=== PATIENT | male | born 1950 | race Caucasian/White ===

== ENCOUNTER 2017-10-23 12:46 | Inpatient (IN) | payer MEDICARE, SELFPAY ==
[2017-10-23] VITALS (9 sets, daily range): BP systolic 125–153; BP diastolic 52–69; PULSE 81–143; RESP 15–22; TEMP 36.7–37.3; O2SAT 95–100; BMI 58.2; BMI 57.4
--- NOTE | 2017-10-23 13:57 | RAD_ITS ---
STUDY: X-RAY CHEST REASON FOR EXAM: Male, 67 years old. Recent fall. TECHNIQUE: Single AP portable view of the chest. COMPARISON: None. FINDINGS: EKG electrodes are seen. Minimal increased markings at the lung bases suggests some mild bibasilar atelectasis. There is no demonstrated pleural abnormality. There is borderline cardiomegaly. Normal mediastinum and osiel. Normal visualized pulmonary arteries. Normal visualized aortic arch and descending thoracic aorta. There are diffuse degenerative changes of the visualized thoracic spine. Normal visualized ribs, clavicles, and shoulders. There is no demonstrated abnormality of the visualized soft tissue structures of the upper abdomen. RAD/Chest 1 View (Portable) IMPRESSION: Mild degree of increased markings at the lung bases suggestive of mild basilar atelectasis. Electronically Signed: Tab Blanco MD at 14:40 EST Tel [phone], Service support ,
--- NOTE | 2017-10-23 13:57 | EKG12_ITS ---
Test Reason : FALL Blood Pressure : / mmHG Vent. Rate : 092 BPM Atrial Rate : 092 BPM P-R Int : 168 ms QRS Dur : 086 ms QT Int : 386 ms P-R-T Axes : 059 061 068 degrees QTc Int : 477 ms Normal sinus rhythm Normal ECG Confirmed by DENISA BAL, TYRA ([id number]), design editor FRANCISCO SARMIENTO ([id number] on 10/25/2017 11:43:05 AM Referred By: VINNIE Confirmed By:TYRA CRAWLEY MD
--- NOTE | 2017-10-23 14:00 | ED.VISSUMM ---
- ER Visit Summary Date of Service: 10/23/17 Chief Complaint: Fell at home and unable to get up History of Present Illness: The patient is a 67 M overly obese with a history of insulin-dependent diabetes, hypertension and chronic severe lymphedema both lower extremities. Patient lives alone. States he was walking to his house today lost his balance and fell late on the floor 3 hours was able to get up. He states he was found by the person who brings him meals to his home. He really denies any his head or LOC. He denies any specific pain just that he feels he was unable to get up. He has had some recent diarrhea but no nausea. No headache or chest pain. No fever. Physical Examination: Vital signs are stable on initial presentation is tachycardic at 140 is currently about 110. Afebrile. Pulse is 90% on room air no signs of hypoxia. H EENT exam is atraumatic. C-spine nontender. Lungs clear to auscultation bilaterally. Diminished in both bases. Heart tachycardic no murmur. Abdomen is morbidly obese but soft. Normal bowel sounds no peritoneal signs. He is moving all 4 extremities. He has severe and chronic lymphedema both lower extremities above his knees. Down of his feet. He is severe in chronic changes of the skin of both feet. Secondary to lymphedema. I do not feel any gross bony deformities. He has no hip pain to palpation. Neurologically is awake and alert without focal deficits. Test Results: White count is elevated 15.9 which is most likely from the breakdown of skin infections his lower extremities. H&H 11.6 and 37. No bands. Electro lites are unremarkable. His gap is 10. Creatinine is 1. His glucose is 97. CPK is elevated but it is only 634. I suspect that secondary to his prolonged downtime. Chest x-ray shows chronic changes but no acute process. His EKG is a sinus rhythm rate of 92 with no acute abnormalities. Emergency Department Course and Treatment: Repeat exam patient is doing well at 1525. He requested something for pain. He will be written for IV morphine and Zofran. Treatment Plan: Patient's current need further evaluation and antibiotic therapy. He will also most likely need podiatry consultation and possible custodial placement. I will speak to the hospitalist about admission Disposition: Admission Impression: Fall at home Prolonged downtime History of chronic lower extremity lymphedema with lower extremity cellulitis History of insulin dependent diabetes This note was generated with [employer] dictation software. It may contain incorrect words, spelling, and punctuation that were not noted in review of the chart prior to signing ED Disposition - Plan for ED Patient: Chief Complaint: Fall Referrals: NOT,DEFINED [NON-STAFF] -
[2017-10-23 14:23] LABS: Absolute Lymphocyte Count 1.15 X10^3/ul (0.83-4.51); Absolute Neutrophil Count 13.4 X10^3/uL (2.0-7.7); Basophil# 0.02 X10^3/uL; Basophil% 0.1 % (0-1); Hematocrit 37.2 % (40-54); Hemoglobin 11.6 g/dl (13.0-16.5); Lymphocyte # 1.15 X10^3/ul (4.0); Lymphocyte % 7.2 % (19-41); Mean Corp Hgb Conc 31.2 g/gl (32-36); Mean Corpuscular Hgb 29.9 pg (27.0-32.0); Mean Corpuscular Volume 95.9 fL (80-94); Mean Platelet Vol. 10.5 fl (6.2-12.0); Monocyte# 1.26 X10^3/uL; Monocyte% 7.9 % (0-10); Neutrophil # 13.36 X10^3/uL (2.7-7.7); Neutrophil % 84.3 % (47-70); Platelet Count 244 K/mm3 (150-450); RBC Distribution Width CV 15.1 % (11.6-14.6); RBC Distribution Width SD 51.1 fl (35.1-43.9); Red Blood Count 3.88 M/mm3 (4.6-6.2); White Blood Count 15.9 K/mm3 (4.4-11.0)
[2017-10-23 14:24] LABS: POSITIVE COUNT NO; POSITIVE DIFFERENTIAL NO; POSITIVE MORPHOLOGY NO
[2017-10-23 14:43] LABS: Anion Gap 10 (5-15); BUN 17 mg/dL (7-18); BUN/Creat Ratio 16.8 RATIO (10-20); CPK Total, Creatine Kinase 634 U/L (39-308); Chloride 102 mmol/L (98-107); Creatinine, Serum 1.01 mg/dL (0.70-1.30); EST Glomerular Filtration Rate 79 mL/min (>60); Est Glom Filt Rate - Afr Amer 95 mL/min (>60); Estimated Creatinine Clearance 71.94 ml/min; Glucose 97 mg/dL (70-110); Potassium 4.2 mmol/L (3.5-5.1); Sodium Level 137 mmol/L (136-145)
--- NOTE | 2017-10-23 16:20 | HP.PCM_ITS ---
Problem List (1) Diabetic foot infection Status: Acute (2) Failure to thrive Status: Acute (3) Diabetes Status: Chronic (4) HTN (hypertension) Status: Chronic (5) Super obesity Status: Chronic (6) Lymphedema of both lower extremities Status: Chronic (7) Dyslipidemia Status: Chronic (8) GERD (gastroesophageal reflux disease) Status: Chronic (9) H/O poor personal hygiene Status: Chronic History of Present Illness Date of Admission: 10/23/17 Chief Complaint: fell The patient is a 67 year old M who fell and unable to get himself up. Patient was brought to the hospital and there patient was noted to have very severe diabetic foot cellulitis and have been requested for admission as such. Patient did not receive any antibiotics nor any imaging outside of a chest x- ray in the emergency room. Patient states that he has had lymphedema for many years and he has been using his lymphedema wraps. Patient has chronic changes to his feet and had been seeing podiatry but his certified nurses' aide retired years ago so has not seen a certified nurses' aide since then. Patient has just been seeing his primary care doctor for his medical care. Patient states that he has pretty much confined to a recliner and does note pain in the backs of his legs more recently. Patient has erythema and very malodorous feet and legs with lichenification of his feet and also his lower extremities. [] Past Medical History Past Medical History (Chronic Problems): Chronic Problems Diabetes (Chronic) HTN (hypertension) (Chronic) Super obesity (Chronic) Lymphedema of both lower extremities (Chronic) Dyslipidemia (Chronic) GERD (gastroesophageal reflux disease) (Chronic) H/O poor personal hygiene (Chronic) Allergies JOSHUA Inhibitors Allergy (Verified 08/31/14 16:29) Swelling cephalexin monohydrate [From Keflex] Allergy (Verified 08/31/14 16:29) Other Penicillins Allergy (Verified 08/31/14 16:29) Rash ibuprofen Adverse Reaction (Verified 08/31/14 16:29) Other naproxen Adverse Reaction (Verified 08/31/14 16:29) Upset Stomach Home Medications: Ambulatory Orders Medication Instructions Recorded Atenolol 50 mg PO DAILY 08/31/14 Calcitriol 0.5 mcg PO DAILY 08/31/14 Escitalopram Oxalate [Lexapro] 10 mg PO DAILY 08/31/14 Furosemide 40 mg PO BID 08/31/14 Pravastatin [Pravachol] 20 mg PO QHS 08/31/14 Acetaminophen [Tylenol Tablet] 650 mg PO Q6H PRN PRN #30 tablet 09/03/14 Aspirin 325 mg PO DAILY@0800 09/10/14 Insulin NPH Human Isophane 90 unit SQ BID 10/23/17 [Novolin N] Surgical History: cholecystectomy Lives: Alone Smoking Status: Former smoker Tobacco Use: Non-smoker Alcohol: None Drugs: None - *Family History Maternal History Items: No pertinent history, - - No heart disease Review of Systems Constitutional: Denies: Chills, Fever, Weight Change Eyes: Denies: Blurred vision, Double vision HEENT: Denies: Head Aches, Sinus Congestion, Sinus Drainage Cardiovascular: Denies: Chest Pain, Palpitations Respiratory: Denies: Cough, Shortness of breath at rest, Sputum production Gastrointestinal: Reports: - - Hernia. Denies: Abdominal Pain, Nausea, Vomiting Genitourinary: Denies: Dysuria Musculoskeletal: Reports: Leg Pain, - - Leg swelling Skin: Reports: - - Erythema and lichenification of the skin of the lower extremities Neurological: Reports: Balance problems, - - Malaise weakness. Denies: Blurred vision, Double vision, Focal weakness Psychiatric: Denies: Anxiety, Depression, Homicidal Ideations, Suicidal Ideations Endocrine: Denies: Change in Body Habitus, Heat/ Cold Intolerance Hematologic/ Lymphatic: Denies: Easy Bruising, Easy Bleeding, Hx of blood clot VTE Information - Inpt Only VTE Present on Admission: No VTE Pharm Prophylaxis ordered?: Yes Patient Problems: Active and Suspected Problems Diabetic foot infection (Acute) Failure to thrive (Acute) - Physical Exam General: Alert, Cooperative, No apparent distress, - - Morbid obese. Afebrile. HEENT: Atraumatic, Normocephalic, - - No scleral icterus Oral: Moist Mucosa, No Gingival or Mucosal Lesions/ Ulcerations Neck: No Nodes, Thyroid Normal Size and Texture Lungs: Clear to auscultation, Normal air movement, No rhonchi, No wheeze Cardiovascular: Regular rate, Regular Rhythm, Normal S1, Normal S2, No murmurs Abdomen: Soft, Non Tender, Non-Distended, Obese Extremities: No Calf Tenderness, - - Edema bilateral lower extremities. Skin: - - Extensive skin changes lower extremities with lichenification involving bilateral feet extensively also involving his upper legs. Lymphedematous changes lower extremities. Erythema and foul odor emanating from his feet. Multiple superficial ulcers on his legs and feet. On-Q mycosis of his toenails. Musculoskeletal: No Muscle Wasting, - - Morbidly obese and unable to adequately assess joints. Neurological: Neuro grossly intact, Muscle tone normal, Sensory exam intact to light touch and pain Psych/Mental Status: Normal Affect, Appropriate Vital Signs Temp Pulse Resp BP Pulse Ox 36.7 C 88 16 143/64 H 100 10/23/17 12:51 10/23/17 15:50 10/23/17 15:50 10/23/17 15:50 10/23/17 15:50 Oxygen Delivery Method Room Air Weight: 181.437 kg Body Mass Index (BMI) 58.2 Finger Stick Blood Glucose 268 Laboratory Tests Past 24 Hrs 10/23/17 10/23/17 13:02 13:02 WBC 15.9 H RBC 3.88 L Hgb 11.6 L Hct 37.2 L MCV 95.9 H MCH 29.9 MCHC 31.2 L RDW 15.1 H RDW Differential 51.1 H Plt Count 244 MPV 10.5 Immature Gran % (Auto) 0.500 Neut % (Auto) 84.3 H Lymph % (Auto) 7.2 L [place] % (Auto) 7.9 Eos % (Auto) 0.0 Baso % (Auto) 0.1 Absolute Neuts (auto) 13.4 H Absolute Lymphs (auto) 1.15 Total Counted Not Reportable Sodium 137 Potassium 4.2 Chloride 102 Carbon Dioxide 25.0 Anion Gap 10 BUN 17 Creatinine 1.01 Estim Creat Clear Calc 71.94 Est GFR (MDRD) Af Amer 95 Est GFR (MDRD) Non-Af 79 BUN/Creatinine Ratio 16.8 Glucose 97 Calcium 8.0 L Total Creatine Kinase 634 H Assessment/Plan Active and Suspected Problems Diabetic foot infection (Acute) Failure to thrive (Acute) 67-year-old white male presents after falling at home and unable to get up. Patient being admitted for diabetic foot wounds and infection. Also for rehabilitation purposes with physical and Occupational Therapy. 1. Diabetic foot wounds. Patient has very advanced lymphedema, lichenification of his feet. They are profoundly malodorous. Concern is for an underlying infection. Will check x-ray of his feet to see if he has deeper wounds. Patient may need a CAT scan. Patient stated that he would not be able to tolerate an MRI given claustrophobia but told him that he may not a good fit given his body habitus into a MRI scanner. Will ask for podiatry as well as infectious disease to assist. Check wound cultures. We will have wound care evaluate him as well. 2. Failure to thrive Quite frankly I am surprised the patient was able to do as well as he did on his own with his legs being what they are and his other physical limitations. Physical and Occupational Therapy evaluate and treat Explained to patient that he is likely going to require fdc facility upon discharge. 3. Diabetes mellitus type 2 Continue with patient's NPH but will also add sliding scale insulin. Check hemoglobin A1c 4. Lymphedema This is a chronic process. Though looking back in the patient's weights, appears to be pretty stable from 2013, last time he was at this hospital. We will check an echocardiogram. I would be concerned the patient has underlying pulmonary hypertension possibly group 3 due to obstructive sleep apnea. If so, would recommend patient having an outpatient polysomnogram to further evaluate that. 5. Morbid obesity Complicating care. Weight loss advised 6. DVT prophylaxis with low molecular weight heparin. Code Visit Inpatient E&M: 35356 Init Hosp L3
--- NOTE | 2017-10-23 16:46 | ECHOD_ITS ---
Reason For Study: CHF Procedure This was a 2D Doppler, Color Flow transthoracic echocardiogram. The study was technically difficult. Due to morbid obesity. Contrast injection was performed. Exam performed portable in patient room. Left Ventricle Mild concentric left ventricular hypertrophy. The estimated ejection fraction is 65 %. No regional wall motion abnormalities noted. Right Ventricle Moderately dilated right ventricle. Normal systolic function. Atria The left atrium is moderately enlarged. Normal right atrium. Normal atrial septum. Mitral Valve Mild diffuse mitral valve thickening. Mild mitral valve stenosis. Peak transmitral valve gradient 11 mmHg. Mean transmitral valve gradient 5 mmHg. Tricuspid Valve Normal tricuspid valve. Trivial tricuspid valve insufficiency. Right ventricular systolic pressure estimated to be 45 mmHg. Moderate pulmonary hypertension. Aortic Valve Trisinus/trileaflet aortic valve. Moderate diffuse aortic valve thickening. Mild focal aortic valve calcification. Mild restriction of the aortic valve. Mild aortic stenosis. Peak aortic valve gradient 37 mmHg. Mean aortic valve gradient 21 mmHg. Pulmonic Valve Normal pulmonic valve. Great Vessels Normal aortic root. Normal arch. The inferior vena cava is dilated. No collapse of the inferior vena cava. Pericardium/Pleural No pericardial effusion. Medication Diluted definity 3.0ml given slow IV push to enhance endocardial definition. MMode/2D Measurements & Calculations LVIDd: 4.0 cm IVSd: 1.4 cm LVOT diam: 2.1 cm LVIDs: 2.7 cm LVPWd: 1.3 cm LVOT area: 3.4 cm2 RVDd: 4.3 cm FS: 32.4 % Ao root diam: 3.1 cm LAV(MOD-bp): 74.6 ml LA A4 area: 23.8 cm2 LA dimension: 4.7 cm LAV(MOD-bp) Indexed: 27.0 ml/m2 LAV(MOD-sp2): 71.0 ml LAV(MOD-sp4): 76.2 ml RA A4 area: 15.6 cm2 Doppler Measurements & Calculations MV E max cohn: 150.4 cm/sec Lat Peak E' Chon: 7.9 cm/sec Med Peak E' Chon: 8.5 cm/sec MV A max chon: 125.3 cm/sec E/E' lat: 18.9 E/E' med: 17.7 MV E/A: 1.2 MV V2 max: 167.6 cm/sec Ao V2 max: 318.1 cm/sec LV V1 max: 142.8 cm/sec MV max P.5 mmHg Ao max P.1 mmHg LV V1 max P.2 mmHg MV V2 mean: 109.5 cm/sec Ao V2 mean: 217.8 cm/sec LV V1 mean P.1 mmHg MV mean P.3 mmHg Ao mean P.9 mmHg LV V1 mean: 93.5 cm/sec MV V2 VTI: 39.1 cm Ao V2 VTI: 58.5 cm LV V1 VTI: 32.3 cm MVA(VTI): 2.8 cm2 BLANCHE(I,D): 1.9 cm2 BLANCHE(V,D): 1.5 cm2 SV(LVOT): 110.0 ml PA V2 max: 132.9 cm/sec TR max chon: 313.7 cm/sec TR max P.0 mmHg Interpretation Summary Mild concentric left ventricular hypertrophy. The estimated ejection fraction is 65 %. Moderately dilated right ventricle. The left atrium is moderately enlarged. Mild mitral valve stenosis. Trivial tricuspid valve insufficiency. Right ventricular systolic pressure estimated to be 45 mmHg. Moderate pulmonary hypertension. Mild restriction of the aortic valve. Mild aortic stenosis. The study was technically difficult. There is no comparison study available. Contrast injection was performed. Ordering Physician: Rajiv Mojica Referring Physician: NO PCP Performed By: Lexie Peres RDCS, RVT
--- NOTE | 2017-10-23 16:49 | RAD_ITS ---
STUDY: X-RAY - RIGHT FOOT CLINICAL: Male, 67 years old. Infection of the right foot. TECHNIQUE: 2 view(s) of the foot. COMPARISON: None. FINDINGS: Normal talus, calcaneus, and tarsal bones. Dorsal enthesophyte of the calcaneus. Normal visualized subtalar, talonavicular, calcaneocuboid, tarsal and tarsometatarsal articulations. Normal proximal and mid metatarsals. Limited visibility of the metatarsophalangeal joints and phalanges secondary to flexion, overlapping and foreshortening. The distal phalanges are unremarkable. The proximal phalanx of the great toe is unremarkable. The middle phalanx of the second and third toe are unremarkable. The proximal phalanges of the second through the fifth toe, the middle phalanx of the fourth toe and most of the fifth toe is not adequately visualized. Marked soft tissue swelling. RAD/Foot 2 Views IMPRESSION: Negative for a definitive acute bone or joint findings noting that the metatarsophalangeal joints and many of the phalanges are not adequately visualized as outlined above. Marked soft tissue swelling. Electronically Signed: Consuelo Thomas MD at 19:04 EST , Service support ,
--- NOTE | 2017-10-23 16:55 | RAD_ITS ---
STUDY: X-RAY - LEFT FOOT CLINICAL: Male, 67 years old. Infection of the foot. TECHNIQUE: 2 view(s) of the foot. COMPARISON: None. FINDINGS: Normal talus, calcaneus, and tarsal bones. Normal visualized subtalar, talonavicular, calcaneocuboid, tarsal and tarsometatarsal articulations. Mild hypertrophic changes of the first metatarsal. Normal second through the fifth metatarsal. Limited visualization of the metatarsophalangeal joints, phalanges and interphalangeal joints secondary to flexion, overlapping of foreshortening of the toes and related joints. The distal phalanges appear to be normal. The middle phalanges of the second third and fourth toes appear to be normal. The proximal phalanges of the first, second, third and fourth toes are poorly visualized. The middle and proximal phalanges of the fifth toe are poorly visualized and may be abnormal. Marked soft tissue swelling. RAD/Foot 2 Views IMPRESSION: Marked soft tissue swelling without a definite underlying bone or joint abnormality. The phalanges and particularly are poorly visualized in area secondary to flexion, foreshortening and overlapping. The proximal phalanges of the second, third, fourth and especially the fifth toes are very poorly visualized and cannot be described as normal. The middle phalanges are grossly normal. The distal phalanges are all normal. Electronically Signed: Consuelo Thomas MD at 17:35 EST , Service support ,
[2017-10-23] MEDS: oxyCODONE 5 MG Tablet PO ×2 (18:12→22:17)
--- NOTE | 2017-10-23 18:29 | HP.PCM_ITS ---
Problem List (1) Infection of left foot Status: Chronic (2) Type 2 diabetes mellitus with diabetic polyneuropathy Status: Chronic (3) Ulcer of right lower extremity with fat layer exposed Status: Chronic (4) Ulcer of left lower extremity with fat layer exposed Status: Chronic (5) Super obesity Status: Chronic (6) Lymphedema of both lower extremities Status: Chronic (7) H/O poor personal hygiene Status: Chronic (8) Failure to thrive Status: Acute History of Present Illness Date of Admission: 10/23/17 Chief Complaint: leg wounds and left foot infection and pain The patient is a 67 year old M with multiple comorbidities including diabetes with neuropathy, lymphedema, failure to thrive, superobesity presents with progressive worsening of lower extremity wounds that have been present for an unknown timeframe probably over a year. He also has an odor and pain that has presently worse in the past couple days to the left lower extremity. His pain is moderate to severe. She denies trauma. He is not ambulating a significant degree and lives alone at home. He denies routine wound care or hygiene. He has not been to the doctor in many years and is not aware of his past medical history. He fell at home and was on the ground for several hours when he was found by a [employer] worker. Past Medical History Past Medical History (Chronic Problems): Chronic Problems Diabetes (Chronic) HTN (hypertension) (Chronic) Super obesity (Chronic) Lymphedema of both lower extremities (Chronic) Dyslipidemia (Chronic) GERD (gastroesophageal reflux disease) (Chronic) H/O poor personal hygiene (Chronic) Type 2 diabetes mellitus with diabetic polyneuropathy (Chronic) Ulcer of right lower extremity with fat layer exposed (Chronic) Ulcer of left lower extremity with fat layer exposed (Chronic) Infection of left foot (Chronic) Allergies JOSHUA Inhibitors Allergy (Verified 08/31/14 16:29) Swelling cephalexin monohydrate [From Keflex] Allergy (Verified 08/31/14 16:29) Other Penicillins Allergy (Verified 08/31/14 16:29) Rash ibuprofen Adverse Reaction (Verified 08/31/14 16:29) Other naproxen Adverse Reaction (Verified 08/31/14 16:29) Upset Stomach Home Medications: Ambulatory Orders Medication Instructions Recorded Atenolol 50 mg PO DAILY 08/31/14 Calcitriol 0.5 mcg PO DAILY 08/31/14 Escitalopram Oxalate [Lexapro] 10 mg PO DAILY 08/31/14 Furosemide 40 mg PO BID 08/31/14 Pravastatin [Pravachol] 20 mg PO QHS 08/31/14 Acetaminophen [Tylenol Tablet] 650 mg PO Q6H PRN PRN #30 tablet 09/03/14 Aspirin [Aspirin, Baby] 81 mg PO DAILY@0800 10/23/17 Famotidine [Pepcid] 40 mg PO DAILY 10/23/17 Insulin NPH Human Isophane 90 unit SQ BID 10/23/17 [Novolin N] Surgical History: cholecystectomy Lives: Alone Smoking Status: Former smoker Tobacco Use: Non-smoker Alcohol: None Drugs: None - *Family History Maternal History Items: No pertinent history, - - No heart disease Review of Systems Constitutional: Denies: Chills, Fever, Weight Change, Fatigue HEENT: Denies: Sore Throat Cardiovascular: Denies: Chest Pain, Claudication - However he does not report significant ambulation to properly answer this question Respiratory: Denies: Shortness of Breath Gastrointestinal: Reports: Diarrhea. Denies: Nausea, Vomiting Musculoskeletal: Reports: Foot Pain - Left, Leg Pain - Left Skin: Reports: Skin Changes, Wounds, - Neurological: Reports: Balance problems, Numbness VTE Information - Inpt Only VTE Present on Admission: No VTE Mechan Device Prophylaxis: None VTE Pharm Prophylaxis ordered?: Yes Patient Problems: Active and Suspected Problems Diabetic foot infection (Acute) Failure to thrive (Acute) - Physical Exam General: Alert, Oriented x3, Cooperative HEENT: Atraumatic Extremities: No cyanosis, Capillary Refill Less than 3 Seconds - All digits bilateral lower extremity, No Calf Tenderness - Right leg, Diminished Peripheral Pulses - Weak dorsalis pedis and nonpalpable PT pulses bilateral secondary to significant swelling and hyper obesity, Edema, Tenderness - Left ankle particularly the wound site Skin: Ulcer/ Wound - Right anterior leg pre-debridement 1.0 x 1.1 cm x 0.1 cm post debridement (1.1 x 1.2 x 0.1 cm) this ulcer has a granular and fibrous base without odor. The left medial leg measures pre-debridement 4.0 by 3.4 by by 0.1 cm (post debridement 4.1 x 3.5 x 0.1 cm ) with the same wound base. The distal lateral left leg ulcer measures approximately pre-debridement 5 x 5 x 0.1 cm (5.1 x 5.1 x 0.1 cm). This wound bed is odorous, fibrous, dark discoloration with exposed subcutaneous tissue. There is no exposed bone or tendon or fascia., - - Bilateral leg and foot skin is poor quality with lichenification, invagination, animal hair debris, maceration and warmth equal to bilateral legs. Left heel is warm to touch and there is some additional skin peeling here. There is no deep bulla or palpable drainable abscess however there is still concern for this due to the significant induration of bilateral lower extremities particularly the left with his noted pain. There is no purulence on expression or madhu necrosis bilateral Musculoskeletal: Muscle Wasting, Tenderness - Palpation to left heel lower lateral leg Lymphatic: - - Lymphedema bilateral lower extremities foot leg and thigh Neurological: - - Lack of epicritic sensation bilateral lower extremities light touch and no pain with wound ulcer debridement bilateral lower extremity Psych/Mental Status: Normal Affect, Appropriate, Anxious Vital Signs Temp Pulse Resp BP Pulse Ox 98.1 F 91 15 146/64 H 97 10/23/17 12:51 10/23/17 16:19 10/23/17 16:19 10/23/17 16:19 10/23/17 16:19 Oxygen Delivery Method Room Air Assessment/Plan Active and Suspected Problems Diabetic foot infection (Acute) Failure to thrive (Acute) Left leg ulcers with fat layer exposed, infected Rule out abscess or deeper infection of the left lower extremity leg and heel areas Left lower extremity pain Deep venous thrombosis remains a differential diagnosis Right leg ulcer with fat layer exposed, not infected Diabetes with neuropathy Superobesity Bilateral chronic lower extremity lymphedema and edema Other comorbidities being worked up I reviewed and discussed Mr. Loza's case with him as well as the intensive care unit staff. His diagnostic data was reviewed and it is noted he has a white blood cell count that is elevated to 15.8 and a sedimentation rate of 113. His C-reactive protein level is pending. His left foot x-ray is negative for soft tissue emphysema or foreign body, acute fracture dislocation, or obvious Charcot changes. Additional leg x-rays were ordered and pending stat. I also recommended an MRI to further assess for abscess or deeper infection. The patient's body habitus will not allow him to fit in the MRI machine and he is claustrophobic. Therefore an urgent CT scan was ordered and the results are pending. All of the ulcer sites a per mentioned were debrided with a 15 blade scalpel after verbal consent was obtained. Local anesthetic was not required due to loss of feeling due to neuropathy. This was performed in a subcutaneous excisional manner to remove nonviable subcutaneous tissue, fibrous tissue, biofilm, and slough. Pressure was applied to maintain hemostasis and he tolerated this well. Aerobic and anaerobic and MRSA PCR cultures were taken from the infected left leg ulcer site. His hygiene is very poor and his legs were aggressively cleaned the evening. Vaseline was applied as an emollient to soften his lichenified tissue and additional he declined surgical scrub will be performed tomorrow bedside. Adaptic was placed over the ulcer sites and a multilayer compression dressing. He was encouraged to elevate and to keep his painful left heel off of the bed. He understands he is high risk for limb loss. Thank you for the consultation. I will continue to follow him very close while in house. Pending his CT scan and progress with the IV antibiotics overnight he understands surgical intervention may be indicated. Infectious disease is on consultation and will be appreciated. To continue on IV antibiotics at this time; broad-spectrum meropenem and vancomycin. His chronic lymphedema and lack of self-care will need to be addressed as a part of his discharge planning after his more critical issues are considered controlled. Wound care consultation will also be appreciated. Lack of prophylaxis, pain management, and medical management per primary team is appreciated. Corazon De La Cruz, [facility] [phone]
--- NOTE | 2017-10-23 18:36 | CT_ITS ---
CT Lower Extremity W/O Contrast INDICATION: LEFT LOWER EXTREMITY ADVANCED LYMPHEDEMA, CONCERN FOR ABSCESS OR INFECTION, DIAB, HTN, LEG CELLULITIS COMPARISON: None TECHNIQUE: Axial noncontrast CT imaging of the left lower extremity with coronal and sagittal reformatted images. Radiation dose optimization technique applied. FINDINGS: There is diffuse skin thickening at the lower leg from the knee to the foot with skin thickness up to 1 cm. Multiple calcifications, some of which may be phleboliths are seen in the superficial subcutaneous soft tissue. Subcutaneous edema is noted. The muscle compartments appear well delineated. There is no evidence of drainable fluid collection. There is no evidence of soft tissue air. There is no evidence of osseous erosion. CT/Extremity Lower without Contra IMPRESSION: Severe diffuse skin thickening and subcutaneous edema as detailed above. No evidence of drainable abscess. at 0035 Reported and signed by: Cynthia Phillips MD Electronically Signed: Cynthia Phillips MD at 23:34 EST Tel , Service support ,
[2017-10-23 18:57] LABS: Erythrocyte Sedimentation Rate 113 mm/hr (0-20)
[2017-10-23 19:25] LABS: Hemoglobin A1c 8.4 % (4.2-6.3)
[2017-10-23] MEDS: Furosemide 40 MG Tablet PO (21:01)
[2017-10-23] MEDS: Pravastatin 20 MG Tablet PO (21:02)
[2017-10-23 21:23] LABS: Glucose 55 mg/dL (70-110)
[2017-10-23] MEDS: 0.9% NaCl Peripheral Flush Adult/Peds IV (21:56)
[2017-10-23] MEDS: Dextrose 50%-Water 25 GM/50 ML DISP.SYRIN IV (21:56)
[2017-10-23 22:12] LABS: Probe Check PASS; Staph aureus DNA By PCR POSITIVE (Negative)
[2017-10-23 22:21] LABS: M R Staph aureus DNA By PCR POSITIVE (Negative)
[2017-10-23 22:41] LABS: Bedside Glucose 53 mg/dL (70-110)
[2017-10-23 22:41] LABS: Bedside Glucose 58 mg/dL (70-110)
[2017-10-23 22:41] LABS: Bedside Glucose 39 mg/dL (70-110)
[2017-10-23 22:41] LABS: Bedside Glucose 106 mg/dL (70-110)
[2017-10-23] MEDS: LORazepam 2 MG/ML Syringe IV (23:01)
--- NOTE | 2017-10-23 23:30 | RAD_ITS ---
XR Tibia/Fibula 2 Views INDICATION: left tib/fib infection COMPARISON: None TECHNIQUE: Frontal and lateral views of the left tibia and fibula FINDINGS: Degenerative changes are noted at the left knee with joint space narrowing, predominantly at the medial compartment with large osteophytes. The tibia and fibula appear intact. Ankle mortise appears preserved. Multiple phleboliths are noted. Diffuse soft tissue swelling is noted. RAD/Tibia & Fibula 2 Views IMPRESSION: Degenerative changes and diffuse soft tissue swelling. No evidence of fracture or erosion. at 0028 Reported and signed by: Cynthia Phillips MD Electronically Signed: Cynthia Phillips MD at 23:26 EST Tel , Service support ,
[2017-10-24 03:00] VITALS: BP 142/45; PULSE 102; RESP 18; TEMP 37.9; O2SAT 94
[2017-10-24 03:16] LABS: Bedside Glucose 104 mg/dL (70-110)
[2017-10-24] MEDS: oxyCODONE 5 MG Tablet PO ×3 (03:43→19:25)
[2017-10-24 04:08] LABS: Anion Gap 8 (5-15); BUN 16 mg/dL (7-18); BUN/Creat Ratio 16.5 RATIO (10-20); Calcium,Total 7.5 mg/dL (8.5-10.1); Chloride 102 mmol/L (98-107); Creatinine, Serum 0.97 mg/dL (0.70-1.30); EST Glomerular Filtration Rate 83 mL/min (>60); Est Glom Filt Rate - Afr Amer 100 mL/min (>60); Estimated Creatinine Clearance 74.91 ml/min; Glucose 97 mg/dL (70-110); Potassium 4.2 mmol/L (3.5-5.1); Sodium Level 137 mmol/L (136-145)
[2017-10-24 04:23] LABS: Absolute Lymphocyte Count 1.88 X10^3/ul (0.83-4.51); Absolute Neutrophil Count 11.2 X10^3/uL (2.0-7.7); Basophil# 0.02 X10^3/uL; Basophil% 0.1 % (0-1); Eosinophil# 0.01 X10^3/uL; Eosinophils% 0.1 % (0-5); Hematocrit 33.2 % (40-54); Hemoglobin 10.2 g/dl (13.0-16.5); Lymphocyte # 1.88 X10^3/ul (4.0); Lymphocyte % 12.4 % (19-41); Mean Corp Hgb Conc 30.7 g/gl (32-36); Mean Corpuscular Hgb 29.5 pg (27.0-32.0); Monocyte# 2.05 X10^3/uL; Monocyte% 13.5 % (0-10); Neutrophil # 11.23 X10^3/uL (2.7-7.7); Neutrophil % 73.7 % (47-70); Platelet Count 220 K/mm3 (150-450); RBC Distribution Width CV 15.3 % (11.6-14.6); RBC Distribution Width SD 53.3 fl (35.1-43.9); Red Blood Count 3.46 M/mm3 (4.6-6.2); White Blood Count 15.2 K/mm3 (4.4-11.0)
[2017-10-24 04:24] LABS: Differential Indicated SCAN CRITERIA MET; POSITIVE COUNT NO; POSITIVE DIFFERENTIAL YES; POSITIVE MORPHOLOGY NO
[2017-10-24 05:22] LABS: Differential Comment SCANNED
--- NOTE | 2017-10-24 07:50 | PHA.PHARE_ITS ---
Subjective/Objective Date: 10/24/17 Time: 07:48 Antibiotic: Vancomycin Type of Consult: New start Indications for Therapy: Skin/Soft Tissue Labs: Sodium 137 mmol/L (136-145) 10/24/17 03:45 Potassium 4.2 mmol/L (3.5-5.1) 10/24/17 03:45 Chloride 102 mmol/L (98-107) 10/24/17 03:45 Carbon Dioxide 27.0 mmol/L (21.0-32.0) 10/24/17 03:45 Anion Gap 8 (5-15) 10/24/17 03:45 BUN 16 mg/dL (7-18) 10/24/17 03:45 Creatinine 0.97 mg/dL (0.70-1.30) 10/24/17 03:45 Est GFR (MDRD) Af Amer 100 mL/min (>60) 10/24/17 03:45 Est GFR (MDRD) Non-Af 83 mL/min (>60) 10/24/17 03:45 BUN/Creatinine Ratio 16.5 RATIO (10-20) 10/24/17 03:45 Glucose 97 mg/dL (70-110) 10/24/17 03:45 Pharmacy Plan for Drug Dosing: Goal vancomycin trough 10-15 mcg/mL. Patient loaded with vancomycin 2500mg IV x1 , recommend to continue 1000mg IV q12h for est trough 10 mcg/mL. Patient will likely begin to accumulate at some point given BMI, will monitor closely. Pharmacy Service will continue to monitor and adjust dosing as required. Pharmacy to order these labs: Trough - Vancomycin Labs to be done on (date): 10/26/17 Labs to be done (time): 09:00
--- NOTE | 2017-10-24 08:33 | PCM.PN.HOSP ---
Patient Problems: Active and Suspected Problems Diabetic foot infection (Acute) Failure to thrive (Acute) Subjective: No new events. Vitals/I&O's: Vital Signs Temp Pulse Resp BP Pulse Ox 37.9 C H 102 H 18 142/45 H 94 10/24/17 03:00 10/24/17 03:00 10/24/17 03:00 10/24/17 03:00 10/24/17 03:00 Oxygen Flow Rate 2 Oxygen Delivery Method Nasal Cannula Weight: 181.1 kg Body Mass Index (BMI) 57.4 Intake and Output for Last 24 Hours 10/22/17 10/23/17 10/24/17 23:59 23:59 23:59 Intake Total 1835 / 1835 Output Total 1600 / 1600 Balance 235 / 235 General: Alert, Cooperative, No apparent distress HEENT: Atraumatic, Normocephalic Neck: No Nodes, Thyroid Normal Size and Texture Lungs: Clear to auscultation, Normal air movement, No rhonchi, No wheeze Cardiovascular: Regular rate, Regular Rhythm, Normal S1, Normal S2, No murmurs Abdomen: Bowel Sounds Present, Soft, Non Tender, Non-Distended, No Hepato-splenomegaly, Passing Flatus, Obese Extremities: Edema, - - Lateral lymphedema wraps, did not remove. Psych/Mental Status: Normal Affect, Appropriate Laboratory Results 10/23/17 18:30: S.aureus Protein A PCR POSITIVE H, MRSA (PCR) POSITIVE H 10/23/17 18:45: ESR 113 H 10/23/17 18:45: Hemoglobin A1c 8.4 H 10/23/17 20:44: POC Glucose 39 L* 10/23/17 20:57: Glucose 55 L 10/23/17 21:20: POC Glucose 53 L 10/23/17 21:43: POC Glucose 58 L 10/23/17 22:15: POC Glucose 106 10/24/17 03:05: POC Glucose 104 10/24/17 03:45: Sodium 137, Potassium 4.2, Chloride 102, Carbon Dioxide 27.0, Anion Gap 8, BUN 16, Creatinine 0.97, Estim Creat Clear Calc 74.91, Est GFR (MDRD) Af Amer 100, Est GFR (MDRD) Non-Af 83, BUN/Creatinine Ratio 16.5, Glucose 97, Calcium 7.5 L 10/24/17 03:45: WBC 15.2 H, RBC 3.46 L, Hgb 10.2 L, Hct 33.2 L, MCV 96.0 H, MCH 29.5, MCHC 30.7 L, RDW 15.3 H, RDW Differential 53.3 H, Plt Count 220, MPV 10.0, Immature Gran % (Auto) 0.200, Neut % (Auto) 73.7 H, Lymph % (Auto) 12.4 L, Giles % (Auto) 13.5 H, Eos % (Auto) 0.1, Baso % (Auto) 0.1, Absolute Neuts (auto) 11.2 H, Absolute Lymphs (auto) 1.88, Total Counted Not Reportable, Differential Comment SCANNED, Diff Path Review May foll Current Medications Acetaminophen (Tylenol) 650 mg PO Q6H PRN PRN PRN Reason: Mild Pain (scale 0-3)/T>100.7 Aspirin (Aspirin) 325 mg PO DAILY@0800 [facility] Atenolol (Tenormin (Beta Patrick)) 50 mg PO DAILY [facility] Calcitriol (Rocaltrol) 0.5 mcg PO DAILY [facility] Dextrose (D50w Syringe) 0 gm IV X1 PRN; Protocol PRN Reason: Hypoglycemia Last Admin: 10/23/17 21:56 Dose: 25 gm Enoxaparin Sodium (Lovenox) 40 mg SC DAILY@1000 [facility] Escitalopram Oxalate (Lexapro) 10 mg PO DAILY [facility] Furosemide (Lasix) 40 mg PO BIDLX [facility] Last Admin: 10/23/17 21:01 Dose: 40 mg Glucagon () 1 mg IM .X1 PRN PRN Reason: Hypoglycemia Sodium Chloride () 250 mls @ 15 mls/hr IV .[id number] PRN PRN Reason: SALINE FLUSH Sodium Chloride () 250 mls @ 15 mls/hr IV .[id number] PRN PRN Reason: SALINE FLUSH Meropenem 500 mg/ Sodium (Chloride) 60 mls @ 100 mls/hr IV Q6 [facility] Last Admin: 10/24/17 05:21 Dose: 100 mls/hr Vancomycin HCl (Vancomycin) 1,000 mg in 200 mls @ 200 mls/hr IV Q12H [facility] Influenza Virus Vaccine Quadrival (Fluarix/Fluzone) 0.5 ml IM .ONCE ONE Stop: 10/24/17 10:01 Insulin Aspart (Novolog Flexpen ([place])) 0 units SC TIDAC KARLEE PRN Reason: Protocol Last Admin: 10/23/17 21:00 Dose: Not Given Insulin Human NPH (Humulin N ([place])) 90 units SC BIDAC [facility]AR[facility] Magnesium Hydroxide (Milk Of Magnesia) 30 ml PO DAILY PRN PRN PRN Reason: Constipation Nutritional Formula (Lactose Free) (Glucerna Shake) 120 ml PO 4X/DAY [facility] Ondansetron HCl (Zofran) 4 mg IV Q8H PRN PRN PRN Reason: Nausea Oxycodone HCl (Oxyir) 5 mg PO Q4H PRN PRN PRN Reason: Moderate Pain (pain scale 4-5) Last Admin: 10/24/17 03:43 Dose: 5 mg Pravastatin Sodium (Pravachol) 20 mg PO QHS [facility] Last Admin: 10/23/17 21:02 Dose: 20 mg Sodium Chloride () 5 - 30 ml IV UD PRN PRN Reason: SALINE FLUSH Last Admin: 10/23/17 21:56 Dose: 20 ml Assessment/Plan Active and Suspected Problems Diabetic foot infection (Acute) Failure to thrive (Acute) 67-year-old white male presents after falling at home and unable to get up. Patient being admitted for diabetic foot wounds and infection. Also for rehabilitation purposes with physical and Occupational Therapy. 1. Diabetic foot wounds. Patient has very advanced lymphedema, lichenification of his feet. They are profoundly malodorous. Concern is for an underlying infection. Patient stated that he would not be able to tolerate an MRI given claustrophobia but told him that he may not a good fit given his body habitus into a MRI scanner. Will ask for podiatry as well as infectious disease to assist. Check wound cultures. We will have wound care evaluate him as well. Preliminary serology positive for MRSA staph aureus. Continue with vancomycin and meropenem. Tib-fib x-rays show degenerative changes with soft tissue swelling. CAT scan showed severe diffuse skin thickening and subcutaneous edema. No evidence of any drainable abscess. Foot x-ray showed marked soft tissue swelling without definite underlying bone or joint abnormality. 2. Failure to thrive Quite frankly I am surprised the patient was able to do as well as he did on his own with his legs being what they are and his other physical limitations. Physical and Occupational Therapy evaluate and treat Explained to patient that he is likely going to require snf facility upon discharge. 3. Diabetes mellitus type 2 Continue with patient's NPH but will also add sliding scale insulin. A1c 8.4. Blood sugars here thus far appear to be okay. Patient did have low blood sugar 55 this morning. 4. Lymphedema This is a chronic process. Though looking back in the patient's weights, appears to be pretty stable from 2013, last time he was at this hospital. We will check an echocardiogram. I would be concerned the patient has underlying pulmonary hypertension possibly group 3 due to obstructive sleep apnea. If so, would recommend patient having an outpatient polysomnogram to further evaluate that. Check liver function panel. 5. Morbid obesity Complicating care. Weight loss advised 6. DVT prophylaxis with low molecular weight heparin. Code Visit Inpatient E&M: 43670 Subs Hosp L2
--- NOTE | 2017-10-24 08:38 | PN_ITS ---
Patient Problems: Active and Suspected Problems Diabetic foot infection (Acute) Failure to thrive (Acute) Subjective: No new events. Vitals/I&O's: Vital Signs Temp Pulse Resp BP Pulse Ox 37.9 C H 102 H 18 142/45 H 94 10/24/17 03:00 10/24/17 03:00 10/24/17 03:00 10/24/17 03:00 10/24/17 03:00 Oxygen Flow Rate 2 Oxygen Delivery Method Nasal Cannula Weight: 181.1 kg Body Mass Index (BMI) 57.4 Intake and Output for Last 24 Hours 10/22/17 10/23/17 10/24/17 23:59 23:59 23:59 Intake Total 1835 / 1835 Output Total 1600 / 1600 Balance 235 / 235 General: Alert, Cooperative, No apparent distress HEENT: Atraumatic, Normocephalic Neck: No Nodes, Thyroid Normal Size and Texture Lungs: Clear to auscultation, Normal air movement, No rhonchi, No wheeze Cardiovascular: Regular rate, Regular Rhythm, Normal S1, Normal S2, No murmurs Abdomen: Bowel Sounds Present, Soft, Non Tender, Non-Distended, No Hepato- splenomegaly, Passing Flatus, Obese Extremities: Edema, - - Lateral lymphedema wraps, did not remove. Psych/Mental Status: Normal Affect, Appropriate Laboratory Results 10/23/17 18:30: S.aureus Protein A PCR POSITIVE H, MRSA (PCR) POSITIVE H 10/23/17 18:45: ESR 113 H 10/23/17 18:45: Hemoglobin A1c 8.4 H 10/23/17 20:44: POC Glucose 39 L* 10/23/17 20:57: Glucose 55 L 10/23/17 21:20: POC Glucose 53 L 10/23/17 21:43: POC Glucose 58 L 10/23/17 22:15: POC Glucose 106 10/24/17 03:05: POC Glucose 104 10/24/17 03:45: Sodium 137, Potassium 4.2, Chloride 102, Carbon Dioxide 27.0, Anion Gap 8, BUN 16, Creatinine 0.97, Estim Creat Clear Calc 74.91, Est GFR ( MDRD) Af Amer 100, Est GFR (MDRD) Non-Af 83, BUN/Creatinine Ratio 16.5, Glucose 97, Calcium 7.5 L 10/24/17 03:45: WBC 15.2 H, RBC 3.46 L, Hgb 10.2 L, Hct 33.2 L, MCV 96.0 H, MCH 29.5, MCHC 30.7 L, RDW 15.3 H, RDW Differential 53.3 H, Plt Count 220, MPV 10.0 , Immature Gran % (Auto) 0.200, Neut % (Auto) 73.7 H, Lymph % (Auto) 12.4 L, [place] % (Auto) 13.5 H, Eos % (Auto) 0.1, Baso % (Auto) 0.1, Absolute Neuts (auto ) 11.2 H, Absolute Lymphs (auto) 1.88, Total Counted Not Reportable, Differential Comment SCANNED, Diff Path Review May foll Current Medications Acetaminophen (Tylenol) 650 mg PO Q6H PRN PRN PRN Reason: Mild Pain (scale 0-3)/T>100.7 Aspirin (Aspirin) 325 mg PO DAILY@0800 [facility] Atenolol (Tenormin (Beta Patrick)) 50 mg PO DAILY [facility] Calcitriol (Rocaltrol) 0.5 mcg PO DAILY [facility] Dextrose (D50w Syringe) 0 gm IV X1 PRN; Protocol PRN Reason: Hypoglycemia Last Admin: 10/23/17 21:56 Dose: 25 gm Enoxaparin Sodium (Lovenox) 40 mg SC DAILY@1000 [facility] Escitalopram Oxalate (Lexapro) 10 mg PO DAILY [facility] Furosemide (Lasix) 40 mg PO BIDLX [facility] Last Admin: 10/23/17 21:01 Dose: 40 mg Glucagon () 1 mg IM .X1 PRN PRN Reason: Hypoglycemia Sodium Chloride () 250 mls @ 15 mls/hr IV .[id number] PRN PRN Reason: SALINE FLUSH Sodium Chloride () 250 mls @ 15 mls/hr IV .[id number] PRN PRN Reason: SALINE FLUSH Meropenem 500 mg/ Sodium (Chloride) 60 mls @ 100 mls/hr IV Q6 [facility] Last Admin: 10/24/17 05:21 Dose: 100 mls/hr Vancomycin HCl (Vancomycin) 1,000 mg in 200 mls @ 200 mls/hr IV Q12H [facility] Influenza Virus Vaccine Quadrival (Fluarix/Fluzone) 0.5 ml IM .ONCE ONE Stop: 10/24/17 10:01 Insulin Aspart (Novolog Flexpen ([facility])) 0 units SC TIDAC KARLEE PRN Reason: Protocol Last Admin: 10/23/17 21:00 Dose: Not Given Insulin Human NPH (Humulin N ([facility])) 90 units SC BIDAC KARLEE Magnesium Hydroxide (Milk Of Magnesia) 30 ml PO DAILY PRN PRN PRN Reason: Constipation Nutritional Formula (Lactose Free) (Glucerna Shake) 120 ml PO 4X/DAY KARLEE Ondansetron HCl (Zofran) 4 mg IV Q8H PRN PRN PRN Reason: Nausea Oxycodone HCl (Oxyir) 5 mg PO Q4H PRN PRN PRN Reason: Moderate Pain (pain scale 4-5) Last Admin: 10/24/17 03:43 Dose: 5 mg Pravastatin Sodium (Pravachol) 20 mg PO QHS KARLEE Last Admin: 10/23/17 21:02 Dose: 20 mg Sodium Chloride () 5 - 30 ml IV UD PRN PRN Reason: SALINE FLUSH Last Admin: 10/23/17 21:56 Dose: 20 ml Assessment/Plan Active and Suspected Problems Diabetic foot infection (Acute) Failure to thrive (Acute) 67-year-old white male presents after falling at home and unable to get up. Patient being admitted for diabetic foot wounds and infection. Also for rehabilitation purposes with physical and Occupational Therapy. 1. Diabetic foot wounds. Patient has very advanced lymphedema, lichenification of his feet. They are profoundly malodorous. Concern is for an underlying infection. Patient stated that he would not be able to tolerate an MRI given claustrophobia but told him that he may not a good fit given his body habitus into a MRI scanner. Will ask for podiatry as well as infectious disease to assist. Check wound cultures. We will have wound care evaluate him as well. Preliminary serology positive for MRSA staph aureus. Continue with vancomycin and meropenem. Tib-fib x-rays show degenerative changes with soft tissue swelling. CAT scan showed severe diffuse skin thickening and subcutaneous edema. No evidence of any drainable abscess. Foot x-ray showed marked soft tissue swelling without definite underlying bone or joint abnormality. 2. Failure to thrive Quite frankly I am surprised the patient was able to do as well as he did on his own with his legs being what they are and his other physical limitations. Physical and Occupational Therapy evaluate and treat Explained to patient that he is likely going to require care home facility upon discharge. 3. Diabetes mellitus type 2 Continue with patient's NPH but will also add sliding scale insulin. A1c 8.4. Blood sugars here thus far appear to be okay. Patient did have low blood sugar 55 this morning. 4. Lymphedema This is a chronic process. Though looking back in the patient's weights, appears to be pretty stable from 2013, last time he was at this hospital. We will check an echocardiogram. I would be concerned the patient has underlying pulmonary hypertension possibly group 3 due to obstructive sleep apnea. If so, would recommend patient having an outpatient polysomnogram to further evaluate that. Check liver function panel. 5. Morbid obesity Complicating care. Weight loss advised 6. DVT prophylaxis with low molecular weight heparin. Code Visit Inpatient E&M: 45319 Subs Hosp L2
[2017-10-24 09:16] LABS: Bedside Glucose 104 mg/dL (70-110)
[2017-10-24 10:31] VITALS: BP 120/68; PULSE 104; RESP 18; TEMP 37.7; O2SAT 95
--- NOTE | 2017-10-24 10:31 | PN_ITS ---
Patient Problems: Active and Suspected Problems Diabetic foot infection (Acute) Failure to thrive (Acute) Subjective: This 67-year-old male with significant past medical history superobesity, the diabetes with peripheral neuropathy, bilateral chronic lymphedema was seen bedside today for bilateral lower extremity ulcers with cellulitis and pain. He rates his pain as a 5 out of 10 today and has been keeping his legs elevated. He did obtain his ordered imaging studies including x-rays and CT scan. He denies fever, chill, nausea, vomiting. He is wearing offloading heel boot to both lower extremities. - Physical Exam General: Alert, Oriented x3, Cooperative Extremities: No cyanosis, Capillary Refill Less than 3 Seconds, No Calf Tenderness - negative dickinson sign bilateral, Diminished Peripheral Pulses, Edema - bilateral lower extremity Skin: Ulcer/ Wound - There is continued skin discontinuity to the anterior and lateral right leg and the medial and lateral left leg. The wounds consists of granulation tissue, fibrous tissue, and devitalized superficial liquefied tissue. Discontinue lichenification to the entire lower extremity and foot. No interdigital maceration. The odor is decreased. There is no bogginess or fluctuance on palpation bilateral lower extremity. He has significant edema reduction with increased skin wrinkles. the erythema and calor has decreased. There is no deep probing to bone or deeper tissues bilateral Musculoskeletal: Muscle Wasting, Tenderness - .Active range of motion digits bilateral. The skin is very indurated and the compartments of bilateral lower extremities remain soft wound manipulation pain bilateral. Decreased pain to lateral posterior left heel however this is continued right were contracted to the bed. Neurological: - - Lack of epicritic sensation light touch bilateral lower extremities Psych/Mental Status: Normal Affect, Appropriate Vital Signs Temp Pulse Resp BP Pulse Ox 100.2 F H 102 H 18 142/45 H 94 10/24/17 03:00 10/24/17 03:00 10/24/17 03:00 10/24/17 03:00 10/24/17 03:00 Oxygen Flow Rate 2 Oxygen Delivery Method Nasal Cannula Weight: 181.1 kg Body Mass Index (BMI) 57.4 Intake and Output for Last 24 Hours 10/22/17 10/23/17 10/24/17 23:59 23:59 23:59 Intake Total 1835 / 1835 Output Total 1600 / 1600 Balance 235 / 235 Laboratory Tests Past 24 Hrs 01/10/23/17 10/23/17 18:30 18:45 18:45 WBC RBC Hgb Hct MCV MCH MCHC RDW RDW Differential Plt Count MPV Immature Gran % (Auto) Neut % (Auto) Lymph % (Auto) [place] % (Auto) Eos % (Auto) Baso % (Auto) Absolute Neuts (auto) Absolute Lymphs (auto) Total Counted Differential Comment Diff Path Review ESR 113 H Sodium Potassium Chloride Carbon Dioxide Anion Gap BUN Creatinine Estim Creat Clear Calc Est GFR (MDRD) Af Amer Est GFR (MDRD) Non-Af BUN/Creatinine Ratio Glucose Hemoglobin A1c 8.4 H Calcium S.aureus Protein A PCR POSITIVE H MRSA (PCR) POSITIVE H 10/23/17 10/24/17 10/24/17 20:57 03:45 03:45 WBC 15.2 H RBC 3.46 L Hgb 10.2 L Hct 33.2 L MCV 96.0 H MCH 29.5 MCHC 30.7 L RDW 15.3 H RDW Differential 53.3 H Plt Count 220 MPV 10.0 Immature Gran % (Auto) 0.200 Neut % (Auto) 73.7 H Lymph % (Auto) 12.[address] [place] % (Auto) 13.5 H Eos % (Auto) 0.1 Baso % (Auto) 0.1 Absolute Neuts (auto) 11.2 H Absolute Lymphs (auto) 1.88 Total Counted Not Reportable Differential Comment SCANNED Diff Path Review January ESR Sodium 137 Potassium 4.2 Chloride 102 Carbon Dioxide 27.0 Anion Gap 8 BUN 16 Creatinine 0.97 Estim Creat Clear Calc 74.91 Est GFR (MDRD) Af Amer 100 Est GFR (MDRD) Non-Af 83 BUN/Creatinine Ratio 16.5 Glucose 55 L 97 Hemoglobin A1c Calcium 7.5 L S.aureus Protein A PCR MRSA (PCR) POC Glucose 10/24/17 10/24/17 10/23/17 09:12 03:05 22:15 POC Glucose 104 104 106 10/23/17 10/23/17 10/23/17 21:43 21:20 20:44 POC Glucose 58 L 53 L 39 L* Assessment/Plan Active and Suspected Problems Diabetic foot infection (Acute) Failure to thrive (Acute) Left leg ulcers with fat layer exposed, infected Rule out abscess or deeper infection of the left lower extremity leg and heel areas Left lower extremity pain Right leg ulcer with fat layer exposed, not infected Diabetes with neuropathy Superobesity Bilateral chronic lower extremity lymphedema and edema Other comorbidities being worked up I reviewed and discussed Mr. Loza's case again this morning. His diagnostic data was reviewed and it is noted he has a white blood cell count that is elevated to 15.2. He is afebrile at this time and a sedimentation rate of 113. His left foot and left leg x-ray are negative for soft tissue emphysema or foreign body, acute fracture dislocation, or obvious Charcot changes. His left lower extremity CT scan was reviewed without soft tissue emphysema or foreign fluid abscess. There is also no acute fractures or dislocations or Charcot or osseous destruction sites appreciated. Cultures were taken yesterday and the final results are pending. Infectious disease is on consultation and is appreciated. To continue on IV antibiotics at this time; broad-spectrum meropenem and vancomycin. Local wound care is continued with Adaptic and multilayer compression dressings with Unna boots, Kerlix, and Mike wrap. A formal leg scrub will be performed today. Clinically his edema, wounds, and decreased warmth are improved compared to yesterday evening but still present. Clinically most of his palpation pain is to the lateral heel where he comes in contact with pressure from the bed. To continue strict offloading With both the pillow boot as well as hanging his heels over propped pillows in bed. To continue with elevation. The podiatry team will continue to follow him closely in house. DVT prophylaxis, pain management, and medical management per primary team is appreciated. Corzaon De La Cruz, [facility] [phone]
--- NOTE | 2017-10-24 10:35 | CON.PCM_ITS ---
Problem List (1) Diabetic foot infection Status: Acute Reason for Consult: infection of BLE Consulted by: Dr. Mojica History of Present Illness: The patient is a 67 year old M with T2DM, chronic lymphedema who presented after being found down at home. Reports years of leg swelling, over past few weeks, increasing pain, redness, drainage, and swelling. Has BLE neuropathy. Has a dog at home that licks his legs. Some recent fever/chills. Sent to ED, cxs sent, podiatry consulted, started on vanc/meropenem. Feeling a little better today. Full ROS performed and neg except as noted above. Some chronic cough, vision changes. - Medical History Past Medical History (Chronic Problems): Chronic Problems Diabetes (Chronic) HTN (hypertension) (Chronic) Super obesity (Chronic) Lymphedema of both lower extremities (Chronic) Dyslipidemia (Chronic) GERD (gastroesophageal reflux disease) (Chronic) H/O poor personal hygiene (Chronic) Type 2 diabetes mellitus with diabetic polyneuropathy (Chronic) Ulcer of right lower extremity with fat layer exposed (Chronic) Ulcer of left lower extremity with fat layer exposed (Chronic) Infection of left foot (Chronic) Allergies/Adverse Reactions: Allergies JOSHUA Inhibitors Allergy (Verified 08/31/14 16:29) Swelling cephalexin monohydrate [From Keflex] Allergy (Verified 08/31/14 16:29) Other Penicillins Allergy (Verified 08/31/14 16:29) Rash ibuprofen Adverse Reaction (Verified 08/31/14 16:29) Other naproxen Adverse Reaction (Verified 08/31/14 16:29) Upset Stomach Home Medications: Ambulatory Orders Medication Instructions Recorded Atenolol 50 mg PO DAILY 08/31/14 Calcitriol 0.5 mcg PO DAILY 08/31/14 Escitalopram Oxalate [Lexapro] 10 mg PO DAILY 08/31/14 Furosemide 40 mg PO BID 08/31/14 Pravastatin [Pravachol] 20 mg PO QHS 08/31/14 Acetaminophen [Tylenol Tablet] 650 mg PO Q6H PRN PRN #30 tablet 09/03/14 Aspirin [Aspirin, Baby] 81 mg PO DAILY@0800 10/23/17 Famotidine [Pepcid] 40 mg PO DAILY 10/23/17 Insulin NPH Human Isophane 90 unit SQ BID 10/23/17 [Novolin N] - Social History SMOKING STATUS:: Former smoker Vital Signs Temp Pulse Resp BP Pulse Ox 100.2 F H 102 H 18 142/45 H 94 10/24/17 03:00 10/24/17 03:00 10/24/17 03:00 10/24/17 03:00 10/24/17 03:00 Oxygen Flow Rate 2 Oxygen Delivery Method Nasal Cannula Weight: 181.1 kg Body Mass Index (BMI) 57.4 Laboratory Tests Past 24 Hrs 10/23/17 10/23/17 10/23/17 18:30 18:45 18:45 WBC RBC Hgb Hct MCV MCH MCHC RDW RDW Differential Plt Count MPV Immature Gran % (Auto) Neut % (Auto) Lymph % (Auto) [place] % (Auto) Eos % (Auto) Baso % (Auto) Absolute Neuts (auto) Absolute Lymphs (auto) Total Counted Differential Comment Diff Path Review ESR 113 H Sodium Potassium Chloride Carbon Dioxide Anion Gap BUN Creatinine Estim Creat Clear Calc Est GFR (MDRD) Af Amer Est GFR (MDRD) Non-Af BUN/Creatinine Ratio Glucose Hemoglobin A1c 8.4 H Calcium S.aureus Protein A PCR POSITIVE H MRSA (PCR) POSITIVE H 10/23/17 10/24/17 10/24/17 20:57 03:45 03:45 WBC 15.2 H RBC 3.46 L Hgb 10.2 L Hct 33.2 L MCV 96.0 H MCH 29.5 MCHC 30.7 L RDW 15.3 H RDW Differential 53.3 H Plt Count 220 MPV 10.0 Immature Gran % (Auto) 0.200 Neut % (Auto) 73.7 H Lymph % (Auto) 12.4 L [place] % (Auto) 13.5 H Eos % (Auto) 0.1 Baso % (Auto) 0.1 Absolute Neuts (auto) 11.2 H Absolute Lymphs (auto) 1.88 Total Counted Not Reportable Differential Comment SCANNED Diff Path Review May foll ESR Sodium 137 Potassium 4.2 Chloride 102 Carbon Dioxide 27.0 Anion Gap 8 BUN 16 Creatinine 0.97 Estim Creat Clear Calc 74.91 Est GFR (MDRD) Af Amer 100 Est GFR (MDRD) Non-Af 83 BUN/Creatinine Ratio 16.5 Glucose 55 L 97 Hemoglobin A1c Calcium 7.5 L S.aureus Protein A PCR MRSA (PCR) - Other Studies Radiology: [] reviewed Other Studies: [] Route of nutrition/ use of supplements: [] Nutritional Intake: [] IV Site: [] Mendez Catheter: [] - Physical Exam General: Alert, Oriented x3, Cooperative HEENT: Atraumatic, PERRLA, EOMI Neck: Supple, No Nodes Lungs: Clear to auscultation, Normal air movement Cardiovascular: Regular rate, Regular Rhythm Abdomen: Bowel Sounds Present, Soft, Non Tender, Non-Distended, Obese Extremities: Edema Skin: - - diffuse ulceration, necrosis, lichenification of BLE extending up to his pannus IV Site: Peripheral, without redness Neurological: Cranial nerves II-XII grossly intact - Assessment/Plan Antibiotics: [] Assessment/Plan: [] Active and Suspected Problems Diabetic foot infection (Acute) Failure to thrive (Acute) BLE DM infection with chronic lymphedema - wound pcr (+) MRSA. H/o rash with PCN and reports reaction to keflex that caused his lymphedema. Cont vanc/ meroepenem for now. CT showed no abscess. May not be able to tolerate or fit in MRI. Would consider bone scan. ESR at 113. Thank you, will follow, d/w Dr. Mojica.
[2017-10-24] MEDS: Aspirin 325 MG Tablet PO (10:38)
[2017-10-24] MEDS: Enoxaparin 40 MG/0.4 ML Syringe SC (10:38)
[2017-10-24] MEDS: Furosemide 40 MG Tablet PO ×2 (10:38→19:13)
[2017-10-24] MEDS: Escitalopram Oxalate 10 MG Tablet PO (10:38)
[2017-10-24] MEDS: Atenolol 50 MG Tablet PO (10:39)
[2017-10-24] MEDS: Calcitriol 0.25 MCG Capsule 0.5 MCG PO (10:39)
[2017-10-24] MEDS: 0.9% NaCl Peripheral Flush Adult/Peds IV ×2 (10:40→19:18)
[2017-10-24 12:40] LABS: Bedside Glucose 214 mg/dL (70-110)
[2017-10-24 12:41] VITALS: TEMP 37.6
--- NOTE | 2017-10-24 12:58 | CHAPLAIN ---
Type of Pastoral Visit _x__ Initial Visit ___ Follow-up Visit ___ On-call Visit ___ General Patient Visit ___ Spiritual Assessment ___ Family Conference ___ Bereavement ___ Rapid Response ___ Code Blue ___ Other (describe below) Pastoral Care Referral From _x__ Patient ___ Family ___ Nurse ___ Physician ___ Intensive Care Specialist ___ Head Of Product ___ Other (describe below) Sacrament/Intervention _x__ Active listening ___ Anointing ___ Yazidism ___ Bereavement ___ Communion ___ Kat exploration ___ ___ Life review _x__ Prayer ___ Reconciliation ___ Sacrament of Sick _x__ Supportive presence ___ Wedding ___ Other (describe below) Pastoral Comments patient reports his only support is a sister; other siblings have
--- NOTE | 2017-10-24 13:12 | CASEMGMT ---
See JASON HUFFMAN Assessment Plan. DC PLAN: SNF. -Intro role of CM to patient in room. Pt states he has had increasing difficulty caring for self @ home. Basically spends day in his recliner. No Home Health current. -Discussed discharge options, including SNF for wound care, PT/OT. Pt is agreeable. RN ARMIDA requested he consider which facilities he would like to go to. Pt states he liked [facility] (2013) when he was there, but will consider which facility he would like referral sent to. -SW referral placed for SNF placement on dc. Sara BSN RN ACM
--- NOTE | 2017-10-24 14:25 | NURSING ---
skin photo: left lower leg
--- NOTE | 2017-10-24 14:26 | NURSING ---
skin photo: right lower leg
[2017-10-24 16:30] VITALS: BP 157/67; PULSE 88; RESP 18; TEMP 37.2; O2SAT 96
[2017-10-24 17:00] VITALS: O2SAT 97
[2017-10-24 18:41] LABS: Bedside Glucose 294 mg/dL (70-110)
[2017-10-24 20:21] VITALS: BP 146/66; PULSE 95; RESP 18; TEMP 37.2; O2SAT 97
[2017-10-24] MEDS: Pravastatin 20 MG Tablet PO (21:28)
[2017-10-24 21:41] LABS: Bedside Glucose 315 mg/dL (70-110)
[2017-10-24] MEDS: Glucerna Shake 120 ML LIQUID PO (21:47)
[2017-10-25 02:00] VITALS: BP 154/59; PULSE 91; RESP 20; TEMP 36.4; O2SAT 95
[2017-10-25 02:56] LABS: Bedside Glucose 250 mg/dL (70-110)
[2017-10-25] MEDS: oxyCODONE 5 MG Tablet PO ×4 (05:51→21:13)
[2017-10-25 06:06] LABS: Bedside Glucose 228 mg/dL (70-110)
[2017-10-25 06:58] VITALS: O2SAT 95
[2017-10-25 07:38] LABS: Absolute Lymphocyte Count 2.23 X10^3/ul (0.83-4.51); Absolute Neutrophil Count 9.4 X10^3/uL (2.0-7.7); Basophil# 0.04 X10^3/uL; Basophil% 0.3 % (0-1); Eosinophil# 0.12 X10^3/uL; Eosinophils% 0.9 % (0-5); Hematocrit 34.8 % (40-54); Hemoglobin 10.4 g/dl (13.0-16.5); Lymphocyte # 2.23 X10^3/ul (4.0); Lymphocyte % 16.7 % (19-41); Mean Corp Hgb Conc 29.9 g/gl (32-36); Mean Corpuscular Hgb 29.5 pg (27.0-32.0); Mean Corpuscular Volume 98.9 fL (80-94); Mean Platelet Vol. 9.7 fl (6.2-12.0); Monocyte# 1.52 X10^3/uL; Monocyte% 11.4 % (0-10); Neutrophil # 9.37 X10^3/uL (2.7-7.7); Neutrophil % 70.3 % (47-70); Platelet Count 219 K/mm3 (150-450); RBC Distribution Width CV 15.2 % (11.6-14.6); RBC Distribution Width SD 53.3 fl (35.1-43.9); Red Blood Count 3.52 M/mm3 (4.6-6.2); White Blood Count 13.3 K/mm3 (4.4-11.0)
[2017-10-25 07:46] LABS: POSITIVE COUNT NO; POSITIVE DIFFERENTIAL YES; POSITIVE MORPHOLOGY NO
[2017-10-25 07:47] LABS: Differential Indicated SCAN CRITERIA MET
[2017-10-25 07:55] LABS: ALB/GLOB Ratio 0.4 RATIO (0.9-2.4); AST(SGOT) 90 U/L (15-37); Alanine Aminotransfer ALT/SGPT 47 U/L (12-78); Albumin, Serum 1.9 g/dL (3.4-5.0); Alkaline Phosphatase 166 U/L (45-117); Anion Gap 6 (5-15); BUN 16 mg/dL (7-18); BUN/Creat Ratio 16.9 RATIO (10-20); Calcium,Total 7.8 mg/dL (8.5-10.1); Chloride 100 mmol/L (98-107); Creatinine, Serum 0.95 mg/dL (0.70-1.30); EST Glomerular Filtration Rate 85 mL/min (>60); Est Glom Filt Rate - Afr Amer 102 mL/min (>60); Estimated Creatinine Clearance 76.49 ml/min; Globulin 5.1 g/dL (2.2-4.2); Glucose 220 mg/dL (70-110); Potassium 4.2 mmol/L (3.5-5.1); Sodium Level 137 mmol/L (136-145); Thyroid Stim Hormone (TSH) 1.17 uIU/mL (0.358-3.74)
[2017-10-25 08:00] VITALS: BP 147/72; PULSE 93; RESP 18; TEMP 36.7; O2SAT 100
[2017-10-25 08:16] LABS: Pathologist Review Reviewed
--- NOTE | 2017-10-25 08:35 | PCM.PN.HOSP ---
Patient Problems: Active and Suspected Problems Diabetic foot infection (Acute) Failure to thrive (Acute) Subjective: Planes of pain in his shoulders. Patient stated that he fell onto his right shoulder but states his left shoulder hurts. Also complains of pain in his knee on the left. Vitals/I&O's: Vital Signs Temp Pulse Resp BP Pulse Ox 36.4 C L 91 20 H 154/59 H 95 10/25/17 02:00 10/25/17 02:00 10/25/17 02:00 10/25/17 02:00 10/25/17 06:58 Oxygen Flow Rate 2 Oxygen Delivery Method Nasal Cannula Weight: 180.8 kg Body Mass Index (BMI) 57.4 Intake and Output for Last 24 Hours 10/23/17 10/24/17 10/25/17 23:59 23:59 23:59 Intake Total 2926 / 2926 847 / 847 Output Total 2450 / 2450 1550 / 1550 Balance 476 / 476 -703 / -703 General: Alert, Cooperative, No apparent distress HEENT: Atraumatic, Normocephalic Neck: No Nodes, Thyroid Normal Size and Texture Lungs: Clear to auscultation, Normal air movement, No rhonchi, No wheeze Cardiovascular: Regular rate, Regular Rhythm, Normal S1, Normal S2, No murmurs Abdomen: Bowel Sounds Present, Soft, Non Tender, Non-Distended, No Hepato-splenomegaly Extremities: No edema, No Calf Tenderness Psych/Mental Status: Normal Affect, Appropriate Microbiology Past 72 Hours 10/23/17 18:30 Tissue Ulcer - Leg Gram Stain - Final 10/23/17 18:30 Tissue Ulcer - Leg Wound Culture - 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 Gram negative ken Laboratory Results 10/24/17 03:45: Diff Path Review Reviewed 10/24/17 09:12: POC Glucose 104 10/24/17 12:27: POC Glucose 214 H 10/24/17 18:36: POC Glucose 294 H 10/24/17 21:24: POC Glucose 315 H 10/25/17 02:43: POC Glucose 250 H 10/25/17 05:59: POC Glucose 228 H 10/25/17 07:20: WBC 13.3 H, RBC 3.52 L, Hgb 10.4 L, Hct 34.8 L, MCV 98.9 H, MCH 29.5, MCHC 29.9 L, RDW 15.2 H, RDW Differential 53.3 H, Plt Count 219, MPV 9.7, Immature Gran % (Auto) 0.400, Neut % (Auto) 70.3 H, Lymph % (Auto) 16.7 L, [place] % (Auto) 11.4 H, Eos % (Auto) 0.9, Baso % (Auto) 0.3, Absolute Neuts (auto) 9.4 H, Absolute Lymphs (auto) 2.23, Total Counted Not Reportable, Diff Path Review January10/25/17 07:20: Sodium 137, Potassium 4.2, Chloride 100, Carbon Dioxide 31.0, Anion Gap 6, BUN 16, Creatinine 0.95, Estim Creat Clear Calc 76.49, Est GFR (MDRD) Af Amer 102, Est GFR (MDRD) Non-Af 85, BUN/Creatinine Ratio 16.9, Glucose 220 H, Calcium 7.8 L, Total Bilirubin 0.40, AST 90 H, ALT 47, Alkaline Phosphatase 166 H, Total Protein 7.0, Albumin 1.9 L, Globulin 5.1 H, Albumin/Globulin Ratio 0.4 L, TSH 1.17 Current Medications Acetaminophen (Tylenol) 650 mg PO Q6H PRN PRN PRN Reason: Mild Pain (scale 0-3)/T>100.7 Aspirin (Aspirin) 325 mg PO DAILY@0800 [facility] Last Admin: 10/24/17 10:38 Dose: 325 mg Atenolol (Tenormin (Beta Patrick)) 50 mg PO DAILY [facility] Last Admin: 10/24/17 10:39 Dose: 50 mg Calcitriol (Rocaltrol) 0.5 mcg PO DAILY [facility] Last Admin: 10/24/17 10:39 Dose: 0.5 mcg Dextrose (D50w Syringe) 0 gm IV X1 PRN; Protocol PRN Reason: Hypoglycemia Last Admin: 10/23/17 21:56 Dose: 25 gm Enoxaparin Sodium (Lovenox) 40 mg SC DAILY@1000 [facility] Last Admin: 10/24/17 10:38 Dose: 40 mg Escitalopram Oxalate (Lexapro) 10 mg PO DAILY [facility] Last Admin: 10/24/17 10:38 Dose: 10 mg Furosemide (Lasix) 40 mg PO BIDLX [facility] Last Admin: 10/24/17 19:13 Dose: 40 mg Glucagon () 1 mg IM .X1 PRN PRN Reason: Hypoglycemia Sodium Chloride () 250 mls @ 15 mls/hr IV .[id number] PRN PRN Reason: SALINE FLUSH Sodium Chloride () 250 mls @ 15 mls/hr IV .[id number] PRN PRN Reason: SALINE FLUSH Meropenem 500 mg/ Sodium (Chloride) 60 mls @ 100 mls/hr IV Q6 [facility] Last Admin: 10/25/17 05:05 Dose: 100 mls/hr Vancomycin HCl (Vancomycin) 1,000 mg in 200 mls @ 200 mls/hr IV Q12H [facility] Last Admin: 10/24/17 21:27 Dose: 200 mls/hr Insulin Aspart (Novolog Flexpen ([facility])) 0 units SC ACHS & 3AM KARLEE PRN Reason: Protocol Last Admin: 10/25/17 06:01 Dose: 2 u Insulin Detemir (Levemir ([facility])) 45 units SC DAILY [facility] Last Admin: 10/24/17 12:29 Dose: 45 u Magnesium Hydroxide (Milk Of Magnesia) 30 ml PO DAILY PRN PRN PRN Reason: Constipation Nutritional Formula (Lactose Free) (Glucerna Shake) 120 ml PO 4X/DAY [facility] Last Admin: 10/24/17 21:47 Dose: 120 ml Ondansetron HCl (Zofran) 4 mg IV Q8H PRN PRN PRN Reason: Nausea Oxycodone HCl (Oxyir) 5 mg PO Q4H PRN PRN PRN Reason: Moderate Pain (pain scale 4-5) Last Admin: 10/25/17 05:51 Dose: 5 mg Pravastatin Sodium (Pravachol) 20 mg PO QHS [facility] Last Admin: 10/24/17 21:28 Dose: 20 mg Sodium Chloride () 5 - 30 ml IV UD PRN PRN Reason: SALINE FLUSH Last Admin: 10/24/17 19:18 Dose: 10 ml Assessment/Plan Active and Suspected Problems Diabetic foot infection (Acute) Failure to thrive (Acute) 67-year-old white male presents after falling at home and unable to get up. Patient being admitted for diabetic foot wounds and infection. Also for rehabilitation purposes with physical and Occupational Therapy. 1. Diabetic foot wounds. Patient has very advanced lymphedema, lichenification of his feet. They are profoundly malodorous. Concern is for an underlying infection. Patient stated that he would not be able to tolerate an MRI given claustrophobia but told him that he may not a good fit given his body habitus into a MRI scanner. Will ask for podiatry as well as infectious disease to assist. Check wound cultures. We will have wound care evaluate him as well. Preliminary serology positive for MRSA staph aureus. Continue with vancomycin and meropenem. Tib-fib x-rays show degenerative changes with soft tissue swelling. CAT scan showed severe diffuse skin thickening and subcutaneous edema. No evidence of any drainable abscess. Foot x-ray showed marked soft tissue swelling without definite underlying bone or joint abnormality. Present culture showing gram-negative rods. 2. Failure to thrive Quite frankly I am surprised the patient was able to do as well as he did on his own with his legs being what they are and his other physical limitations. Physical and Occupational Therapy evaluate and treat Explained to patient that he is likely going to require usp facility upon discharge. 3. Diabetes mellitus type 2 Continue with patient's NPH but will also add sliding scale insulin. A1c 8.4. Is unclear as to where the patient's blood sugars were going as patient was on 90 units of NPH at home twice daily and patient was started on Levemir 45 units daily yesterday. Blood sugars have been in the 200s. Going to split the dose of the Levemir and put him on 30 units twice daily and monitor. 4. Lymphedema This is a chronic process. Though looking back in the patient's weights, appears to be pretty stable from 2013, last time he was at this hospital. We will check an echocardiogram. I would be concerned the patient has underlying pulmonary hypertension possibly group 3 due to obstructive sleep apnea. If so, would recommend patient having an outpatient polysomnogram to further evaluate that. Check liver function panel. 5. Morbid obesity Complicating care. Weight loss advised 6. DVT prophylaxis with low molecular weight heparin. 7. Shoulder pain and knee pain Difficult to do range of motion with the patient's but I will check some x-rays on her make sure is no fracture or dislocation. Code Visit Inpatient E&M: 19816 Subs Hosp L2
--- NOTE | 2017-10-25 08:39 | PN_ITS ---
Patient Problems: Active and Suspected Problems Diabetic foot infection (Acute) Failure to thrive (Acute) Subjective: Planes of pain in his shoulders. Patient stated that he fell onto his right shoulder but states his left shoulder hurts. Also complains of pain in his knee on the left. Vitals/I&O's: Vital Signs Temp Pulse Resp BP Pulse Ox 36.4 C L 91 20 H 154/59 H 95 10/25/17 02:00 10/25/17 02:00 10/25/17 02:00 10/25/17 02:00 10/25/17 06:58 Oxygen Flow Rate 2 Oxygen Delivery Method Nasal Cannula Weight: 180.8 kg Body Mass Index (BMI) 57.4 Intake and Output for Last 24 Hours 10/23/17 10/24/17 10/25/17 23:59 23:59 23:59 Intake Total 2926 / 2926 847 / 847 Output Total 2450 / 2450 1550 / 1550 Balance 476 / 476 -703 / -703 General: Alert, Cooperative, No apparent distress HEENT: Atraumatic, Normocephalic Neck: No Nodes, Thyroid Normal Size and Texture Lungs: Clear to auscultation, Normal air movement, No rhonchi, No wheeze Cardiovascular: Regular rate, Regular Rhythm, Normal S1, Normal S2, No murmurs Abdomen: Bowel Sounds Present, Soft, Non Tender, Non-Distended, No Hepato- splenomegaly Extremities: No edema, No Calf Tenderness Psych/Mental Status: Normal Affect, Appropriate Microbiology Past 72 Hours 10/23/17 18:30 Tissue Ulcer - Leg Gram Stain - Final 10/23/17 18:30 Tissue Ulcer - Leg Wound Culture - Preliminary GNR lactose bill of lading clerk Gram negative ken Laboratory Results 10/24/17 03:45: Diff Path Review Reviewed 10/24/17 09:12: POC Glucose 104 10/24/17 12:27: POC Glucose 214 H 10/24/17 18:36: POC Glucose 294 H 10/24/17 21:24: POC Glucose 315 H 10/25/17 02:43: POC Glucose 250 H 10/25/17 05:59: POC Glucose 228 H 10/25/17 07:20: WBC 13.3 H, RBC 3.52 L, Hgb 10.4 L, Hct 34.8 L, MCV 98.9 H, MCH 29.5, MCHC 29.9 L, RDW 15.2 H, RDW Differential 53.3 H, Plt Count 219, MPV 9.7, Immature Gran % (Auto) 0.400, Neut % (Auto) 70.3 H, Lymph % (Auto) 16.7 L, [place] % (Auto) 11.4 H, Eos % (Auto) 0.9, Baso % (Auto) 0.3, Absolute Neuts (auto) 9.4 H, Absolute Lymphs (auto) 2.23, Total Counted Not Reportable, Diff Path Review January10/25/17 07:20: Sodium 137, Potassium 4.2, Chloride 100, Carbon Dioxide 31.0, Anion Gap 6, BUN 16, Creatinine 0.95, Estim Creat Clear Calc 76.49, Est GFR ( MDRD) Af Amer 102, Est GFR (MDRD) Non-Af 85, BUN/Creatinine Ratio 16.9, Glucose 220 H, Calcium 7.8 L, Total Bilirubin 0.40, AST 90 H, ALT 47, Alkaline Phosphatase 166 H, Total Protein 7.0, Albumin 1.9 L, Globulin 5.1 H, Albumin/ Globulin Ratio 0.4 L, TSH 1.17 Current Medications Acetaminophen (Tylenol) 650 mg PO Q6H PRN PRN PRN Reason: Mild Pain (scale 0-3)/T>100.7 Aspirin (Aspirin) 325 mg PO DAILY@0800 [facility] Last Admin: 10/24/17 10:38 Dose: 325 mg Atenolol (Tenormin (Beta Patrick)) 50 mg PO DAILY [facility] Last Admin: 10/24/17 10:39 Dose: 50 mg Calcitriol (Rocaltrol) 0.5 mcg PO DAILY [facility] Last Admin: 10/24/17 10:39 Dose: 0.5 mcg Dextrose (D50w Syringe) 0 gm IV X1 PRN; Protocol PRN Reason: Hypoglycemia Last Admin: 10/23/17 21:56 Dose: 25 gm Enoxaparin Sodium (Lovenox) 40 mg SC DAILY@1000 [facility] Last Admin: 10/24/17 10:38 Dose: 40 mg Escitalopram Oxalate (Lexapro) 10 mg PO DAILY [facility] Last Admin: 10/24/17 10:38 Dose: 10 mg Furosemide (Lasix) 40 mg PO BIDLX [facility] Last Admin: 10/24/17 19:13 Dose: 40 mg Glucagon () 1 mg IM .X1 PRN PRN Reason: Hypoglycemia Sodium Chloride () 250 mls @ 15 mls/hr IV .[id number] PRN PRN Reason: SALINE FLUSH Sodium Chloride () 250 mls @ 15 mls/hr IV .[id number] PRN PRN Reason: SALINE FLUSH Meropenem 500 mg/ Sodium (Chloride) 60 mls @ 100 mls/hr IV Q6 [facility] Last Admin: 10/25/17 05:05 Dose: 100 mls/hr Vancomycin HCl (Vancomycin) 1,000 mg in 200 mls @ 200 mls/hr IV Q12H [facility] Last Admin: 10/24/17 21:27 Dose: 200 mls/hr Insulin Aspart (Novolog Flexpen ([facility])) 0 units SC ACHS & 3AM KARLEE PRN Reason: Protocol Last Admin: 10/25/17 06:01 Dose: 2 u Insulin Detemir (Levemir ([facility])) 45 units SC DAILY [facility] Last Admin: 10/24/17 12:29 Dose: 45 u Magnesium Hydroxide (Milk Of Magnesia) 30 ml PO DAILY PRN PRN PRN Reason: Constipation Nutritional Formula (Lactose Free) (Glucerna Shake) 120 ml PO 4X/DAY [facility] Last Admin: 10/24/17 21:47 Dose: 120 ml Ondansetron HCl (Zofran) 4 mg IV Q8H PRN PRN PRN Reason: Nausea Oxycodone HCl (Oxyir) 5 mg PO Q4H PRN PRN PRN Reason: Moderate Pain (pain scale 4-5) Last Admin: 10/25/17 05:51 Dose: 5 mg Pravastatin Sodium (Pravachol) 20 mg PO QHS [facility] Last Admin: 10/24/17 21:28 Dose: 20 mg Sodium Chloride () 5 - 30 ml IV UD PRN PRN Reason: SALINE FLUSH Last Admin: 10/24/17 19:18 Dose: 10 ml Assessment/Plan Active and Suspected Problems Diabetic foot infection (Acute) Failure to thrive (Acute) 67-year-old white male presents after falling at home and unable to get up. Patient being admitted for diabetic foot wounds and infection. Also for rehabilitation purposes with physical and Occupational Therapy. 1. Diabetic foot wounds. Patient has very advanced lymphedema, lichenification of his feet. They are profoundly malodorous. Concern is for an underlying infection. Patient stated that he would not be able to tolerate an MRI given claustrophobia but told him that he may not a good fit given his body habitus into a MRI scanner. Will ask for podiatry as well as infectious disease to assist. Check wound cultures. We will have wound care evaluate him as well. Preliminary serology positive for MRSA staph aureus. Continue with vancomycin and meropenem. Tib-fib x-rays show degenerative changes with soft tissue swelling. CAT scan showed severe diffuse skin thickening and subcutaneous edema. No evidence of any drainable abscess. Foot x-ray showed marked soft tissue swelling without definite underlying bone or joint abnormality. Present culture showing gram-negative rods. 2. Failure to thrive Quite frankly I am surprised the patient was able to do as well as he did on his own with his legs being what they are and his other physical limitations. Physical and Occupational Therapy evaluate and treat Explained to patient that he is likely going to require custodial facility upon discharge. 3. Diabetes mellitus type 2 Continue with patient's NPH but will also add sliding scale insulin. A1c 8.4. Is unclear as to where the patient's blood sugars were going as patient was on 90 units of NPH at home twice daily and patient was started on Levemir 45 units daily yesterday. Blood sugars have been in the 200s. Going to split the dose of the Levemir and put him on 30 units twice daily and monitor. 4. Lymphedema This is a chronic process. Though looking back in the patient's weights, appears to be pretty stable from 2013, last time he was at this hospital. We will check an echocardiogram. I would be concerned the patient has underlying pulmonary hypertension possibly group 3 due to obstructive sleep apnea. If so, would recommend patient having an outpatient polysomnogram to further evaluate that. Check liver function panel. 5. Morbid obesity Complicating care. Weight loss advised 6. DVT prophylaxis with low molecular weight heparin. 7. Shoulder pain and knee pain Difficult to do range of motion with the patient's but I will check some x-rays on her make sure is no fracture or dislocation. Code Visit Inpatient E&M: 78790 Subs Hosp L2
[2017-10-25] MEDS: Aspirin 325 MG Tablet PO (09:59)
[2017-10-25] MEDS: Glucerna Shake 120 ML LIQUID PO ×3 (09:59→21:06)
[2017-10-25] MEDS: Calcitriol 0.25 MCG Capsule 0.5 MCG PO (10:00)
[2017-10-25] MEDS: Furosemide 40 MG Tablet PO ×2 (10:00→17:25)
[2017-10-25] MEDS: Enoxaparin 40 MG/0.4 ML Syringe SC (10:00)
[2017-10-25] MEDS: Escitalopram Oxalate 10 MG Tablet PO (10:00)
--- NOTE | 2017-10-25 10:08 | CASEMGMT ---
Addendum entered by Anastasia Pope 10/25/17 12:48: SW spoke w/Candi at [facility], they can take pt. They will likely be ordering bariatric equipment for pt, and would be able to take pt on Saturday. SW faxed the sliding scale to [facility]i for pt's insulin per her request. SW on MS3 updated. FINA Rodriguez, MERCURY CELL CLEANER Original Note: Addendum entered by Anastasia Pope 10/25/17 11:49: SW called [facility], message left. SW called [facility], they cannot take pt as he is bariatric. SW will continue to follow, will let SW on MS3 know the potential discharge plan. FINA Rodriguez, MERCURY CELL CLEANER Original Note: SW met w/pt in room in regard to discharge plan. Pt agreeable to have referral sent to [facility] and [facility]. ROSLYN faxed referral initially to [facility], will continue to follow. FINA Rodriguez, MERCURY CELL CLEANER
[2017-10-25] MEDS: Atenolol 50 MG Tablet PO (10:10)
[2017-10-25 11:50] LABS: Bedside Glucose 349 mg/dL (70-110)
[2017-10-25] MEDS: 0.9% NaCl IVPB Med Flush (250 mL) 15 ML IV (12:00)
--- NOTE | 2017-10-25 12:51 | NURSING ---
wound photo: right dorsal foot
--- NOTE | 2017-10-25 12:51 | NURSING ---
wound photo: right lateral leg/ankle
--- NOTE | 2017-10-25 12:51 | NURSING ---
wound photo: left dorsal foot
--- NOTE | 2017-10-25 12:52 | NURSING ---
wound photo: left lateral lower leg
--- NOTE | 2017-10-25 12:52 | NURSING ---
wound photo: left lateral heel
[2017-10-25 13:09] VITALS: BP 113/56; PULSE 84; RESP 20; TEMP 36.9; O2SAT 95
--- NOTE | 2017-10-25 13:44 | CASEMGMT ---
Social Work Note Updated by FINA Chan, that the pt has been accepted at [facility] ([facility]), but the facility will need to order bariatric equipment and would be able to accept on Saturday. Pt made aware and denies additional questions at this time. SW to continue to follow and assist with discharge planning. Plan: [facility] for rehabilitation. BERNA MacedoW
[2017-10-25 15:30] LABS: Pathologist Review Reviewed
--- NOTE | 2017-10-25 16:18 | PN.ID_ITS ---
Patient Problems: Active and Suspected Problems Diabetic foot infection (Acute) Failure to thrive (Acute) Subjective: Feeling better, legs less sore, no fever, no n/v/d. - Physical Exam General: Alert, Cooperative, No apparent distress Lungs: Clear to auscultation, Normal air movement Cardiovascular: Regular rate, Regular Rhythm Abdomen: Soft, Non Tender, Non-Distended, Obese Extremities: Edema Skin: Ulcer/ Wound - BLE ulceration/thickening. Legs less red and sore. Vital Signs Temp Pulse Resp BP Pulse Ox 98.4 F 84 20 H 113/56 L 95 10/25/17 13:09 10/25/17 13:09 10/25/17 13:09 10/25/17 13:09 10/25/17 13:09 Oxygen Flow Rate 2 Oxygen Delivery Method Nasal Cannula Weight: 180.8 kg Body Mass Index (BMI) 57.4 Intake and Output for Last 24 Hours 10/23/17 10/24/17 10/25/17 23:59 23:59 23:59 Intake Total 2926 / 2926 847 / 847 Output Total 2450 / 2450 1550 / 1550 Balance 476 / 476 -703 / -703 Microbiology Past 72 Hours 10/23/17 18:30 Gram Stain - Final Tissue Ulcer - Leg Wound Culture - Preliminary GNR lactose cdl service technician Gram negative ken Anaerobic Culture - Preliminary Checking for anaerobes, further studies to follow. Laboratory Tests Past 24 Hrs 10/24/17 10/25/17 10/25/17 03:45 07:20 07:20 WBC 13.3 H RBC 3.52 L Hgb 10.4 L Hct 34.8 L MCV 98.9 H MCH 29.5 MCHC 29.9 L RDW 15.2 H RDW Differential 53.3 H Plt Count 219 MPV 9.7 Immature Gran % (Auto) 0.400 Neut % (Auto) 70.3 H Lymph % (Auto) 16.7 L [place] % (Auto) 11.4 H Eos % (Auto) 0.9 Baso % (Auto) 0.3 Absolute Neuts (auto) 9.4 H Absolute Lymphs (auto) 2.23 Total Counted Not Reportable Diff Path Review Reviewed Reviewed Sodium 137 Potassium 4.2 Chloride 100 Carbon Dioxide 31.0 Anion Gap 6 BUN 16 Creatinine 0.95 Estim Creat Clear Calc 76.49 Est GFR (MDRD) Af Amer 102 Est GFR (MDRD) Non-Af 85 BUN/Creatinine Ratio 16.9 Glucose 220 H Calcium 7.8 L Total Bilirubin 0.40 AST 90 H ALT 47 Alkaline Phosphatase 166 H Total Protein 7.0 Albumin 1.9 L Globulin 5.1 H Albumin/Globulin Ratio 0.4 L TSH 1.17 POC Glucose 10/25/17 10/25/17 10/25/17 11:39 05:59 02:43 POC Glucose 349 H 228 H 250 H 10/24/17 10/24/17 21:24 18:36 POC Glucose 315 H 294 H Route of nutrition/ use of supplements: [] Nutritional Intake: [] IV Site: [] Mendez Catheter: [] - Assessment/Plan Antibiotics: [] Assessment/Plan: [] Active and Suspected Problems Diabetic foot infection (Acute) Failure to thrive (Acute) BLE DM infection with chronic lymphedema - wound pcr (+) MRSA. H/o rash with PCN and reports reaction to keflex that caused his lymphedema. Cont vanc/ meropenem for now. CT showed no abscess. Would consider bone scan if possible. ESR at 113. Legs look better. Wound cx with GNR. Will follow.
[2017-10-25 17:11] LABS: Bedside Glucose 322 mg/dL (70-110)
[2017-10-25] MEDS: 0.9% NaCl Peripheral Flush Adult/Peds IV (17:27)
--- NOTE | 2017-10-25 18:06 | PCM.PROGNOTE ---
Patient Problems: Active and Suspected Problems Diabetic foot infection (Acute) Failure to thrive (Acute) Subjective: Patient seen today. He has no new complaints. He relates feet and legs feeling better. - Physical Exam General: Alert, Oriented x3, Cooperative, No apparent distress Extremities: Capillary Refill Less than 3 Seconds, - - Dressings clean, dry and intact bilateral lower extremity. Reviewed wound photos from today and there is noted to be continued clinical improvement to lower extremities with much healther appearance to feet and legs, along with to wound sites - less drainage, less edema, and less erythema noted. Vital Signs Temp Pulse Resp BP Pulse Ox 98.4 F 84 20 H 113/56 L 95 10/25/17 13:09 10/25/17 13:09 10/25/17 13:09 10/25/17 13:09 10/25/17 13:09 Oxygen Flow Rate 2 Oxygen Delivery Method Nasal Cannula Weight: 180.8 kg Body Mass Index (BMI) 57.4 Intake and Output for Last 24 Hours 10/23/17 10/24/17 10/25/17 23:59 23:59 23:59 Intake Total 2926 / 2926 1489 / 1489 Output Total 2450 / 2450 3150 / 3150 Balance 476 / 476 -1661 / -1661 Microbiology Past 72 Hours 10/23/17 18:30 Gram Stain - Final Tissue Ulcer - Leg Wound Culture - Preliminary GNR lactose fire lookout Gram negative ken Anaerobic Culture - Preliminary Checking for anaerobes, further studies to follow. Laboratory Tests Past 24 Hrs 10/24/17 10/25/17 10/25/17 03:45 07:20 07:20 WBC 13.3 H RBC 3.52 L Hgb 10.4 L Hct 34.8 L MCV 98.9 H MCH 29.5 MCHC 29.9 L RDW 15.2 H RDW Differential 53.3 H Plt Count 219 MPV 9.7 Immature Gran % (Auto) 0.400 Neut % (Auto) 70.3 H Lymph % (Auto) 16.7 L [place] % (Auto) 11.4 H Eos % (Auto) 0.9 Baso % (Auto) 0.3 Absolute Neuts (auto) 9.4 H Absolute Lymphs (auto) 2.23 Total Counted Not Reportable Diff Path Review Reviewed Reviewed Sodium 137 Potassium 4.2 Chloride 100 Carbon Dioxide 31.0 Anion Gap 6 BUN 16 Creatinine 0.95 Estim Creat Clear Calc 76.49 Est GFR (MDRD) Af Amer 102 Est GFR (MDRD) Non-Af 85 BUN/Creatinine Ratio 16.9 Glucose 220 H Calcium 7.8 L Total Bilirubin 0.40 AST 90 H ALT 47 Alkaline Phosphatase 166 H Total Protein 7.0 Albumin 1.9 L Globulin 5.1 H Albumin/Globulin Ratio 0.4 L TSH 1.17 POC Glucose 10/25/17 10/25/17 10/25/17 17:01 11:39 05:59 POC Glucose 322 H 349 H 228 H 10/25/17 10/24/17 10/24/17 02:43 21:24 18:36 POC Glucose 250 H 315 H 294 H Assessment/Plan Active and Suspected Problems Diabetic foot infection (Acute) Failure to thrive (Acute) Left leg ulcers with fat layer exposed, infected Left lower extremity pain Right leg ulcer with fat layer exposed, not infected Diabetes with neuropathy Superobesity Bilateral chronic lower extremity lymphedema and edema Other comorbidities being worked up Diagnostic data was reviewed, WBC elevated to 13.4 (improved). He is afebrile at this time and a ESR of 113. His left foot and left leg x-ray are negative for soft tissue emphysema or foreign body, acute fracture dislocation, or obvious Charcot changes. His left lower extremity CT scan was reviewed without soft tissue emphysema or foreign fluid abscess. There is also no acute fractures or dislocations or Charcot or osseous destruction sites appreciated. Wound culture results reviewed, finals pending. Patient is on antibiotic therapy per Infectious Disease, and input is appreciated. To continue on IV antibiotics at this time I discussed with wound nurse today. His legs and feet are improving. Continue with local wound care and dressing changes. Continue with offloading heels at all times. DVT prophylaxis, pain management, and medical management per primary team is appreciated. Patient to be discharged to [facility] ([facility]) possibly saturday. Will continue to follow.
--- NOTE | 2017-10-25 18:14 | PN_ITS ---
Patient Problems: Active and Suspected Problems Diabetic foot infection (Acute) Failure to thrive (Acute) Subjective: Patient seen today. He has no new complaints. He relates feet and legs feeling better. - Physical Exam General: Alert, Oriented x3, Cooperative, No apparent distress Extremities: Capillary Refill Less than 3 Seconds, - - Dressings clean, dry and intact bilateral lower extremity. Reviewed wound photos from today and there is noted to be continued clinical improvement to lower extremities with much healther appearance to feet and legs, along with to wound sites - less drainage , less edema, and less erythema noted. Vital Signs Temp Pulse Resp BP Pulse Ox 98.4 F 84 20 H 113/56 L 95 10/25/17 13:09 10/25/17 13:09 10/25/17 13:09 10/25/17 13:09 10/25/17 13:09 Oxygen Flow Rate 2 Oxygen Delivery Method Nasal Cannula Weight: 180.8 kg Body Mass Index (BMI) 57.4 Intake and Output for Last 24 Hours 10/23/17 10/24/17 10/25/17 23:59 23:59 23:59 Intake Total 2926 / 2926 1489 / 1489 Output Total 2450 / 2450 3150 / 3150 Balance 476 / 476 -1661 / -1661 Microbiology Past 72 Hours 10/23/17 18:30 Gram Stain - Final Tissue Ulcer - Leg Wound Culture - Preliminary GNR lactose director of global talent Gram negative ken Anaerobic Culture - Preliminary Checking for anaerobes, further studies to follow. Laboratory Tests Past 24 Hrs 10/24/17 10/25/17 10/25/17 03:45 07:20 07:20 WBC 13.3 H RBC 3.52 L Hgb 10.4 L Hct 34.8 L MCV 98.9 H MCH 29.5 MCHC 29.9 L RDW 15.2 H RDW Differential 53.3 H Plt Count 219 MPV 9.7 Immature Gran % (Auto) 0.400 Neut % (Auto) 70.3 H Lymph % (Auto) 16.7 L [place] % (Auto) 11.4 H Eos % (Auto) 0.9 Baso % (Auto) 0.3 Absolute Neuts (auto) 9.4 H Absolute Lymphs (auto) 2.23 Total Counted Not Reportable Diff Path Review Reviewed Reviewed Sodium 137 Potassium 4.2 Chloride 100 Carbon Dioxide 31.0 Anion Gap 6 BUN 16 Creatinine 0.95 Estim Creat Clear Calc 76.49 Est GFR (MDRD) Af Amer 102 Est GFR (MDRD) Non-Af 85 BUN/Creatinine Ratio 16.9 Glucose 220 H Calcium 7.8 L Total Bilirubin 0.40 AST 90 H ALT 47 Alkaline Phosphatase 166 H Total Protein 7.0 Albumin 1.9 L Globulin 5.1 H Albumin/Globulin Ratio 0.4 L TSH 1.17 POC Glucose 10/25/17 10/25/17 10/25/17 17:01 11:39 05:59 POC Glucose 322 H 349 H 228 H 10/25/17 10/24/17 10/24/17 02:43 21:24 18:36 POC Glucose 250 H 315 H 294 H Assessment/Plan Active and Suspected Problems Diabetic foot infection (Acute) Failure to thrive (Acute) Left leg ulcers with fat layer exposed, infected Left lower extremity pain Right leg ulcer with fat layer exposed, not infected Diabetes with neuropathy Superobesity Bilateral chronic lower extremity lymphedema and edema Other comorbidities being worked up Diagnostic data was reviewed, WBC elevated to 13.4 (improved). He is afebrile at this time and a ESR of 113. His left foot and left leg x-ray are negative for soft tissue emphysema or foreign body, acute fracture dislocation, or obvious Charcot changes. His left lower extremity CT scan was reviewed without soft tissue emphysema or foreign fluid abscess. There is also no acute fractures or dislocations or Charcot or osseous destruction sites appreciated. Wound culture results reviewed, finals pending. Patient is on antibiotic therapy per Infectious Disease, and input is appreciated. To continue on IV antibiotics at this time I discussed with wound nurse today. His legs and feet are improving. Continue with local wound care and dressing changes. Continue with offloading heels at all times. DVT prophylaxis, pain management, and medical management per primary team is appreciated. Patient to be discharged to [facility] possibly saturday. Will continue to follow.
[2017-10-25 19:30] VITALS: BP 150/74; PULSE 93; RESP 18; TEMP 37.1; O2SAT 94
[2017-10-25] MEDS: Pravastatin 20 MG Tablet PO (21:01)
[2017-10-25 21:16] LABS: Bedside Glucose 314 mg/dL (70-110)
[2017-10-26] VITALS (21 sets, daily range): BP systolic 118–165; BP diastolic 58–83; PULSE 88–145; RESP 18–26; TEMP 36.8–37.4; O2SAT 92–96
[2017-10-26 02:51] LABS: Bedside Glucose 281 mg/dL (70-110)
[2017-10-26] MEDS: oxyCODONE 5 MG Tablet PO ×2 (05:02→17:57)
[2017-10-26] MEDS: Magnesium Hydroxide 30 ML UDC PO (05:03)
[2017-10-26 07:38] LABS: Absolute Lymphocyte Count 2.07 X10^3/ul (0.83-4.51); Absolute Neutrophil Count 9.2 X10^3/uL (2.0-7.7); Basophil# 0.04 X10^3/uL; Basophil% 0.3 % (0-1); Eosinophil# 0.13 X10^3/uL; Hematocrit 35.5 % (40-54); Hemoglobin 10.6 g/dl (13.0-16.5); Lymphocyte # 2.07 X10^3/ul (4.0); Mean Corp Hgb Conc 29.9 g/gl (32-36); Mean Corpuscular Hgb 29.8 pg (27.0-32.0); Mean Corpuscular Volume 99.7 fL (80-94); Monocyte# 1.48 X10^3/uL; Monocyte% 11.4 % (0-10); Neutrophil # 9.16 X10^3/uL (2.7-7.7); Neutrophil % 70.9 % (47-70); Platelet Count 237 K/mm3 (150-450); RBC Distribution Width CV 14.9 % (11.6-14.6); RBC Distribution Width SD 52.5 fl (35.1-43.9); Red Blood Count 3.56 M/mm3 (4.6-6.2); White Blood Count 12.9 K/mm3 (4.4-11.0)
[2017-10-26 07:52] LABS: POSITIVE COUNT NO; POSITIVE DIFFERENTIAL NO; POSITIVE MORPHOLOGY NO
[2017-10-26 07:57] LABS: Anion Gap 5 (5-15); BUN 17 mg/dL (7-18); Calcium,Total 8.3 mg/dL (8.5-10.1); Chloride 95 mmol/L (98-107); EST Glomerular Filtration Rate 90 mL/min (>60); Est Glom Filt Rate - Afr Amer 109 mL/min (>60); Estimated Creatinine Clearance 80.74 ml/min; Glucose 213 mg/dL (70-110); Sodium Level 135 mmol/L (136-145)
[2017-10-26 09:07] LABS: Vancomycin, Trough Level 12.3 ug/mL (5.0-15.0)
[2017-10-26 09:12] LABS: Bedside Glucose 219 mg/dL (70-110)
[2017-10-26] MEDS: Furosemide 40 MG Tablet PO ×2 (09:22→17:14)
[2017-10-26] MEDS: Escitalopram Oxalate 10 MG Tablet PO (09:23)
[2017-10-26] MEDS: Atenolol 50 MG Tablet PO (09:23)
[2017-10-26] MEDS: Calcitriol 0.25 MCG Capsule 0.5 MCG PO (09:23)
[2017-10-26] MEDS: Aspirin 325 MG Tablet PO (09:23)
[2017-10-26] MEDS: Enoxaparin 40 MG/0.4 ML Syringe SC (09:24)
[2017-10-26] MEDS: Glucerna Shake 120 ML LIQUID PO ×4 (09:26→22:08)
--- NOTE | 2017-10-26 10:41 | PN_ITS ---
Patient Problems: Active and Suspected Problems Diabetic foot infection (Acute) Failure to thrive (Acute) Subjective: Patient seen this morning for follow up on feet and legs. He has no new complaints. He was resting in bed. - Physical Exam General: Alert, Oriented x3, Cooperative, No apparent distress Extremities: Capillary Refill Less than 3 Seconds, - - Bilateral foot/ankle/leg : There is continued skin discontinuity to the anterior and posterior right leg and the medial and lateral left leg, as well as to the lateral left heel. The wounds consists of granulation tissue and fibrous tissue. Chronic lichenification to the entire lower extremity and foot. No interdigital maceration. The odor is decreased. There is no bogginess or fluctuance on palpation bilateral lower extremity. He has continued significant edema reduction with increased skin wrinkles. There much less erythema. There is no deep probing to bone or deeper tissues bilateral. Less maloder, overall continued improvement noted. Toenails are elongated and thickened bilateral. Vital Signs Temp Pulse Resp BP Pulse Ox 99.3 F H 92 18 157/83 H 94 10/26/17 09:31 10/26/17 09:31 10/26/17 09:31 10/26/17 09:31 10/26/17 09:31 Oxygen Flow Rate 2 Oxygen Delivery Method Nasal Cannula Weight: 180.1 kg Body Mass Index (BMI) 57.4 Intake and Output for Last 24 Hours 10/24/17 10/25/17 10/26/17 23:59 23:59 23:59 Intake Total 2926 / 2926 1489 / 1489 791 / 791 Output Total 2450 / 2450 3150 / 3150 2700 / 2700 Balance 476 / 476 -1661 / -1661 -1909 / -1909 Microbiology Past 72 Hours 10/23/17 18:30 Gram Stain - Final Tissue Ulcer - Leg Wound Culture - Preliminary Klebsiella oxytoca Proteus sp. Staphylococcus aureus Anaerobic Culture - Preliminary Checking for anaerobes, further studies to follow. Laboratory Tests Past 24 Hrs 10/25/17 10/26/17 10/26/17 07:20 06:40 06:40 WBC 12.9 H RBC 3.56 L Hgb 10.6 L Hct 35.5 L MCV 99.7 H MCH 29.8 MCHC 29.9 L RDW 14.9 H RDW Differential 52.5 H Plt Count 237 MPV 10.0 Immature Gran % (Auto) 0.400 Neut % (Auto) 70.9 H Lymph % (Auto) 16.0 L [place] % (Auto) 11.4 H Eos % (Auto) 1.0 Baso % (Auto) 0.3 Absolute Neuts (auto) 9.2 H Absolute Lymphs (auto) 2.07 Total Counted Not Reportable Diff Path Review Reviewed Sodium 135 L Potassium 4.0 Chloride 95 L Carbon Dioxide 35.0 H Anion Gap 5 BUN 17 Creatinine 0.90 Estim Creat Clear Calc 80.74 Est GFR (MDRD) Af Amer 109 Est GFR (MDRD) Non-Af 90 BUN/Creatinine Ratio 19.0 Glucose 213 H Calcium 8.3 L Vancomycin Trough 10/26/17 08:30 WBC RBC Hgb Hct MCV MCH MCHC RDW RDW Differential Plt Count MPV Immature Gran % (Auto) Neut % (Auto) Lymph % (Auto) Gage % (Auto) Eos % (Auto) Baso % (Auto) Absolute Neuts (auto) Absolute Lymphs (auto) Total Counted Diff Path Review Sodium Potassium Chloride Carbon Dioxide Anion Gap BUN Creatinine Estim Creat Clear Calc Est GFR (MDRD) Af Amer Est GFR (MDRD) Non-Af BUN/Creatinine Ratio Glucose Calcium Vancomycin Trough 12.3 POC Glucose 10/26/17 10/26/17 10/25/17 09:07 02:37 21:00 POC Glucose 219 H 281 H 314 H 10/25/17 10/25/17 17:01 11:39 POC Glucose 322 H 349 H Assessment/Plan Active and Suspected Problems Diabetic foot infection (Acute) Failure to thrive (Acute) Left leg ulcers with fat layer exposed, infected Left lower extremity pain Right leg ulcer with fat layer exposed, not infected Diabetes with neuropathy Superobesity Bilateral chronic lower extremity lymphedema and edema Other comorbidities being worked up Diagnostic data was reviewed, WBC elevated to 12.9 (trending down). He is afebrile. Wounds/feet/legs bilateral continue to improve clinically. Previous left foot and left leg x-ray are negative for soft tissue emphysema or foreign body, acute fracture dislocation, or obvious Charcot changes; left lower extremity CT scan was reviewed without soft tissue emphysema or foreign fluid abscess, there is also no acute fractures or dislocations or Charcot or osseous destruction sites appreciated on imaging. Wound culture results reviewed, finals pending. Patient is on antibiotic therapy per Infectious Disease, and input is appreciated. To continue on IV antibiotics at this time. Continue with local wound care and dressing changes. Dressings were checked, cleansed feet/legs with soap and saline solution. Applied adaptic to the wound sites, with overlying gauze, abd pad, kerlix and jose bandages. Change daily. Continue with offloading heels at all times. Will plan to reduce patient's toenails tomorrow. DVT prophylaxis, pain management, and medical management per primary team is appreciated. Patient to be discharged to [facility] ([facility]) possibly saturday. Will continue to follow.
[2017-10-26 12:21] LABS: Bedside Glucose 305 mg/dL (70-110)
[2017-10-26] MEDS: 0.9% NaCl IVPB Med Flush (250 mL) 15 ML IV (13:00)
--- NOTE | 2017-10-26 13:43 | PCM.PN.HOSP ---
Patient Problems: Active and Suspected Problems Diabetic foot infection (Acute) Failure to thrive (Acute) Subjective: No new events. Vitals/I&O's: Vital Signs Temp Pulse Resp BP Pulse Ox 37.4 C H 92 18 157/83 H 94 10/26/17 09:31 10/26/17 09:31 10/26/17 09:31 10/26/17 09:31 10/26/17 09:31 Oxygen Flow Rate 2 Oxygen Delivery Method Nasal Cannula Weight: 180.1 kg Body Mass Index (BMI) 57.4 Intake and Output for Last 24 Hours 10/24/17 10/25/17 10/26/17 23:59 23:59 23:59 Intake Total 2926 / 2926 1489 / 1489 1990 Output Total 2450 / 2450 3150 / 3150 4080 / 4080 Balance 476 / 476 -1661 / -166 -2088 / General: Alert, Cooperative, No apparent distress HEENT: Atraumatic, Normocephalic Neck: No Nodes, Thyroid Normal Size and Texture Lungs: Clear to auscultation, Normal air movement, No rhonchi, No wheeze Cardiovascular: Regular rate, Regular Rhythm, Normal S1, Normal S2, No murmurs Abdomen: Bowel Sounds Present, Soft, Non Tender, Non-Distended, Obese Extremities: Edema Psych/Mental Status: Normal Affect, Appropriate Microbiology Past 72 Hours 10/23/17 18:30 Tissue Ulcer - Leg Gram Stain - Final 10/23/17 18:30 Tissue Ulcer - Leg Wound Culture - Preliminary Klebsiella oxytoca Proteus sp. Staphylococcus aureus 10/23/17 18:30 Tissue Ulcer - Leg Anaerobic Culture - Preliminary Checking for anaerobes, further studies to follow. Laboratory Results 10/25/17 07:20: Diff Path Review Reviewed 10/25/17 17:01: POC Glucose 322 H 10/25/17 21:00: POC Glucose 314 H 10/26/17 02:37: POC Glucose 281 H 10/26/17 06:40: WBC 12.9 H, RBC 3.56 L, Hgb 10.6 L, Hct 35.5 L, MCV 99.7 H, MCH 29.8, MCHC 29.9 L, RDW 14.9 H, RDW Differential 52.5 H, Plt Count 237, MPV 10.0, Immature Gran % (Auto) 0.400, Neut % (Auto) 70.9 H, Lymph % (Auto) 16.0 L, [place] % (Auto) 11.4 H, Eos % (Auto) 1.0, Baso % (Auto) 0.3, Absolute Neuts (auto) 9.2 H, Absolute Lymphs (auto) 2.07, Total Counted Not Reportable 10/26/17 06:40: Sodium 135 L, Potassium 4.0, Chloride 95 L, Carbon Dioxide 35.0 H, Anion Gap 5, BUN 17, Creatinine 0.90, Estim Creat Clear Calc 80.74, Est GFR (MDRD) Af Amer 109, Est GFR (MDRD) Non-Af 90, BUN/Creatinine Ratio 19.0, Glucose 213 H, Calcium 8.3 L 10/26/17 08:30: Vancomycin Trough 12.3 10/26/17 09:07: POC Glucose 219 H 10/26/17 12:15: POC Glucose 305 H Current Medications Acetaminophen (Tylenol) 650 mg PO Q6H PRN PRN PRN Reason: Mild Pain (scale 0-3)/T>100.7 Aspirin (Aspirin) 325 mg PO DAILY@0800 [facility] Last Admin: 10/26/17 09:23 Dose: 325 mg Atenolol (Tenormin (Beta Patrick)) 50 mg PO DAILY [facility] Last Admin: 10/26/17 09:23 Dose: 50 mg Calcitriol (Rocaltrol) 0.5 mcg PO DAILY [facility] Last Admin: 10/26/17 09:23 Dose: 0.5 mcg Dextrose (D50w Syringe) 0 gm IV X1 PRN; Protocol PRN Reason: Hypoglycemia Last Admin: 10/23/17 21:56 Dose: 25 gm Enoxaparin Sodium (Lovenox) 40 mg SC DAILY@1000 [facility] Last Admin: 10/26/17 09:24 Dose: 40 mg Escitalopram Oxalate (Lexapro) 10 mg PO DAILY [facility] Last Admin: 10/26/17 09:23 Dose: 10 mg Furosemide (Lasix) 40 mg PO BIDLX [facility] Last Admin: 10/26/17 09:22 Dose: 40 mg Glucagon () 1 mg IM .X1 PRN PRN Reason: Hypoglycemia Sodium Chloride () 250 mls @ 15 mls/hr IV .[id number] PRN PRN Reason: SALINE FLUSH Last Admin: 10/26/17 13:00 Dose: 15 mls/hr Sodium Chloride () 250 mls @ 15 mls/hr IV .[id number] PRN PRN Reason: SALINE FLUSH Meropenem 500 mg/ Sodium (Chloride) 60 mls @ 100 mls/hr IV Q6 [facility] Last Admin: 10/26/17 12:58 Dose: 100 mls/hr Vancomycin HCl (Vancomycin) 1,000 mg in 200 mls @ 200 mls/hr IV Q12H [facility] Last Admin: 10/26/17 10:08 Dose: 200 mls/hr Insulin Aspart (Novolog Flexpen (Bkc)) 0 units SC ACHS & 3AM KARLEE PRN Reason: Protocol Last Admin: 10/26/17 12:59 Dose: 4 u Insulin Aspart (Novolog Flexpen (Bkc)) 8 units SC TIDAC [facility] Last Admin: 10/26/17 12:59 Dose: 8 units Insulin Detemir (Levemir (Bkc)) 30 units SC BID [facility] Last Admin: 10/26/17 09:25 Dose: 30 units Magnesium Hydroxide (Milk Of Magnesia) 30 ml PO DAILY PRN PRN PRN Reason: Constipation Last Admin: 10/26/17 05:03 Dose: 30 ml Nutritional Formula (Lactose Free) (Glucerna Shake) 120 ml PO 4X/DAY [facility] Last Admin: 10/26/17 09:26 Dose: 120 ml Ondansetron HCl (Zofran) 4 mg IV Q8H PRN PRN PRN Reason: Nausea Oxycodone HCl (Oxyir) 5 mg PO Q4H PRN PRN PRN Reason: Moderate Pain (pain scale 4-5) Last Admin: 10/26/17 05:02 Dose: 5 mg Pravastatin Sodium (Pravachol) 20 mg PO QHS [facility] Last Admin: 10/25/17 21:01 Dose: 20 mg Sodium Chloride () 5 - 30 ml IV UD PRN PRN Reason: SALINE FLUSH Last Admin: 10/25/17 17:27 Dose: 10 ml Assessment/Plan Active and Suspected Problems Diabetic foot infection (Acute) Failure to thrive (Acute) 67-year-old white male presents after falling at home and unable to get up. Patient being admitted for diabetic foot wounds and infection. Also for rehabilitation purposes with physical and Occupational Therapy. 1. Diabetic foot wounds. Patient has very advanced lymphedema, lichenification of his feet. They are profoundly malodorous. Concern is for an underlying infection. Patient stated that he would not be able to tolerate an MRI given claustrophobia but told him that he may not a good fit given his body habitus into a MRI scanner. Will ask for podiatry as well as infectious disease to assist. Check wound cultures. We will have wound care evaluate him as well. Preliminary serology positive for MRSA staph aureus. Continue with vancomycin and meropenem. Tib-fib x-rays show degenerative changes with soft tissue swelling. CAT scan showed severe diffuse skin thickening and subcutaneous edema. No evidence of any drainable abscess. Foot x-ray showed marked soft tissue swelling without definite underlying bone or joint abnormality. Present culture showing gram-negative rods. 2. Failure to thrive Quite frankly I am surprised the patient was able to do as well as he did on his own with his legs being what they are and his other physical limitations. Physical and Occupational Therapy evaluate and treat Explained to patient that he is likely going to require group home facility upon discharge. 3. Diabetes mellitus type 2 Continue with patient's NPH but will also add sliding scale insulin. A1c 8.4. Is unclear as to where the patient's blood sugars were going as patient was on 90 units of NPH at home twice daily and patient was started on Levemir 45 units daily yesterday. Blood sugars have been in the 200s. Going to split the dose of the Levemir and put him on 30 units twice daily and monitor. 4. Lymphedema This is a chronic process. Though looking back in the patient's weights, appears to be pretty stable from 2013, last time he was at this hospital. We will check an echocardiogram. I would be concerned the patient has underlying pulmonary hypertension possibly group 3 due to obstructive sleep apnea. If so, would recommend patient having an outpatient polysomnogram to further evaluate that. Check liver function panel. 5. Morbid obesity Complicating care. Weight loss advised 6. DVT prophylaxis with low molecular weight heparin. 7. Shoulder pain Difficult to do range of motion with the patient's but I will check some x-rays on her make sure is no fracture or dislocation. Code Visit Inpatient E&M: 94126 Subs Hosp L2
--- NOTE | 2017-10-26 13:44 | RAD_ITS ---
STUDY: X-RAY - LEFT SHOULDER REASON FOR EXAM: Male, 67 years old. Bilateral shoulder pain. TECHNIQUE: 2 view(s) of the shoulder. COMPARISON: None. FINDINGS: There is cephalad migration of the humeral head which may impinge on the rotator cuff. There is degenerative arthrosis of the acromioclavicular joint without inferior osseous spur formation. Normal acromion. Normal humeral head and visualized proximal humerus. The soft tissue structures are unremarkable. Normal visualized pulmonary apex. RAD/Shoulder min 2 Views IMPRESSION: Degenerative changes of the left shoulder as described above. Electronically Signed: Denis Silva MD at 15:47 EST Tel , Service support ,
--- NOTE | 2017-10-26 13:47 | PN_ITS ---
Patient Problems: Active and Suspected Problems Diabetic foot infection (Acute) Failure to thrive (Acute) Subjective: No new events. Vitals/I&O's: Vital Signs Temp Pulse Resp BP Pulse Ox 37.4 C H 92 18 157/83 H 94 10/26/17 09:31 10/26/17 09:31 10/26/17 09:31 10/26/17 09:31 10/26/17 09:31 Oxygen Flow Rate 2 Oxygen Delivery Method Nasal Cannula Weight: 180.1 kg Body Mass Index (BMI) 57.4 Intake and Output for Last 24 Hours 10/24/17 10/25/17 10/26/17 23:59 23:59 23:59 Intake Total 2926 / 2926 1489 / 1489 1990 Output Total 2450 / 2450 3150 / 3150 4080 / 4080 Balance 476 / 476 -1661 / -166 -2088 / General: Alert, Cooperative, No apparent distress HEENT: Atraumatic, Normocephalic Neck: No Nodes, Thyroid Normal Size and Texture Lungs: Clear to auscultation, Normal air movement, No rhonchi, No wheeze Cardiovascular: Regular rate, Regular Rhythm, Normal S1, Normal S2, No murmurs Abdomen: Bowel Sounds Present, Soft, Non Tender, Non-Distended, Obese Extremities: Edema Psych/Mental Status: Normal Affect, Appropriate Microbiology Past 72 Hours 10/23/17 18:30 Tissue Ulcer - Leg Gram Stain - Final 10/23/17 18:30 Tissue Ulcer - Leg Wound Culture - Preliminary Klebsiella oxytoca Proteus sp. Staphylococcus aureus 10/23/17 18:30 Tissue Ulcer - Leg Anaerobic Culture - Preliminary Checking for anaerobes, further studies to follow. Laboratory Results 10/25/17 07:20: Diff Path Review Reviewed 10/25/17 17:01: POC Glucose 322 H 10/25/17 21:00: POC Glucose 314 H 10/26/17 02:37: POC Glucose 281 H 10/26/17 06:40: WBC 12.9 H, RBC 3.56 L, Hgb 10.6 L, Hct 35.5 L, MCV 99.7 H, MCH 29.8, MCHC 29.9 L, RDW 14.9 H, RDW Differential 52.5 H, Plt Count 237, MPV 10.0 , Immature Gran % (Auto) 0.400, Neut % (Auto) 70.9 H, Lymph % (Auto) 16.0 L, [place] % (Auto) 11.4 H, Eos % (Auto) 1.0, Baso % (Auto) 0.3, Absolute Neuts (auto ) 9.2 H, Absolute Lymphs (auto) 2.07, Total Counted Not Reportable 10/26/17 06:40: Sodium 135 L, Potassium 4.0, Chloride 95 L, Carbon Dioxide 35.0 H, Anion Gap 5, BUN 17, Creatinine 0.90, Estim Creat Clear Calc 80.74, Est GFR ( MDRD) Af Amer 109, Est GFR (MDRD) Non-Af 90, BUN/Creatinine Ratio 19.0, Glucose 213 H, Calcium 8.3 L 10/26/17 08:30: Vancomycin Trough 12.3 10/26/17 09:07: POC Glucose 219 H 10/26/17 12:15: POC Glucose 305 H Current Medications Acetaminophen (Tylenol) 650 mg PO Q6H PRN PRN PRN Reason: Mild Pain (scale 0-3)/T>100.7 Aspirin (Aspirin) 325 mg PO DAILY@0800 [facility] Last Admin: 10/26/17 09:23 Dose: 325 mg Atenolol (Tenormin (Beta Patrick)) 50 mg PO DAILY [facility] Last Admin: 10/26/17 09:23 Dose: 50 mg Calcitriol (Rocaltrol) 0.5 mcg PO DAILY [facility] Last Admin: 10/26/17 09:23 Dose: 0.5 mcg Dextrose (D50w Syringe) 0 gm IV X1 PRN; Protocol PRN Reason: Hypoglycemia Last Admin: 10/23/17 21:56 Dose: 25 gm Enoxaparin Sodium (Lovenox) 40 mg SC DAILY@1000 [facility] Last Admin: 10/26/17 09:24 Dose: 40 mg Escitalopram Oxalate (Lexapro) 10 mg PO DAILY [facility] Last Admin: 10/26/17 09:23 Dose: 10 mg Furosemide (Lasix) 40 mg PO BIDLX [facility] Last Admin: 10/26/17 09:22 Dose: 40 mg Glucagon () 1 mg IM .X1 PRN PRN Reason: Hypoglycemia Sodium Chloride () 250 mls @ 15 mls/hr IV .[id number] PRN PRN Reason: SALINE FLUSH Last Admin: 10/26/17 13:00 Dose: 15 mls/hr Sodium Chloride () 250 mls @ 15 mls/hr IV .[id number] PRN PRN Reason: SALINE FLUSH Meropenem 500 mg/ Sodium (Chloride) 60 mls @ 100 mls/hr IV Q6 [facility] Last Admin: 10/26/17 12:58 Dose: 100 mls/hr Vancomycin HCl (Vancomycin) 1,000 mg in 200 mls @ 200 mls/hr IV Q12H [facility] Last Admin: 10/26/17 10:08 Dose: 200 mls/hr Insulin Aspart (Novolog Flexpen (Bkc)) 0 units SC ACHS & 3AM [facility] PRN Reason: Protocol Last Admin: 10/26/17 12:59 Dose: 4 u Insulin Aspart (Novolog Flexpen (Bkc)) 8 units SC TIDAC [facility] Last Admin: 10/26/17 12:59 Dose: 8 units Insulin Detemir (Levemir (Bkc)) 30 units SC BID [facility] Last Admin: 10/26/17 09:25 Dose: 30 units Magnesium Hydroxide (Milk Of Magnesia) 30 ml PO DAILY PRN PRN PRN Reason: Constipation Last Admin: 10/26/17 05:03 Dose: 30 ml Nutritional Formula (Lactose Free) (Glucerna Shake) 120 ml PO 4X/DAY [facility] Last Admin: 10/26/17 09:26 Dose: 120 ml Ondansetron HCl (Zofran) 4 mg IV Q8H PRN PRN PRN Reason: Nausea Oxycodone HCl (Oxyir) 5 mg PO Q4H PRN PRN PRN Reason: Moderate Pain (pain scale 4-5) Last Admin: 10/26/17 05:02 Dose: 5 mg Pravastatin Sodium (Pravachol) 20 mg PO QHS [facility] Last Admin: 10/25/17 21:01 Dose: 20 mg Sodium Chloride () 5 - 30 ml IV UD PRN PRN Reason: SALINE FLUSH Last Admin: 10/25/17 17:27 Dose: 10 ml Assessment/Plan Active and Suspected Problems Diabetic foot infection (Acute) Failure to thrive (Acute) 67-year-old white male presents after falling at home and unable to get up. Patient being admitted for diabetic foot wounds and infection. Also for rehabilitation purposes with physical and Occupational Therapy. 1. Diabetic foot wounds. Patient has very advanced lymphedema, lichenification of his feet. They are profoundly malodorous. Concern is for an underlying infection. Patient stated that he would not be able to tolerate an MRI given claustrophobia but told him that he may not a good fit given his body habitus into a MRI scanner. Will ask for podiatry as well as infectious disease to assist. Check wound cultures. We will have wound care evaluate him as well. Preliminary serology positive for MRSA staph aureus. Continue with vancomycin and meropenem. Tib-fib x-rays show degenerative changes with soft tissue swelling. CAT scan showed severe diffuse skin thickening and subcutaneous edema. No evidence of any drainable abscess. Foot x-ray showed marked soft tissue swelling without definite underlying bone or joint abnormality. Present culture showing gram-negative rods. 2. Failure to thrive Quite frankly I am surprised the patient was able to do as well as he did on his own with his legs being what they are and his other physical limitations. Physical and Occupational Therapy evaluate and treat Explained to patient that he is likely going to require [place] [facility] upon discharge. 3. Diabetes mellitus type 2 Continue with patient's NPH but will also add sliding scale insulin. A1c 8.4. Is unclear as to where the patient's blood sugars were going as patient was on 90 units of NPH at home twice daily and patient was started on Levemir 45 units daily yesterday. Blood sugars have been in the 200s. Going to split the dose of the Levemir and put him on 30 units twice daily and monitor. 4. Lymphedema This is a chronic process. Though looking back in the patient's weights, appears to be pretty stable from 2013, last time he was at this hospital. We will check an echocardiogram. I would be concerned the patient has underlying pulmonary hypertension possibly group 3 due to obstructive sleep apnea. If so, would recommend patient having an outpatient polysomnogram to further evaluate that. Check liver function panel. 5. Morbid obesity Complicating care. Weight loss advised 6. DVT prophylaxis with low molecular weight heparin. 7. Shoulder pain Difficult to do range of motion with the patient's but I will check some x-rays on her make sure is no fracture or dislocation. Code Visit Inpatient E&M: 41620 Subs Hosp L2
--- NOTE | 2017-10-26 13:50 | RAD_ITS ---
STUDY: X-RAY - RIGHT SHOULDER REASON FOR EXAM: Male, 67 years old. Bilateral shoulder pain. TECHNIQUE: 2 view(s) of the shoulder. COMPARISON: None. FINDINGS: There is cephalad migration of the humeral head consistent with rotator cuff pathology. There is degenerative arthrosis of the acromioclavicular joint without inferior osseous spur formation. Normal acromion. Normal humeral head and visualized proximal humerus. The soft tissue structures are unremarkable. Normal visualized pulmonary apex. RAD/Shoulder min 2 Views IMPRESSION: Degenerative changes of the right shoulder as described above. Electronically Signed: Denis Silva MD at 15:46 EST Tel , Service support ,
[2017-10-26 16:20] LABS: Bedside Glucose 273 mg/dL (70-110)
[2017-10-26] MEDS: Acetaminophen 325 MG Tablet 650 MG PO (17:08)
--- NOTE | 2017-10-26 18:23 | EKG12_ITS ---
Test Reason : RYTHYM CHANGE Blood Pressure : / mmHG Vent. Rate : 101 BPM Atrial Rate : 147 BPM P-R Int : 162 ms QRS Dur : 088 ms QT Int : 362 ms P-R-T Axes : 044 043 064 degrees QTc Int : 469 ms Sinus tachycardia with Premature atrial complexes Otherwise normal ECG When compared with ECG of 26-OCT-2017 19:49, MANUAL COMPARISON REQUIRED, DATA IS UNCONFIRMED Confirmed by DEANNA MEZA ([id number]), social media editor FRANCISCO SARMIENTO ([id number]) on 10/31/2017 11:58:40 AM Referred By: ROQUE Confirmed By:DEANNA MEZA
[2017-10-26] MEDS: dilTIAZem 25 MG/5 ML Vial 10 MG IV BOLUS ×2 (20:08→20:38)
[2017-10-26 21:37] LABS: Lactic Acid 1.2 mmol/L (0.4-2.0)
[2017-10-26] MEDS: Pravastatin 20 MG Tablet PO (22:08)
[2017-10-26 22:21] LABS: Bedside Glucose 311 mg/dL (70-110)
--- NOTE | 2017-10-26 23:16 | EKG12_ITS ---
Test Reason : RULE OUT CARDIAC Blood Pressure : / mmHG Vent. Rate : 102 BPM Atrial Rate : 102 BPM P-R Int : 154 ms QRS Dur : 090 ms QT Int : 342 ms P-R-T Axes : 053 056 072 degrees QTc Int : 445 ms Sinus tachycardia with occasional Premature ventricular complexes Confirmed by ANA BAL, ALBARO ([id number]), movie editor FRANCISCO SARMIENTO ([id number]) on 11/06/2017 2:34:00 PM Referred By: RAIN Confirmed By:ALBARO PEREZ MD
[2017-10-27] VITALS (38 sets, daily range): BP systolic 130–191; BP diastolic 57–93; PULSE 66–137; RESP 12–28; TEMP 36.1–37.3; O2SAT 87–100
[2017-10-27 03:00] LABS: Anion Gap 6 (5-15); BUN 17 mg/dL (7-18); BUN/Creat Ratio 19.4 RATIO (10-20); Calcium,Total 8.6 mg/dL (8.5-10.1); Chloride 91 mmol/L (98-107); Creatinine, Serum 0.88 mg/dL (0.70-1.30); EST Glomerular Filtration Rate 92 mL/min (>60); Est Glom Filt Rate - Afr Amer 112 mL/min (>60); Estimated Creatinine Clearance 82.57 ml/min; Glucose 281 mg/dL (70-110); Magnesium 1.8 mg/dL (1.6-2.6); Potassium 4.2 mmol/L (3.5-5.1); Sodium Level 134 mmol/L (136-145)
[2017-10-27 03:06] LABS: Bedside Glucose 255 mg/dL (70-110)
[2017-10-27] MEDS: oxyCODONE 5 MG Tablet PO (03:06)
[2017-10-27] MEDS: Atenolol 100 MG Tablet PO (03:07)
[2017-10-27] MEDS: Metoprolol Tartrate 5 MG/5 ML Vial IV (03:10)
[2017-10-27] MEDS: Furosemide 40 MG/4 ML Vial IV ×3 (06:08→18:22)
--- NOTE | 2017-10-27 06:42 | RAD_ITS ---
STUDY: X-RAY CHEST REASON FOR EXAM: Male, 67 years old. Shortness of breath. TECHNIQUE: Single AP portable view of the chest. COMPARISON: 10/23/2017. FINDINGS: There are prominent markings bilaterally more focal and confluent in the right lower lung zone. There is no demonstrated pleural abnormality. There is borderline cardiomegaly. Normal mediastinum and osiel. Normal visualized pulmonary arteries. There is atherosclerotic tortuosity of the aortic arch and descending thoracic aorta. There are mild degenerative changes in the visualized thoracic spine. There are mild degenerative changes in the right shoulder. There is no demonstrated abnormality of the visualized soft tissue structures of the upper abdomen. RAD/Chest 1 View (Portable) IMPRESSION: Bilateral infiltrates/edema worse in the right lower lung. Electronically Signed: Denis Silva MD at 9:08 EST Tel , Service support ,
[2017-10-27 06:56] LABS: Allen Test POS; Base Excess 18 mmol/L (-2 to +2); Bicarbonate 44.3 mmol/L (22-26); Blood Gas Specimen Type ART; FI02 50; PO2 64 mmHG (75-100); SITE R Brachial; SO2 88 % (95-99); Time Given 635; Total Carbon Dioxide 47 mmol/L; pCO2 89.1 mmHg (35-45); pH 7.31 (7.35-7.45)
[2017-10-27] MEDS: Albuterol 2.5 MG/3 ML VIAL.NEB. INHALATION ×3 (07:25→15:53)
[2017-10-27] MEDS: 0.9% NaCl Peripheral Flush Adult/Peds IV ×3 (08:30→18:22)
[2017-10-27 09:21] LABS: Bedside Glucose 253 mg/dL (70-110)
--- NOTE | 2017-10-27 10:07 | PN_ITS ---
Patient Problems: Active and Suspected Problems Diabetic foot infection (Acute) Failure to thrive (Acute) Subjective: Patient seen for follow up on bilateral lower extremity. He was seen in the PCU where he was transferred to yesterday. - Physical Exam General: No apparent distress Extremities: Capillary Refill Less than 3 Seconds, - - Bilateral foot/ankle/leg : There is continued skin discontinuity to the anterior and posterior right leg and the medial and lateral left leg, as well as to the lateral left heel. The wounds consists of granulation tissue and fibrous tissue with wounds down to the superificial subcutaneous layer. Chronic lichenification to the entire lower extremity and foot. No interdigital maceration. The odor is decreased and minimal. There is no bogginess or fluctuance on palpation bilateral lower extremity. He has continued significant edema reduction with increased skin wrinkles. There much less to no erythema. There is no deep probing to bone or deeper tissues bilateral. Less maloder, overall continued improvement noted. Toenails 1-5 bilateral are elongated, dytrophic, yellow, thickened, painful bilateral. Vital Signs Temp Pulse Resp BP Pulse Ox 99.0 F 82 26 H 130/57 H 98 10/27/17 06:55 10/27/17 09:40 10/27/17 09:40 10/27/17 06:55 10/27/17 09:40 Oxygen Flow Rate 5 Oxygen Delivery Method Bi-pap Weight: 175.1 kg Body Mass Index (BMI) 57.4 Intake and Output for Last 24 Hours 10/25/17 10/26/17 10/27/17 23:59 23:59 23:59 Intake Total 1489 / 1489 3358 / 3358 240 / 240 Output Total 3150 / 3150 5405 / 5405 2300 / 2300 Balance -1661 / -1661 -2047 / -2047 -2060 / -2060 Microbiology Past 72 Hours 10/23/17 18:30 Gram Stain - Final Tissue Ulcer - Leg Wound Culture - Final Klebsiella oxytoca Proteus sp. Meth. resistant Staph. aureus Anaerobic Culture - Preliminary Checking for anaerobes, further studies to follow. Laboratory Tests Past 24 Hrs 10/26/17 10/26/17 10/26/17 18:48 21:03 22:11 Specimen Type Sample Site pH Bicarbonate Actual POC Total CO2 Base Excess O2 Saturation O2 % ABG pCO2 ABG pO2 Min Test O2 Delivery Device Blood Gas Notified Whom Blood Gas Notified Time Sodium Potassium Chloride Carbon Dioxide Anion Gap BUN Creatinine Estim Creat Clear Calc Est GFR (MDRD) Af Amer Est GFR (MDRD) Non-Af BUN/Creatinine Ratio Glucose Lactic Acid 1.2 Calcium Magnesium Troponin I < 0.02 < 0.02 10/27/17 10/27/17 10/27/17 02:35 06:46 08:50 Specimen Type ART Sample Site R Brachial pH 7.31 L Bicarbonate Actual 44.3 H POC Total CO2 47 Base Excess 18 H O2 Saturation 88 L O2 % 50 ABG pCO2 89.1 H* ABG pO2 64 L Min Test POS O2 Delivery Device Vent Mask Blood Gas Notified Whom [facility] Blood Gas Notified Time 635 Sodium 134 L Potassium 4.2 Chloride 91 L Carbon Dioxide 37.0 H Anion Gap 6 BUN 17 Creatinine 0.88 Estim Creat Clear Calc 82.57 Est GFR (MDRD) Af Amer 112 Est GFR (MDRD) Non-Af 92 BUN/Creatinine Ratio 19.4 Glucose 281 H Lactic Acid Calcium 8.6 Magnesium 1.8 Troponin I < 0.02 0.02 POC Glucose 10/27/17 10/27/17 10/26/17 07:08 02:43 22:04 POC Glucose 253 H 255 H 311 H 10/26/17 10/26/17 16:14 12:15 POC Glucose 273 H 305 H Assessment/Plan Active and Suspected Problems Diabetic foot infection (Acute) Failure to thrive (Acute) Left leg ulcers with fat layer exposed, infected Left lower extremity pain Right leg ulcer with fat layer exposed, not infected Diabetes with neuropathy Superobesity Bilateral chronic lower extremity lymphedema and edema Other comorbidities being worked up/managed Wounds/feet/legs bilateral continue to improve clinically. Previous left foot and left leg x-ray are negative for soft tissue emphysema or foreign body, acute fracture dislocation, or obvious Charcot changes; left lower extremity CT scan was reviewed without soft tissue emphysema or foreign fluid abscess, there is also no acute fractures or dislocations or Charcot or osseous destruction sites appreciated on imaging. Wound culture results reviewed; patient is on antibiotic therapy per Infectious Disease, and input is appreciated. To continue on IV antibiotics at this time. Continue with local wound care and dressing changes. Dressings were changed today with the assistance of nursing and aids, cleansed feet/legs with soap and normal saline solution. Applied adaptic to the wound sites, with overlying gauze , abd pad, kerlix and jose bandages. Change daily. Continue with offloading heels at all times. Debrided patient's toenails 1-5 bilateral using a nail nipper, this was done without incident. DVT prophylaxis, pain management, and medical management per primary team. Podiatry will continue to follow.
--- NOTE | 2017-10-27 10:27 | PCM.PN.HOSP ---
Patient Problems: Active and Suspected Problems Diabetic foot infection (Acute) Failure to thrive (Acute) Subjective: She was having confusion overnight's. Patient became tachycardic and was having respiratory difficulties. Patient had an ABG that showed a respiratory acidosis and patient was put on BiPAP. This morning, patient was oriented ?2 per nursing, however when I saw the patient was confused and A+O only to himself. However, the patient BiPAP was off at that time. Vitals/I&O's: Vital Signs Temp Pulse Resp BP Pulse Ox 37.2 C 82 26 H 130/57 H 98 10/27/17 06:55 10/27/17 09:40 10/27/17 09:40 10/27/17 06:55 10/27/17 09:40 Oxygen Flow Rate 5 Oxygen Delivery Method Bi-pap Weight: 175.1 kg Body Mass Index (BMI) 57.4 Intake and Output for Last 24 Hours 10/25/17 10/26/17 10/27/17 23:59 23:59 23:59 Intake Total 1489 / 1489 3358 / 3358 240 / 240 Output Total 3150 / 3150 5405 / 5405 2300 / 2300 Balance -1661 / -1661 -2047 / -2047 -2060 / -2060 General: Confused, - - Tachypneic. HEENT: Atraumatic, Normocephalic Neck: No Nodes, Thyroid Normal Size and Texture Lungs: Clear to auscultation, Normal air movement, No rhonchi, No wheeze Cardiovascular: Regular rate, Regular Rhythm, Normal S1, Normal S2, No murmurs Abdomen: Bowel Sounds Present, Soft, Non Tender, Non-Distended, No Hepato-splenomegaly, Obese Extremities: No Calf Tenderness, Edema Skin: - - Venous stasis dermatitis. Lichenification of lower extremities. Managed, did not remove those down. Onychomycosis Musculoskeletal: No Tenderness to Palpation of Joints or Extremities, No Muscle Wasting Psych/Mental Status: - - Confused. Oriented to self. Microbiology Past 72 Hours 10/23/17 18:30 Tissue Ulcer - Leg Gram Stain - Final 10/23/17 18:30 Tissue Ulcer - Leg Wound Culture - Final Klebsiella oxytoca Proteus sp. Meth. resistant Staph. aureus 10/23/17 18:30 Tissue Ulcer - Leg Anaerobic Culture - Preliminary Checking for anaerobes, further studies to follow. Laboratory Results 10/26/17 12:15: POC Glucose 305 H 10/26/17 16:14: POC Glucose 273 H 10/26/17 18:48: Troponin I < 0.02 10/26/17 21:03: Lactic Acid 1.2 10/26/17 22:04: POC Glucose 311 H 10/26/17 22:11: Troponin I < 0.02 10/27/17 02:35: Sodium 134 L, Potassium 4.2, Chloride 91 L, Carbon Dioxide 37.0 H, Anion Gap 6, BUN 17, Creatinine 0.88, Estim Creat Clear Calc 82.57, Est GFR (MDRD) Af Amer 112, Est GFR (MDRD) Non-Af 92, BUN/Creatinine Ratio 19.4, Glucose 281 H, Calcium 8.6, Magnesium 1.8, Troponin I < 0.02 10/27/17 02:43: POC Glucose 255 H 10/27/17 06:46: Specimen Type ART, Sample Site R Brachial, pH 7.31 L, Bicarbonate Actual 44.3 H, POC Total CO2 47, Base Excess 18 H, O2 Saturation 88 L, O2 % 50, ABG pCO2 89.1 H*, ABG pO2 64 L, Min Test POS, O2 Delivery Device Vent Mask, Blood Gas Notified Whom [facility] , Blood Gas Notified Time 635 10/27/17 07:08: POC Glucose 253 H 10/27/17 08:50: Troponin I 0.02 This x-ray reviewed and showed pulmonary edema worsened previous x-ray. Current Medications Acetaminophen (Tylenol) 650 mg PO Q6H PRN PRN PRN Reason: Mild Pain (scale 0-3)/T>100.7 Last Admin: 10/26/17 17:08 Dose: 650 mg Albuterol Sulfate (Ventolin Aerosols) 2.5 mg INHALATION Q2H PRN PRN PRN Reason: SHORTNESS OF BREATH/ WHEEZING Last Admin: 10/27/17 07:25 Dose: 2.5 mg Aspirin (Aspirin) 325 mg PO DAILY@0800 [facility] Last Admin: 10/27/17 08:42 Dose: Not Given Atenolol (Tenormin (Beta Patrick)) 100 mg PO DAILY [facility] Last Admin: 10/27/17 03:07 Dose: 100 mg Calcitriol (Rocaltrol) 0.5 mcg PO DAILY [facility] Last Admin: 10/26/17 09:23 Dose: 0.5 mcg Dextrose (D50w Syringe) 0 gm IV X1 PRN; Protocol PRN Reason: Hypoglycemia Last Admin: 10/23/17 21:56 Dose: 25 gm Enoxaparin Sodium (Lovenox) 40 mg SC DAILY@1000 [facility] Last Admin: 10/26/17 09:24 Dose: 40 mg Escitalopram Oxalate (Lexapro) 10 mg PO DAILY [facility] Last Admin: 10/26/17 09:23 Dose: 10 mg Furosemide (Lasix) 40 mg IV BID@1000,1800 [facility] Glucagon () 1 mg IM .X1 PRN PRN Reason: Hypoglycemia Sodium Chloride () 250 mls @ 15 mls/hr IV .[id number] PRN PRN Reason: SALINE FLUSH Last Admin: 10/26/17 13:00 Dose: 15 mls/hr Sodium Chloride () 250 mls @ 15 mls/hr IV .[id number] PRN PRN Reason: SALINE FLUSH Meropenem 500 mg/ Sodium (Chloride) 60 mls @ 100 mls/hr IV Q6 [facility] Last Admin: 10/27/17 06:10 Dose: 100 mls/hr Vancomycin HCl (Vancomycin) 1,000 mg in 200 mls @ 200 mls/hr IV Q12H [facility] Last Admin: 10/27/17 09:02 Dose: 200 mls/hr Insulin Aspart (Novolog Flexpen (Bkc)) 0 units SC ACHS & 3AM [facility] PRN Reason: Protocol Last Admin: 10/27/17 08:59 Dose: 3 u Insulin Aspart (Novolog Flexpen (Bkc)) 8 units SC TIDAC [facility] Last Admin: 10/27/17 08:59 Dose: 8 units Insulin Detemir (Levemir (Bkc)) 30 units SC BID [facility] Last Admin: 10/26/17 22:08 Dose: 30 units Magnesium Hydroxide (Milk Of Magnesia) 30 ml PO DAILY PRN PRN PRN Reason: Constipation Last Admin: 10/26/17 05:03 Dose: 30 ml Nutritional Formula (Lactose Free) (Glucerna Shake) 120 ml PO 4X/DAY [facility] Last Admin: 10/26/17 22:08 Dose: 120 ml Ondansetron HCl (Zofran) 4 mg IV Q8H PRN PRN PRN Reason: Nausea Oxycodone HCl (Oxyir) 5 mg PO Q4H PRN PRN PRN Reason: Moderate Pain (pain scale 4-5) Last Admin: 10/27/17 03:06 Dose: 5 mg Pravastatin Sodium (Pravachol) 20 mg PO QHS [facility] Last Admin: 10/26/17 22:08 Dose: 20 mg Sodium Chloride () 5 - 30 ml IV UD PRN PRN Reason: SALINE FLUSH Last Admin: 10/25/17 17:27 Dose: 10 ml Assessment/Plan Active and Suspected Problems Diabetic foot infection (Acute) Failure to thrive (Acute) 67-year-old white male presents after falling at home and unable to get up. Patient being admitted for diabetic foot wounds and infection. Also for rehabilitation purposes with physical and Occupational Therapy. On the evening of patient became confused and short of breath. 1. Diabetic foot wounds. Patient has very advanced lymphedema, lichenification of his feet. They are profoundly malodorous. Concern is for an underlying infection. Patient stated that he would not be able to tolerate an MRI given claustrophobia but told him that he may not a good fit given his body habitus into a MRI scanner. Will ask for podiatry as well as infectious disease to assist. Check wound cultures. We will have wound care evaluate him as well. Preliminary serology positive for MRSA staph aureus. Continue with vancomycin and meropenem. Tib-fib x-rays show degenerative changes with soft tissue swelling. CAT scan showed severe diffuse skin thickening and subcutaneous edema. No evidence of any drainable abscess. Foot x-ray showed marked soft tissue swelling without definite underlying bone or joint abnormality. Present culture showing gram-negative rods. 2. Acute hypercapnic respiratory failure Likely related the patient's sleep apnea, obesity hypoventilation but also some medications. I will discontinue oxycodone Continue with BiPAP Repeat ABG I will start the patient on IV Lasix to see if diuresis can help. Not convinced that this is really infiltrative type pattern. 3. Metabolic encephalopathy Patient is oriented oriented to self. Feels prior due to his CO2 narcosis. Patient was taking oxycodone but I do not feel that was a direct cause. 4. Failure to thrive Quite frankly I am surprised the patient was able to do as well as he did on his own with his legs being what they are and his other physical limitations. Physical and Occupational Therapy evaluate and treat Explained to patient that he is likely going [facility]. 5. Diabetes mellitus type 2 Continue with patient's NPH but will also add sliding scale insulin. A1c 8.4. Is unclear as to where the patient's blood sugars were going as patient was on 90 units of NPH at home twice daily and patient was started on Levemir 45 units daily yesterday. Blood sugars have been in the 200s. Going to split the dose of the Levemir and put him on 30 units twice daily and monitor. 6. Lymphedema This is a chronic process. Though looking back in the patient's weights, appears to be pretty stable from 2013, last time he was at this hospital. We will check an echocardiogram. I would be concerned the patient has underlying pulmonary hypertension possibly group 3 due to obstructive sleep apnea. If so, would recommend patient having an outpatient polysomnogram to further evaluate that. Check liver function panel. 7. Morbid obesity Complicating care. Weight loss advised 8. DVT prophylaxis with low molecular weight heparin. 9. Shoulder pain Shoulder x-rays show no fracture nor dislocation. Code Visit Inpatient E&M: 55288 [facility]
--- NOTE | 2017-10-27 10:33 | PN_ITS ---
Patient Problems: Active and Suspected Problems Diabetic foot infection (Acute) Failure to thrive (Acute) Subjective: She was having confusion overnight's. Patient became tachycardic and was having respiratory difficulties. Patient had an ABG that showed a respiratory acidosis and patient was put on BiPAP. This morning, patient was oriented ?2 per nursing, however when I saw the patient was confused and A+O only to himself. However, the patient BiPAP was off at that time. Vitals/I&O's: Vital Signs Temp Pulse Resp BP Pulse Ox 37.2 C 82 26 H 130/57 H 98 10/27/17 06:55 10/27/17 09:40 10/27/17 09:40 10/27/17 06:55 10/27/17 09:40 Oxygen Flow Rate 5 Oxygen Delivery Method Bi-pap Weight: 175.1 kg Body Mass Index (BMI) 57.4 Intake and Output for Last 24 Hours 10/25/17 10/26/17 10/27/17 23:59 23:59 23:59 Intake Total 1489 / 1489 3358 / 3358 240 / 240 Output Total 3150 / 3150 5405 / 5405 2300 / 2300 Balance -1661 / -1661 -2047 / -2047 -2060 / -2060 General: Confused, - - Tachypneic. HEENT: Atraumatic, Normocephalic Neck: No Nodes, Thyroid Normal Size and Texture Lungs: Clear to auscultation, Normal air movement, No rhonchi, No wheeze Cardiovascular: Regular rate, Regular Rhythm, Normal S1, Normal S2, No murmurs Abdomen: Bowel Sounds Present, Soft, Non Tender, Non-Distended, No Hepato- splenomegaly, Obese Extremities: No Calf Tenderness, Edema Skin: - - Venous stasis dermatitis. Lichenification of lower extremities. Managed, did not remove those down. Onychomycosis Musculoskeletal: No Tenderness to Palpation of Joints or Extremities, No Muscle Wasting Psych/Mental Status: - - Confused. Oriented to self. Microbiology Past 72 Hours 10/23/17 18:30 Tissue Ulcer - Leg Gram Stain - Final 10/23/17 18:30 Tissue Ulcer - Leg Wound Culture - Final Klebsiella oxytoca Proteus sp. Meth. resistant Staph. aureus 10/23/17 18:30 Tissue Ulcer - Leg Anaerobic Culture - Preliminary Checking for anaerobes, further studies to follow. Laboratory Results 10/26/17 12:15: POC Glucose 305 H 10/26/17 16:14: POC Glucose 273 H 10/26/17 18:48: Troponin I < 0.02 10/26/17 21:03: Lactic Acid 1.2 10/26/17 22:04: POC Glucose 311 H 10/26/17 22:11: Troponin I < 0.02 10/27/17 02:35: Sodium 134 L, Potassium 4.2, Chloride 91 L, Carbon Dioxide 37.0 H, Anion Gap 6, BUN 17, Creatinine 0.88, Estim Creat Clear Calc 82.57, Est GFR ( MDRD) Af Amer 112, Est GFR (MDRD) Non-Af 92, BUN/Creatinine Ratio 19.4, Glucose 281 H, Calcium 8.6, Magnesium 1.8, Troponin I < 0.02 10/27/17 02:43: POC Glucose 255 H 10/27/17 06:46: Specimen Type ART, Sample Site R Brachial, pH 7.31 L, Bicarbonate Actual 44.3 H, POC Total CO2 47, Base Excess 18 H, O2 Saturation 88 L, O2 % 50, ABG pCO2 89.1 H*, ABG pO2 64 L, Min Test POS, O2 Delivery Device Vent Mask, Blood Gas Notified Whom [facility] , Blood Gas Notified Time 635 10/27/17 07:08: POC Glucose 253 H 10/27/17 08:50: Troponin I 0.02 This x-ray reviewed and showed pulmonary edema worsened previous x-ray. Current Medications Acetaminophen (Tylenol) 650 mg PO Q6H PRN PRN PRN Reason: Mild Pain (scale 0-3)/T>100.7 Last Admin: 10/26/17 17:08 Dose: 650 mg Albuterol Sulfate (Ventolin Aerosols) 2.5 mg INHALATION Q2H PRN PRN PRN Reason: SHORTNESS OF BREATH/ WHEEZING Last Admin: 10/27/17 07:25 Dose: 2.5 mg Aspirin (Aspirin) 325 mg PO DAILY@0800 [facility] Last Admin: 10/27/17 08:42 Dose: Not Given Atenolol (Tenormin (Beta Patrick)) 100 mg PO DAILY [facility] Last Admin: 10/27/17 03:07 Dose: 100 mg Calcitriol (Rocaltrol) 0.5 mcg PO DAILY [facility] Last Admin: 10/26/17 09:23 Dose: 0.5 mcg Dextrose (D50w Syringe) 0 gm IV X1 PRN; Protocol PRN Reason: Hypoglycemia Last Admin: 10/23/17 21:56 Dose: 25 gm Enoxaparin Sodium (Lovenox) 40 mg SC DAILY@1000 [facility] Last Admin: 10/26/17 09:24 Dose: 40 mg Escitalopram Oxalate (Lexapro) 10 mg PO DAILY [facility] Last Admin: 10/26/17 09:23 Dose: 10 mg Furosemide (Lasix) 40 mg IV BID@1000,1800 [facility] Glucagon () 1 mg IM .X1 PRN PRN Reason: Hypoglycemia Sodium Chloride () 250 mls @ 15 mls/hr IV .[id number] PRN PRN Reason: SALINE FLUSH Last Admin: 10/26/17 13:00 Dose: 15 mls/hr Sodium Chloride () 250 mls @ 15 mls/hr IV .[id number] PRN PRN Reason: SALINE FLUSH Meropenem 500 mg/ Sodium (Chloride) 60 mls @ 100 mls/hr IV Q6 [facility] Last Admin: 10/27/17 06:10 Dose: 100 mls/hr Vancomycin HCl (Vancomycin) 1,000 mg in 200 mls @ 200 mls/hr IV Q12H [facility] Last Admin: 10/27/17 09:02 Dose: 200 mls/hr Insulin Aspart (Novolog Flexpen (Bkc)) 0 units SC ACHS & 3AM [facility] PRN Reason: Protocol Last Admin: 10/27/17 08:59 Dose: 3 u Insulin Aspart (Novolog Flexpen (Bkc)) 8 units SC TIDAC [facility] Last Admin: 10/27/17 08:59 Dose: 8 units Insulin Detemir (Levemir (Bkc)) 30 units SC BID [facility] Last Admin: 10/26/17 22:08 Dose: 30 units Magnesium Hydroxide (Milk Of Magnesia) 30 ml PO DAILY PRN PRN PRN Reason: Constipation Last Admin: 10/26/17 05:03 Dose: 30 ml Nutritional Formula (Lactose Free) (Glucerna Shake) 120 ml PO 4X/DAY [facility] Last Admin: 10/26/17 22:08 Dose: 120 ml Ondansetron HCl (Zofran) 4 mg IV Q8H PRN PRN PRN Reason: Nausea Oxycodone HCl (Oxyir) 5 mg PO Q4H PRN PRN PRN Reason: Moderate Pain (pain scale 4-5) Last Admin: 10/27/17 03:06 Dose: 5 mg Pravastatin Sodium (Pravachol) 20 mg PO QHS [facility] Last Admin: 10/26/17 22:08 Dose: 20 mg Sodium Chloride () 5 - 30 ml IV UD PRN PRN Reason: SALINE FLUSH Last Admin: 10/25/17 17:27 Dose: 10 ml Assessment/Plan Active and Suspected Problems Diabetic foot infection (Acute) Failure to thrive (Acute) 67-year-old white male presents after falling at home and unable to get up. Patient being admitted for diabetic foot wounds and infection. Also for rehabilitation purposes with physical and Occupational Therapy. On the evening of patient became confused and short of breath. 1. Diabetic foot wounds. Patient has very advanced lymphedema, lichenification of his feet. They are profoundly malodorous. Concern is for an underlying infection. Patient stated that he would not be able to tolerate an MRI given claustrophobia but told him that he may not a good fit given his body habitus into a MRI scanner. Will ask for podiatry as well as infectious disease to assist. Check wound cultures. We will have wound care evaluate him as well. Preliminary serology positive for MRSA staph aureus. Continue with vancomycin and meropenem. Tib-fib x-rays show degenerative changes with soft tissue swelling. CAT scan showed severe diffuse skin thickening and subcutaneous edema. No evidence of any drainable abscess. Foot x-ray showed marked soft tissue swelling without definite underlying bone or joint abnormality. Present culture showing gram-negative rods. 2. Acute hypercapnic respiratory failure Likely related the patient's sleep apnea, obesity hypoventilation but also some medications. I will discontinue oxycodone Continue with BiPAP Repeat ABG I will start the patient on IV Lasix to see if diuresis can help. Not convinced that this is really infiltrative type pattern. 3. Metabolic encephalopathy Patient is oriented oriented to self. Feels prior due to his CO2 narcosis. Patient was taking oxycodone but I do not feel that was a direct cause. 4. Failure to thrive Quite frankly I am surprised the patient was able to do as well as he did on his own with his legs being what they are and his other physical limitations. Physical and Occupational Therapy evaluate and treat Explained to patient that he is likely going to require [facility] facility upon discharge. 5. Diabetes mellitus type 2 Continue with patient's NPH but will also add sliding scale insulin. A1c 8.4. Is unclear as to where the patient's blood sugars were going as patient was on 90 units of NPH at home twice daily and patient was started on Levemir 45 units daily yesterday. Blood sugars have been in the 200s. Going to split the dose of the Levemir and put him on 30 units twice daily and monitor. 6. Lymphedema This is a chronic process. Though looking back in the patient's weights, appears to be pretty stable from 2013, last time he was at this hospital. We will check an echocardiogram. I would be concerned the patient has underlying pulmonary hypertension possibly group 3 due to obstructive sleep apnea. If so, would recommend patient having an outpatient polysomnogram to further evaluate that. Check liver function panel. 7. Morbid obesity Complicating care. Weight loss advised 8. DVT prophylaxis with low molecular weight heparin. 9. Shoulder pain Shoulder x-rays show no fracture nor dislocation. Code Visit Inpatient E&M: [id number] [facility] L3
[2017-10-27] MEDS: Enoxaparin 40 MG/0.4 ML Syringe SC (11:19)
[2017-10-27 11:40] LABS: Bedside Glucose 286 mg/dL (70-110)
[2017-10-27 16:06] LABS: Bedside Glucose 223 mg/dL (70-110)
[2017-10-27] MEDS: Acetaminophen 325 MG Tablet 650 MG PO (18:23)
[2017-10-27 22:51] LABS: Bedside Glucose 170 mg/dL (70-110)
[2017-10-28] VITALS (35 sets, daily range): BP systolic 123–190; BP diastolic 60–95; PULSE 68–140; RESP 12–26; TEMP 35.9–37.1; O2SAT 91–100
[2017-10-28 03:31] LABS: Bedside Glucose 146 mg/dL (70-110)
[2017-10-28 06:11] LABS: Allen Test POS; Base Excess 23 mmol/L (-2 to +2); Bicarbonate 48.1 mmol/L (22-26); Blood Gas Specimen Type ART; EPAP 10; FI02 50; IPAP 16; PO2 93 mmHG (75-100); RR 12; SITE R Radial; SO2 97 % (95-99); Time Given 1145; Total Carbon Dioxide > 50 mmol/L; pCO2 78.1 mmHg (35-45)
[2017-10-28 07:01] LABS: Bedside Glucose 120 mg/dL (70-110)
[2017-10-28] MEDS: Aspirin 325 MG Tablet PO (08:27)
[2017-10-28 08:34] LABS: Blood Gas Specimen Type ART
[2017-10-28 08:35] LABS: Allen Test POS; SITE R BRACHIAL
[2017-10-28 08:36] LABS: EPAP 10; FI02 50; IPAP 20; O2 Delivery Device Bi Pap; Time Given 710
[2017-10-28 08:37] LABS: Base Excess 28 mmol/L (-2 to +2); Bicarbonate 52.7 mmol/L (22-26); PO2 104 mmHG (75-100); pCO2 85.1 mmHg (35-45)
[2017-10-28 08:38] LABS: SO2 97 % (95-99); Total Carbon Dioxide > 50 mmol/L
[2017-10-28] MEDS: Calcitriol 0.25 MCG Capsule 0.5 MCG PO (09:07)
[2017-10-28] MEDS: Atenolol 100 MG Tablet PO (09:07)
[2017-10-28] MEDS: Enoxaparin 40 MG/0.4 ML Syringe SC ×2 (09:08→22:05)
[2017-10-28] MEDS: Furosemide 40 MG/4 ML Vial IV (09:08)
[2017-10-28] MEDS: Escitalopram Oxalate 10 MG Tablet PO (09:08)
[2017-10-28] MEDS: Glucerna Shake 120 ML LIQUID PO ×2 (09:08→17:18)
--- NOTE | 2017-10-28 11:17 | PN.ID_ITS ---
Patient Problems: Active and Suspected Problems Diabetic foot infection (Acute) Failure to thrive (Acute) Subjective: Increased SOB overnight, now on NIPPV. Picc placed this AM. No fever. - Physical Exam General: Alert, Cooperative Lungs: Rales, Rhonchi Cardiovascular: Tachycardic Abdomen: Soft, Non Tender, Non-Distended, Obese Extremities: Edema Skin: - - BLE with diffuse lichenification, redness and ulceration much improved Vital Signs Temp Pulse Resp BP Pulse Ox 96.7 F L 70 20 H 123/70 H 100 10/28/17 11:00 10/28/17 11:00 10/28/17 11:00 10/28/17 11:00 10/28/17 11:00 Oxygen Flow Rate 6 Oxygen Delivery Method Bi-pap Weight: 173.3 kg Body Mass Index (BMI) 57.4 Intake and Output for Last 24 Hours 10/26/17 10/27/17 10/28/17 23:59 23:59 23:59 Intake Total 3358 / 3358 1421 / 1421 286 / 286 Output Total 5405 / 5405 5450 / 5450 400 / 400 Balance -2047 / -2047 -4029 / -4029 -114 / -114 Microbiology Past 72 Hours 10/23/17 18:30 Gram Stain - Final Tissue Ulcer - Leg Wound Culture - Final Klebsiella oxytoca Proteus sp. Meth. resistant Staph. aureus Anaerobic Culture - Preliminary Checking for anaerobes, further studies to follow. Laboratory Tests Past 24 Hrs 10/27/17 10/27/17 10/28/17 11:41 11:45 07:05 WBC RBC Hgb Hct MCV MCH MCHC RDW RDW Differential Plt Count Neut % (Auto) Absolute Neuts (auto) Total Counted Specimen Type ART Cancelled ART Sample Site R Radial Cancelled R BRACHIAL pH 7.40 Cancelled 7.40 Bicarbonate Actual 48.1 H Cancelled 52.7 H POC Total CO2 > 50 Cancelled > 50 Base Excess 23 H Cancelled 28 H O2 Saturation 97 Cancelled 97 O2 % 50 Cancelled 50 ABG pCO2 78.1 H* Cancelled 85.1 H* ABG pO2 93 Cancelled 104 H Min Test POS Cancelled POS Respiration Rate 12 Cancelled O2 Delivery Device Bi / C PAP Cancelled Bi Pap Liter Flow Cancelled Minute Volume Cancelled Vent Mode Cancelled Tidal Volume Cancelled POC PEEP Cancelled POC Pressure Suppt Cancelled Pressure High Cancelled Pressure Low Cancelled Time High Cancelled Time Low Cancelled EPAP 10 Cancelled 10 IPAP 16 Cancelled 20 Blood Gas Notified Whom HOSP MD Cancelled HOSP MD Blood Gas Notified Time 1145 Cancelled 710 Sodium Potassium Chloride Carbon Dioxide Anion Gap BUN Creatinine Est GFR (MDRD) Af Amer Est GFR (MDRD) Non-Af BUN/Creatinine Ratio Glucose Calcium 10/28/17 10/28/17 11:05 11:05 WBC Pending RBC Pending Hgb Pending Hct Pending MCV Pending MCH Pending MCHC Pending RDW Pending RDW Differential Pending Plt Count Pending Neut % (Auto) Pending Absolute Neuts (auto) Pending Total Counted Pending Specimen Type Sample Site pH Bicarbonate Actual POC Total CO2 Base Excess O2 Saturation O2 % ABG pCO2 ABG pO2 Min Test Respiration Rate O2 Delivery Device Liter Flow Minute Volume Vent Mode Tidal Volume POC PEEP POC Pressure Suppt Pressure High Pressure Low Time High Time Low EPAP IPAP Blood Gas Notified Whom Blood Gas Notified Time Sodium Pending Potassium Pending Chloride Pending Carbon Dioxide Pending Anion Gap Pending BUN Pending Creatinine Pending Est GFR (MDRD) Af Amer Pending Est GFR (MDRD) Non-Af Pending BUN/Creatinine Ratio Pending Glucose Pending Calcium Pending POC Glucose 10/28/17 10/28/17 10/27/17 06:55 03:20 22:36 POC Glucose 120 H 146 H 170 H 10/27/17 10/27/17 16:00 11:32 POC Glucose 223 H 286 H Route of nutrition/ use of supplements: [] Nutritional Intake: [] IV Site: [] Mendez Catheter: [] - Assessment/Plan Antibiotics: [] Assessment/Plan: [] Active and Suspected Problems Diabetic foot infection (Acute) Failure to thrive (Acute) BLE DM infection with chronic lymphedema - wound pcr (+) MRSA. H/o rash with PCN and reports reaction to keflex that caused his lymphedema. Cont vanc/ meropenem for now. CT showed no abscess. Legs much improved. Wound cx with klebs, proteus, and mrsa. Plan on transitioning him to levaquin and either bactrim or doxy depending on renal function. Given resp issues, will keep iv abx for now. Will follow.
[2017-10-28 11:25] LABS: Absolute Lymphocyte Count 0.83 X10^3/ul (0.83-4.51); Absolute Neutrophil Count 6.5 X10^3/uL (2.0-7.7); Basophil# 0.02 X10^3/uL; Basophil% 0.2 % (0-1); Eosinophil# 0.04 X10^3/uL; Eosinophils% 0.5 % (0-5); Hematocrit 37.2 % (40-54); Lymphocyte # 0.83 X10^3/ul (4.0); Lymphocyte % 9.6 % (19-41); Mean Corp Hgb Conc 29.6 g/gl (32-36); Mean Corpuscular Volume 101.4 fL (80-94); Mean Platelet Vol. 9.9 fl (6.2-12.0); Monocyte# 1.16 X10^3/uL; Monocyte% 13.5 % (0-10); Neutrophil # 6.54 X10^3/uL (2.7-7.7); Platelet Count 186 K/mm3 (150-450); RBC Distribution Width CV 14.7 % (11.6-14.6); RBC Distribution Width SD 53.1 fl (35.1-43.9); Red Blood Count 3.67 M/mm3 (4.6-6.2); White Blood Count 8.6 K/mm3 (4.4-11.0)
--- NOTE | 2017-10-28 11:25 | PCM.PN.HOSP ---
Patient Problems: Active and Suspected Problems Diabetic foot infection (Acute) Failure to thrive (Acute) Acute respiratory failure with hypoxia and hypercapnia (Acute) Subjective: Patient is a 67-year-old gentleman with multiple comorbidities including morbid obesity with BMI of 55.6, bilateral lymphedema admitted with lower extremity wound infection. Cultures so far positive for MRSA, Klebsiella oxytoca and Proteus sp. Objective: GENERAL: cooperative HEENT: Clear conjunctiva, NECK; supple, normal thyroid, CHEST: diminished to auscultation bilaterally, HEART: Regular S1 S2, no audible murmurs ABDOMEN: soft, normoactive bowel sounds, RECTAL: deferred EXTREMITIES: Bilateral lymphedema [employer]: Awake, no lateralizing signs. SKIN: jose wrap both lower extremities Vitals/I&O's: Vital Signs Temp Pulse Resp BP Pulse Ox 96.7 F L 70 20 H 123/70 H 100 10/28/17 11:00 10/28/17 11:00 10/28/17 11:00 10/28/17 11:00 10/28/17 11:00 Oxygen Flow Rate 6 Oxygen Delivery Method Bi-pap Weight: 173.3 kg Body Mass Index (BMI) 57.4 Intake and Output for Last 24 Hours 10/26/17 10/27/17 10/28/17 23:59 23:59 23:59 Intake Total 3358 / 3358 1421 / 1421 877 / 877 Output Total 5405 / 5405 5450 / 5450 2049 / 2049 Balance -2047 / -2047 -4029 / -4029 -1173 / -1173 Microbiology Past 72 Hours 10/23/17 18:30 Tissue Ulcer - Leg Gram Stain - Final 10/23/17 18:30 Tissue Ulcer - Leg Wound Culture - Final Klebsiella oxytoca Proteus sp. Meth. resistant Staph. aureus 10/23/17 18:30 Tissue Ulcer - Leg Anaerobic Culture - Preliminary Checking for anaerobes, further studies to follow. Laboratory Results 10/27/17 11:32: POC Glucose 286 H 10/27/17 11:41: Specimen Type ART, Sample Site R Radial, pH 7.40, Bicarbonate Actual 48.1 H, POC Total CO2 > 50, Base Excess 23 H, O2 Saturation 97, O2 % 50, ABG pCO2 78.1 H*, ABG pO2 93, Min Test POS, Respiration Rate 12, O2 Delivery Device Bi / C PAP, EPAP 10, IPAP 16, Blood Gas Notified Whom [facility], Blood Gas Notified Time 1145 10/27/17 11:45: Specimen Type Cancelled, Sample Site Cancelled, pH Cancelled, Bicarbonate Actual Cancelled, POC Total CO2 Cancelled, Base Excess Cancelled, O2 Saturation Cancelled, O2 % Cancelled, ABG pCO2 Cancelled, ABG pO2 Cancelled, Min Test Cancelled, Respiration Rate Cancelled, O2 Delivery Device Cancelled, Liter Flow Cancelled, Minute Volume Cancelled, Vent Mode Cancelled, Tidal Volume Cancelled, POC PEEP Cancelled, POC Pressure Suppt Cancelled, Pressure High Cancelled, Pressure Low Cancelled, Time High Cancelled, Time Low Cancelled, EPAP Cancelled, IPAP Cancelled, Blood Gas Notified Whom Cancelled, Blood Gas Notified Time Cancelled 10/27/17 16:00: POC Glucose 223 H 10/27/17 22:36: POC Glucose 170 H 10/28/17 03:20: POC Glucose 146 H 10/28/17 06:55: POC Glucose 120 H 10/28/17 07:05: Specimen Type ART, Sample Site R BRACHIAL, pH 7.40, Bicarbonate Actual 52.7 H, POC Total CO2 > 50, Base Excess 28 H, O2 Saturation 97, O2 % 50, ABG pCO2 85.1 H*, ABG pO2 104 H, Min Test POS, O2 Delivery Device Bi Pap, EPAP 10, IPAP 20, Blood Gas Notified Whom [facility], Blood Gas Notified Time 710 10/28/17 11:05: WBC Pending, RBC Pending, Hgb Pending, Hct Pending, MCV Pending, MCH Pending, MCHC Pending, RDW Pending, RDW Differential Pending, Plt Count Pending, Neut % (Auto) Pending, Absolute Neuts (auto) Pending, Total Counted Pending 10/28/17 11:05: Sodium Pending, Potassium Pending, Chloride Pending, Carbon Dioxide Pending, Anion Gap Pending, BUN Pending, Creatinine Pending, Est GFR (MDRD) Af Amer Pending, Est GFR (MDRD) Non-Af Pending, BUN/Creatinine Ratio Pending, Glucose Pending, Calcium Pending Current Medications Acetaminophen (Tylenol) 650 mg PO Q6H PRN PRN PRN Reason: Mild Pain (scale 0-3)/T>100.7 Last Admin: 10/27/17 18:23 Dose: 650 mg Albuterol Sulfate (Ventolin Aerosols) 2.5 mg INHALATION Q2H PRN PRN PRN Reason: SHORTNESS OF BREATH/ WHEEZING Last Admin: 10/27/17 15:53 Dose: 2.5 mg Aspirin (Aspirin) 325 mg PO DAILY@0800 [facility] Last Admin: 10/28/17 08:27 Dose: 325 mg Atenolol (Tenormin (Beta Patrick)) 100 mg PO DAILY [facility] Last Admin: 10/28/17 09:07 Dose: 100 mg Calcitriol (Rocaltrol) 0.5 mcg PO DAILY [facility] Last Admin: 10/28/17 09:07 Dose: 0.5 mcg Dextrose (D50w Syringe) 0 gm IV X1 PRN; Protocol PRN Reason: Hypoglycemia Last Admin: 10/23/17 21:56 Dose: 25 gm Enoxaparin Sodium (Lovenox) 40 mg SC DAILY@1000 [facility] Last Admin: 10/28/17 09:08 Dose: 40 mg Escitalopram Oxalate (Lexapro) 10 mg PO DAILY [facility] Last Admin: 10/28/17 09:08 Dose: 10 mg Furosemide (Lasix) 40 mg IV BID@1000,1800 [facility] Last Admin: 10/28/17 09:08 Dose: 40 mg Glucagon () 1 mg IM .X1 PRN PRN Reason: Hypoglycemia Sodium Chloride () 250 mls @ 15 mls/hr IV .[id number] PRN PRN Reason: SALINE FLUSH Meropenem 500 mg/ Sodium (Chloride) 60 mls @ 100 mls/hr IV Q6 [facility] Last Admin: 10/28/17 05:18 Dose: 100 mls/hr Vancomycin HCl (Vancomycin) 1,000 mg in 200 mls @ 200 mls/hr IV Q12H [facility] Last Admin: 10/28/17 09:07 Dose: 200 mls/hr Insulin Aspart (Novolog Flexpen (Bkc)) 0 units SC ACHS & 3AM [facility] PRN Reason: Protocol Last Admin: 10/28/17 07:52 Dose: Not Given Insulin Aspart (Novolog Flexpen (Bkc)) 8 units SC TIDAC [facility] Last Admin: 10/28/17 08:28 Dose: 8 units Insulin Detemir (Levemir (Bkc)) 30 units SC BID [facility] Last Admin: 10/28/17 09:08 Dose: 30 units Magnesium Hydroxide (Milk Of Magnesia) 30 ml PO DAILY PRN PRN PRN Reason: Constipation Last Admin: 10/26/17 05:03 Dose: 30 ml Nutritional Formula (Lactose Free) (Glucerna Shake) 120 ml PO 4X/DAY [facility] Last Admin: 10/28/17 09:08 Dose: 120 ml Ondansetron HCl (Zofran) 4 mg IV Q8H PRN PRN PRN Reason: Nausea Pravastatin Sodium (Pravachol) 20 mg PO QHS [facility] Last Admin: 10/27/17 22:24 Dose: Not Given Sodium Chloride () 5 - 30 ml IV UD PRN PRN Reason: SALINE FLUSH Last Admin: 10/27/17 18:22 Dose: 10 ml Assessment/Plan Active and Suspected Problems Diabetic foot infection (Acute) Failure to thrive (Acute) Acute respiratory failure with hypoxia and hypercapnia (Acute) Patient is a 67-year-old gentleman with multiple comorbidities including morbid obesity with BMI of 55.6, bilateral lymphedema admitted with lower extremity wound infection. Cultures so far positive for MRSA, Klebsiella oxytoca and Proteus sp. 1. Bilateral lower extremity wound infection in the context of advanced lymphedema cultures positive forMRSA, Klebsiella oxytoca and Proteus sp. patient has been managed with vancomycin as well as meropenem. Patient has been seen in consultation by infectious disease PICC line was placed on 10/28/17. Consultation was also placed to podiatry medicine to assist with management 2. Acute hypercapnic respiratory failure secondary to patient's underlying obesity hypoventilation syndrome in addition to narcotics which patient was previously on. Patient was placed on noninvasive ventilation BiPAP with consultation placed a pulmonary medicine Patient was also deemed patient was also deemed to be a contraction alkalosis Lasix was therefore discontinued by pulmonary medicine 3. Metabolic encephalopathy secondary to #2 4. 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 Patient is on long-acting insulin dose did continue home dose with dose adjustment as needed in addition to Accu-Cheks before meals and at bedtime with sliding scale coverage 5. Hypertension-blood pressure controlled, home medications continued with dose adjustment as needed 6. Dyslipidemia-patient is on statin therapy, continued at home dose 7. Bilateral lower extremity lymphedema 8. Morbid obesity with BMI of 55.6 9. Obesity hypoventilation syndrome 10. Obstructive sleep apnea 11. Adult failure to thrive requested for PT OT eval as well as social media assistant to assist with discharge planning 12. DVT prophylaxis patient is on Lovenox dose adjusted for BMI Code Visit Inpatient E&M: [id number] [facility] L3
[2017-10-28 11:26] LABS: POSITIVE COUNT NO; POSITIVE DIFFERENTIAL NO; POSITIVE MORPHOLOGY NO
--- NOTE | 2017-10-28 11:34 | PN_ITS ---
Patient Problems: Active and Suspected Problems Diabetic foot infection (Acute) Failure to thrive (Acute) Acute respiratory failure with hypoxia and hypercapnia (Acute) Subjective: Patient is a 67-year-old gentleman with multiple comorbidities including morbid obesity with BMI of 55.6, bilateral lymphedema admitted with lower extremity wound infection. Cultures so far positive for MRSA, Klebsiella oxytoca and Proteus sp. Objective: GENERAL: cooperative HEENT: Clear conjunctiva, NECK; supple, normal thyroid, CHEST: diminished to auscultation bilaterally, HEART: Regular S1 S2, no audible murmurs ABDOMEN: soft, normoactive bowel sounds, RECTAL: deferred EXTREMITIES: Bilateral lymphedema BULK FLUIDS HANDLER: Awake, no lateralizing signs. SKIN: jose wrap both lower extremities Vitals/I&O's: Vital Signs Temp Pulse Resp BP Pulse Ox 96.7 F L 70 20 H 123/70 H 100 10/28/17 11:00 10/28/17 11:00 10/28/17 11:00 10/28/17 11:00 10/28/17 11:00 Oxygen Flow Rate 6 Oxygen Delivery Method Bi-pap Weight: 173.3 kg Body Mass Index (BMI) 57.4 Intake and Output for Last 24 Hours 10/26/17 10/27/17 10/28/17 23:59 23:59 23:59 Intake Total 3358 / 3358 1421 / 1421 877 / 877 Output Total 5405 / 5405 5450 / 5450 2049 / 2049 Balance -2047 / -2047 -4029 / -4029 -1173 / -1173 Microbiology Past 72 Hours 10/23/17 18:30 Tissue Ulcer - Leg Gram Stain - Final 10/23/17 18:30 Tissue Ulcer - Leg Wound Culture - Final Klebsiella oxytoca Proteus sp. Meth. resistant Staph. aureus 10/23/17 18:30 Tissue Ulcer - Leg Anaerobic Culture - Preliminary Checking for anaerobes, further studies to follow. Laboratory Results 10/27/17 11:32: POC Glucose 286 H 10/27/17 11:41: Specimen Type ART, Sample Site R Radial, pH 7.40, Bicarbonate Actual 48.1 H, POC Total CO2 > 50, Base Excess 23 H, O2 Saturation 97, O2 % 50, ABG pCO2 78.1 H*, ABG pO2 93, Min Test POS, Respiration Rate 12, O2 Delivery Device Bi / C PAP, EPAP 10, IPAP 16, Blood Gas Notified Whom CARMEN BAL, Blood Gas Notified Time 1145 10/27/17 11:45: Specimen Type Cancelled, Sample Site Cancelled, pH Cancelled, Bicarbonate Actual Cancelled, POC Total CO2 Cancelled, Base Excess Cancelled, O2 Saturation Cancelled, O2 % Cancelled, ABG pCO2 Cancelled, ABG pO2 Cancelled, Min Test Cancelled, Respiration Rate Cancelled, O2 Delivery Device Cancelled, Liter Flow Cancelled, Minute Volume Cancelled, Vent Mode Cancelled, Tidal Volume Cancelled, POC PEEP Cancelled, POC Pressure Suppt Cancelled, Pressure High Cancelled, Pressure Low Cancelled, Time High Cancelled, Time Low Cancelled , EPAP Cancelled, IPAP Cancelled, Blood Gas Notified Whom Cancelled, Blood Gas Notified Time Cancelled 10/27/17 16:00: POC Glucose 223 H 10/27/17 22:36: POC Glucose 170 H 10/28/17 03:20: POC Glucose 146 H 10/28/17 06:55: POC Glucose 120 H 10/28/17 07:05: Specimen Type ART, Sample Site R BRACHIAL, pH 7.40, Bicarbonate Actual 52.7 H, POC Total CO2 > 50, Base Excess 28 H, O2 Saturation 97, O2 % 50, ABG pCO2 85.1 H*, ABG pO2 104 H, Min Test POS, O2 Delivery Device Bi Pap, EPAP 10, IPAP 20, Blood Gas Notified Whom CARMEN BAL, Blood Gas Notified Time 710 10/28/17 11:05: WBC Pending, RBC Pending, Hgb Pending, Hct Pending, MCV Pending , MCH Pending, MCHC Pending, RDW Pending, RDW Differential Pending, Plt Count Pending, Neut % (Auto) Pending, Absolute Neuts (auto) Pending, Total Counted Pending 10/28/17 11:05: Sodium Pending, Potassium Pending, Chloride Pending, Carbon Dioxide Pending, Anion Gap Pending, BUN Pending, Creatinine Pending, Est GFR ( MDRD) Af Amer Pending, Est GFR (MDRD) Non-Af Pending, BUN/Creatinine Ratio Pending, Glucose Pending, Calcium Pending Current Medications Acetaminophen (Tylenol) 650 mg PO Q6H PRN PRN PRN Reason: Mild Pain (scale 0-3)/T>100.7 Last Admin: 10/27/17 18:23 Dose: 650 mg Albuterol Sulfate (Ventolin Aerosols) 2.5 mg INHALATION Q2H PRN PRN PRN Reason: SHORTNESS OF BREATH/ WHEEZING Last Admin: 10/27/17 15:53 Dose: 2.5 mg Aspirin (Aspirin) 325 mg PO DAILY@0800 [facility] Last Admin: 10/28/17 08:27 Dose: 325 mg Atenolol (Tenormin (Beta Patrick)) 100 mg PO DAILY [facility] Last Admin: 10/28/17 09:07 Dose: 100 mg Calcitriol (Rocaltrol) 0.5 mcg PO DAILY [facility] Last Admin: 10/28/17 09:07 Dose: 0.5 mcg Dextrose (D50w Syringe) 0 gm IV X1 PRN; Protocol PRN Reason: Hypoglycemia Last Admin: 10/23/17 21:56 Dose: 25 gm Enoxaparin Sodium (Lovenox) 40 mg SC DAILY@1000 [facility] Last Admin: 10/28/17 09:08 Dose: 40 mg Escitalopram Oxalate (Lexapro) 10 mg PO DAILY [facility] Last Admin: 10/28/17 09:08 Dose: 10 mg Furosemide (Lasix) 40 mg IV BID@1000,1800 [facility] Last Admin: 10/28/17 09:08 Dose: 40 mg Glucagon () 1 mg IM .X1 PRN PRN Reason: Hypoglycemia Sodium Chloride () 250 mls @ 15 mls/hr IV .[id number] PRN PRN Reason: SALINE FLUSH Meropenem 500 mg/ Sodium (Chloride) 60 mls @ 100 mls/hr IV Q6 [facility] Last Admin: 10/28/17 05:18 Dose: 100 mls/hr Vancomycin HCl (Vancomycin) 1,000 mg in 200 mls @ 200 mls/hr IV Q12H [facility] Last Admin: 10/28/17 09:07 Dose: 200 mls/hr Insulin Aspart (Novolog Flexpen (Bkc)) 0 units SC ACHS & 3AM KARLEE PRN Reason: Protocol Last Admin: 10/28/17 07:52 Dose: Not Given Insulin Aspart (Novolog Flexpen (Bkc)) 8 units SC TIDAC [facility] Last Admin: 10/28/17 08:28 Dose: 8 units Insulin Detemir (Levemir (Bkc)) 30 units SC BID [facility] Last Admin: 10/28/17 09:08 Dose: 30 units Magnesium Hydroxide (Milk Of Magnesia) 30 ml PO DAILY PRN PRN PRN Reason: Constipation Last Admin: 10/26/17 05:03 Dose: 30 ml Nutritional Formula (Lactose Free) (Glucerna Shake) 120 ml PO 4X/DAY [facility] Last Admin: 10/28/17 09:08 Dose: 120 ml Ondansetron HCl (Zofran) 4 mg IV Q8H PRN PRN PRN Reason: Nausea Pravastatin Sodium (Pravachol) 20 mg PO QHS [facility] Last Admin: 10/27/17 22:24 Dose: Not Given Sodium Chloride () 5 - 30 ml IV UD PRN PRN Reason: SALINE FLUSH Last Admin: 10/27/17 18:22 Dose: 10 ml Assessment/Plan Active and Suspected Problems Diabetic foot infection (Acute) Failure to thrive (Acute) Acute respiratory failure with hypoxia and hypercapnia (Acute) Patient is a 67-year-old gentleman with multiple comorbidities including morbid obesity with BMI of 55.6, bilateral lymphedema admitted with lower extremity wound infection. Cultures so far positive for MRSA, Klebsiella oxytoca and Proteus sp. 1. Bilateral lower extremity wound infection in the context of advanced lymphedema cultures positive forMRSA, Klebsiella oxytoca and Proteus sp. patient has been managed with vancomycin as well as meropenem. Patient has been seen in consultation by infectious disease PICC line was placed on . Consultation was also placed to podiatry medicine to assist with management 2. Acute hypercapnic respiratory failure secondary to patient's underlying obesity hypoventilation syndrome in addition to narcotics which patient was previously on. Patient was placed on noninvasive ventilation BiPAP with consultation placed a pulmonary medicine Patient was also deemed patient was also deemed to be a contraction alkalosis Lasix was therefore discontinued by pulmonary medicine 3. Metabolic encephalopathy secondary to #2 4. 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 Patient is on long-acting insulin dose did continue home dose with dose adjustment as needed in addition to Accu-Cheks before meals and at bedtime with sliding scale coverage 5. Hypertension-blood pressure controlled, home medications continued with dose adjustment as needed 6. Dyslipidemia-patient is on statin therapy, continued at home dose 7. Bilateral lower extremity lymphedema 8. Morbid obesity with BMI of 55.6 9. Obesity hypoventilation syndrome 10. Obstructive sleep apnea 11. Adult failure to thrive requested for PT OT eval as well as social media assistant to assist with discharge planning 12. DVT prophylaxis patient is on Lovenox dose adjusted for BMI Code Visit Inpatient E&M: [id number] [facility]
--- NOTE | 2017-10-28 11:47 | PCM.CONS.GEN ---
Problem List (1) Acute respiratory failure with hypoxia and hypercapnia Status: Acute (2) Diabetic foot infection Status: Acute (3) HTN (hypertension) Status: Chronic (4) Super obesity Status: Chronic (5) Lymphedema of both lower extremities Status: Chronic (6) Dyslipidemia Status: Chronic (7) GERD (gastroesophageal reflux disease) Status: Chronic (8) H/O poor personal hygiene Status: Chronic (9) Failure to thrive Status: Acute (10) Type 2 diabetes mellitus with diabetic polyneuropathy Status: Chronic (11) Ulcer of right lower extremity with fat layer exposed Status: Chronic (12) Ulcer of left lower extremity with fat layer exposed Status: Chronic Reason for Consult Date of Consultation: 10/28/17 Reason for Consultation: respiratory failure History of Present Illness: The patient is a 67 year old M with a past medical history as below who presented to the emergency room on 10/23/17 status post fall at home. He reportedly was lying on the floor about 3 hours until his friend found him. He denied any injury, just was unable to get up and ambulate into the house. He typically does not use any assistive devices with ambulation and lives alone. He denied any recent fevers, chills, nausea, vomiting, chest pain, palpitations, or increased shortness of breath. He does note he has dyspnea on exertion at baseline, likely secondary to his weight and sedentary lifestyle. He did have 1 or 2 days of diarrhea, but none since. Patient apparently told staff that he has not showered in a very long time, cannot recall the last time he has washed up. He does have very poor hygiene. Patient was initially on room air and his oxygen requirements have steadily increased since admission. He is now requiring BiPAP most of the day and night since 10/27 at 0700. Initial ABG on 10/27 showed CO2 retention and elevated bicarb, repeat ABG on 10/28 showed worsening CO2 retention. He is very anxious and claustrophobic and does not tolerate BiPAP well. Initial chest x-ray showed mild degree of increased markings at the lung bases suggestive of mild basilar atelectasis. Repeat chest x-ray in 10/27 showed bilateral infiltrates/edema, worse in the right lower lung. There was borderline cardiomegaly. No demonstrated pleural abnormality. Echocardiogram on 10/24 showed mild concentric LVH, estimated EF of 65%, moderately dilated right ventricle, moderately enlarged left atrium, mild mitral valve stenosis, trivial TVI, RVSP was estimated at 45 mmHg. There is also mild restriction of aortic valve with mild aortic stenosis. Patient had an initial leukocytosis of 16,000. He was mildly anemic at 11.6. Chemistry was remarkable for glucose of 55, A1c of 8.4, calcium of 8.0. Total creatinine kinase was mildly elevated at 634 and CRP elevated at 88.9. MRSA PCR was positive. Patient was initiated on antibiotics. Wound cultures showed Klebsiella oxytoca, Proteus species, and MRSA. Blood cultures showed no growth. White count has now normalized and patient remains hemodynamically stable. He has had some intermittent tachycardia and his blood pressure is elevated today. The patient denies any previous lung problems. He is a former smoker of 2 pack a day for 20 years ([id number] history). He has never seen a senior loss control specialist. He does have issues with anxiety and depression. 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 He denies any known exposure to tuberculosis, asbestos, or other toxins. He currently complains of being uncomfortable, not necessarily pain. He is very anxious and wants to get up out of bed. He does complain of shortness of breath and has been on nasal cannula at 6 L for the last 20 minutes to eat his lunch. He denies any hemoptysis. No history of cancer. He is a poor historian. Patient has remained afebrile. Podiatry and infectious disease are following and guiding antibiotics and wound care. Past Medical History Past Medical History (Chronic Problems): Chronic Problems Diabetes (Chronic) HTN (hypertension) (Chronic) Super obesity (Chronic) Lymphedema of both lower extremities (Chronic) Dyslipidemia (Chronic) GERD (gastroesophageal reflux disease) (Chronic) H/O poor personal hygiene (Chronic) Type 2 diabetes mellitus with diabetic polyneuropathy (Chronic) Ulcer of right lower extremity with fat layer exposed (Chronic) Ulcer of left lower extremity with fat layer exposed (Chronic) Infection of left foot (Chronic) Allergies JOSHUA Inhibitors Allergy (Verified 08/31/14 16:29) Swelling cephalexin monohydrate [From Keflex] Allergy (Verified 08/31/14 16:29) Other Penicillins Allergy (Verified 08/31/14 16:29) Rash ibuprofen Adverse Reaction (Verified 08/31/14 16:29) Other naproxen Adverse Reaction (Verified 08/31/14 16:29) Upset Stomach Home Medications: Ambulatory Orders Medication Instructions Recorded Atenolol 50 mg PO DAILY 08/31/14 Calcitriol 0.5 mcg PO DAILY 08/31/14 Escitalopram Oxalate [Lexapro] 10 mg PO DAILY 08/31/14 Furosemide 40 mg PO BID 08/31/14 Pravastatin [Pravachol] 20 mg PO QHS 08/31/14 Acetaminophen [Tylenol Tablet] 650 mg PO Q6H PRN PRN #30 tablet 09/03/14 Aspirin [Aspirin, Baby] 81 mg PO DAILY@0800 10/23/17 Famotidine [Pepcid] 40 mg PO DAILY 10/23/17 Insulin NPH Human Isophane 90 unit SQ BID 10/23/17 [Novolin N] Surgical History: cholecystectomy Psychiatric History: Depression Lives: Alone Smoking Status: Former smoker - 73-ud-be-history Tobacco Use: Non-smoker Alcohol: None Drugs: None - *Family History Maternal History Items: No pertinent history, - - No heart disease Review of Systems Constitutional: Reports: Weakness, Fatigue. Denies: Anorexia, Chills, Fever, Night Sweats, Malaise, Weight Change Eyes: Denies: Vision Change HEENT: Reports: Post Nasal Drip. Denies: Difficulty Swallowing, Nasal bleeding, Nasal Congestion, Sinus Congestion, Sinus Drainage, Sore Throat Cardiovascular: Reports: Edema, Orthopnea. Denies: Chest Pain, Chest Tightness, Light Headedness, Palpitations, Paroxysmal Noc. Dyspnea, Syncope Respiratory: Reports: Cough - Productive yellow sputum, Shortness of breath at rest, Shortness of breath upon exertion, Sputum production. Denies: Hemoptysis, Wheezing Gastrointestinal: Denies: Abdominal Pain, Constipation, Diarrhea, Dyspepsia, Hematemesis, Hematochezia, Nausea, Melena, Vomiting Genitourinary: Reports: Frequency. Denies: Dysuria, Hematuria, Nocturia Musculoskeletal: Reports: - - uncomfortable. Denies: Back Pain, Muscle pain Skin: Reports: Wounds - Bilateral lower extremities--see wound pictures on medical record Neurological: Reports: Balance problems, - - Chronic peripheral neuropathy. Denies: Slurred speech, Confusion, Focal weakness, Tremor, Seizures Endocrine: Denies: Change in Body Habitus, Polydipsia, Polyuria Hematologic/ Lymphatic: Denies: Adenopathy, Anemia, Easy Bruising, Easy Bleeding, Hx of blood clot Patient Problems: Active and Suspected Problems Diabetic foot infection (Acute) Failure to thrive (Acute) Acute respiratory failure with hypoxia and hypercapnia (Acute) Subjective: Patient was seen and examined. Reports he is uncomfortable and wants to get out of here. States that nothing is helping. Complains of shortness of breath, currently on 6 L of oxygen as he is on a break from BiPAP to eat his lunch. Denies any fever or chills. Has a productive cough of yellow sputum, which he showed me. Objective: Clinical Impression(s) from Imaging Studies Chest X-Ray 10/23/17 13:57 IMPRESSION: Mild degree of increased markings at the lung bases suggestive of mild basilar atelectasis. Electronically Signed: Tab Blanco MD at 14:40 EST Tel [phone], Service support , Foot X-Ray 10/23/17 16:49 IMPRESSION: Negative for a definitive acute bone or joint findings noting that the metatarsophalangeal joints and many of the phalanges are not adequately visualized as outlined above. Marked soft tissue swelling. Electronically Signed: Consuelo Thomas MD at 19:04 EST , Service support , Foot X-Ray 10/23/17 16:55 IMPRESSION: Marked soft tissue swelling without a definite underlying bone or joint abnormality. The phalanges and particularly are poorly visualized in area secondary to flexion, foreshortening and overlapping. The proximal phalanges of the second, third, fourth and especially the fifth toes are very poorly visualized and cannot be described as normal. The middle phalanges are grossly normal. The distal phalanges are all normal. Electronically Signed: Consuelo Thomas MD at 17:35 EST , Service support , Lower Extremity CT 10/23/17 18:36 IMPRESSION: Severe diffuse skin thickening and subcutaneous edema as detailed above. No evidence of drainable abscess. at 0035 Reported and signed by: Cynthia Phillips MD Electronically Signed: Cynthia Phillips MD at 23:34 EST Tel , Service support , Tibia/Fibula X-Ray 10/23/17 23:30 IMPRESSION: Degenerative changes and diffuse soft tissue swelling. No evidence of fracture or erosion. at 0028 Reported and signed by: Cynthia Phillips MD Electronically Signed: Cynthia Phillips MD at 23:26 EST Tel , Service support , Shoulder X-Ray 10/26/17 13:44 IMPRESSION: Degenerative changes of the left shoulder as described above. Electronically Signed: Denis Silva MD at 15:47 EST Tel , Service support , Shoulder X-Ray 10/26/17 13:50 IMPRESSION: Degenerative changes of the right shoulder as described above. Electronically Signed: Denis Silva MD at 15:46 EST Tel , Service support , Chest X-Ray 10/27/17 06:42 IMPRESSION: Bilateral infiltrates/edema worse in the right lower lung. 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 Skin: Ulcer/ Wound - bilat LEs and feet, covered with dressings, wound care following Musculoskeletal: Tenderness - legs Lymphatic: No Cervical, Supraclavicular, or Inguinal Adenopathy Neurological: Cranial nerves II-XII grossly intact, Neuro grossly intact, - - strength decreased, uniform Psych/Mental Status: Anxious, Depressed, Restless Vital Signs Temp Pulse Resp BP Pulse Ox 96.7 F L 70 20 H 123/70 H 100 10/28/17 11:00 10/28/17 11:00 10/28/17 11:00 10/28/17 11:00 10/28/17 11:00 Oxygen Flow Rate 6 Oxygen Delivery Method Bi-pap Weight: 382 lb 0.977 oz Body Mass Index (BMI) 57.4 Intake and Output for Last 24 Hours 10/26/17 10/27/17 10/28/17 23:59 23:59 23:59 Intake Total 3358 / 3358 1421 / 1421 877 / 877 Output Total 5405 / 5405 5450 / 5450 2049 / 2049 Balance -2047 / -2047 -4029 / -4029 -1173 / -1173 Microbiology Past 72 Hours 10/23/17 18:30 Gram Stain - Final Tissue Ulcer - Leg Wound Culture - Final Klebsiella oxytoca Proteus sp. Meth. resistant Staph. aureus Anaerobic Culture - Preliminary Checking for anaerobes, further studies to follow. Laboratory Tests Past 24 Hrs 10/27/17 10/27/17 10/28/17 11:41 11:45 07:05 WBC RBC Hgb Hct MCV MCH MCHC RDW RDW Differential Plt Count MPV Immature Gran % (Auto) Neut % (Auto) Lymph % (Auto) [place] % (Auto) Eos % (Auto) Baso % (Auto) Absolute Neuts (auto) Absolute Lymphs (auto) Total Counted Specimen Type ART Cancelled ART Sample Site R Radial Cancelled R BRACHIAL pH 7.40 Cancelled 7.40 Bicarbonate Actual 48.1 H Cancelled 52.7 H POC Total CO2 > 50 Cancelled > 50 Base Excess 23 H Cancelled 28 H O2 Saturation 97 Cancelled 97 O2 % 50 Cancelled 50 ABG pCO2 78.1 H* Cancelled 85.1 H* ABG pO2 93 Cancelled 104 H Min Test POS Cancelled POS Respiration Rate 12 Cancelled O2 Delivery Device Bi / C PAP Cancelled Bi Pap Liter Flow Cancelled Minute Volume Cancelled Vent Mode Cancelled Tidal Volume Cancelled POC PEEP Cancelled POC Pressure Suppt Cancelled Pressure High Cancelled Pressure Low Cancelled Time High Cancelled Time Low Cancelled EPAP 10 Cancelled 10 IPAP 16 Cancelled 20 Blood Gas Notified Whom HOSP Cancelled HOSP Blood Gas Notified Time 1145 Cancelled 710 Sodium Potassium Chloride Carbon Dioxide Anion Gap BUN Creatinine Est GFR (MDRD) Af Amer Est GFR (MDRD) Non-Af BUN/Creatinine Ratio Glucose Calcium 10/28/17 10/28/17 11:05 11:05 WBC 8.6 RBC 3.67 L Hgb 11.0 L Hct 37.2 L MCV 101.4 H MCH 30.0 MCHC 29.6 L RDW 14.7 H RDW Differential 53.1 H Plt Count 186 MPV 9.9 Immature Gran % (Auto) 0.200 Neut % (Auto) 76.0 H Lymph % (Auto) 9.6 L [place] % (Auto) 13.5 H Eos % (Auto) 0.5 Baso % (Auto) 0.2 Absolute Neuts (auto) 6.5 Absolute Lymphs (auto) 0.83 Total Counted Not Reportable Specimen Type Sample Site pH Bicarbonate Actual POC Total CO2 Base Excess O2 Saturation O2 % ABG pCO2 ABG pO2 Min Test Respiration Rate O2 Delivery Device Liter Flow Minute Volume Vent Mode Tidal Volume POC PEEP POC Pressure Suppt Pressure High Pressure Low Time High Time Low EPAP IPAP Blood Gas Notified Whom Blood Gas Notified Time Sodium Pending Potassium Pending Chloride Pending Carbon Dioxide Pending Anion Gap Pending BUN Pending Creatinine Pending Est GFR (MDRD) Af Amer Pending Est GFR (MDRD) Non-Af Pending BUN/Creatinine Ratio Pending Glucose Pending Calcium Pending POC Glucose 10/28/17 10/28/17 10/27/17 06:55 03:20 22:36 POC Glucose 120 H 146 H 170 H 10/27/17 16:00 POC Glucose 223 H Assessment/Plan Active and Suspected Problems Diabetic foot infection (Acute) Failure to thrive (Acute) Acute respiratory failure with hypoxia and hypercapnia (Acute) RECOMMENDATIONS 1. Continue BiPAP with breaks as tolerated, wean FiO2 2. Increase activity as tolerated 3. Continue aerosols on as needed basis 4. De-escalate diuretic therapy 5. Antibiotic therapy per ID recommendations 6. Continue DVT prophylaxis 7. Ambulatory pulse ox prior to discharge, if able 8. Wound care per podiatry recommendations IMPRESSIONS 1. Acute respiratory failure with hypoxia and hypercapnia Patient does not have a home oxygen requirement. Presented with tachycardia in the 140s, was maintaining saturations on room air at 99%. Eventually became hypoxic with escalating daily oxygen requirements from 2 L to BiPAP. ABG obtained on 10/27 and showed a pH 7.4, bicarb 48, PCO2 78 with normal oxygen saturation. Initial BiPAP settings 16/10 with a rate of 12 and 60% FiO2. Has been weaned to 40% FiO2 20/10. Repeat ABG today showed again pH is 7.4, bicarb 52.7, increased CO2 at 85, and PO2 of 104. Patient has been diuresed with IV Lasix and his serum bicarb has steadily increased to 43, likely leading to metabolic derangements. Would continue BiPAP for now and wean FiO2 as tolerated. Patient may have breaks from BiPAP. May require de-escalation of his diuretics. Patient seems very anxious and uncomfortable, would likely benefit from antianxiety medication, however would put at risk for oversedation and worsening of respiratory status. Will need to have BiPAP on if he receives any sedating medications. 2. Suspected sleep apnea Patient with multiple comorbidities, admits to daytime somnolence, snoring, and has been told in the past he has quit breathing in his sleep. He is not interested in pursuing any workup as an outpatient as he is claustrophobic and does not like to wear noninvasive positive pressure therapy. He can be offered follow-up appointment if he is in agreement for outpatient testing. 3. Type II DM/diabetic foot infection/GERD/chronic lymphedema/superobesity/hypertension/poor hygiene Complicates care, management, recovery, and prognosis. Management per hospitalist. Wound showing Klebsiella, MRSA, Proteus. Blood cultures were negative. ID is following, as well as podiatry. Plan is for patient to go to [facility] on discharge when stable. Thank you for the opportunity to participate in this patient's care, please do not hesitate to contact us with any further questions or concerns. This note was generated with [employer] dictation software. It may contain incorrect words, spelling, and punctuation that were not noted in checking the note before signing.
[2017-10-28 11:50] LABS: Anion Gap 5 (5-15); BUN 20 mg/dL (7-18); BUN/Creat Ratio 28.9 RATIO (10-20); Calcium,Total 7.7 mg/dL (8.5-10.1); Chloride 87 mmol/L (98-107); Creatinine, Serum 0.69 mg/dL (0.70-1.30); EST Glomerular Filtration Rate 122 mL/min (>60); Est Glom Filt Rate - Afr Amer 147 mL/min (>60); Estimated Creatinine Clearance 72.66 ml/min; Glucose 240 mg/dL (70-110); Potassium 3.5 mmol/L (3.5-5.1); Sodium Level 135 mmol/L (136-145)
[2017-10-28 11:51] LABS: Bedside Glucose 227 mg/dL (70-110)
--- NOTE | 2017-10-28 12:01 | CON.PCM_ITS ---
Problem List (1) Acute respiratory failure with hypoxia and hypercapnia Status: Acute (2) Diabetic foot infection Status: Acute (3) HTN (hypertension) Status: Chronic (4) Super obesity Status: Chronic (5) Lymphedema of both lower extremities Status: Chronic (6) Dyslipidemia Status: Chronic (7) GERD (gastroesophageal reflux disease) Status: Chronic (8) H/O poor personal hygiene Status: Chronic (9) Failure to thrive Status: Acute (10) Type 2 diabetes mellitus with diabetic polyneuropathy Status: Chronic (11) Ulcer of right lower extremity with fat layer exposed Status: Chronic (12) Ulcer of left lower extremity with fat layer exposed Status: Chronic Reason for Consult Date of Consultation: 10/28/17 Reason for Consultation: respiratory failure History of Present Illness: The patient is a 67 year old M with a past medical history as below who presented to the emergency room on 10/23/17 status post fall at home. He reportedly was lying on the floor about 3 hours until his friend found him. He denied any injury, just was unable to get up and ambulate into the house. He typically does not use any assistive devices with ambulation and lives alone. He denied any recent fevers, chills, nausea, vomiting, chest pain, palpitations , or increased shortness of breath. He does note he has dyspnea on exertion at baseline, likely secondary to his weight and sedentary lifestyle. He did have 1 or 2 days of diarrhea, but none since. Patient apparently told staff that he has not showered in a very long time, cannot recall the last time he has washed up. He does have very poor hygiene. Patient was initially on room air and his oxygen requirements have steadily increased since admission. He is now requiring BiPAP most of the day and night since 10/27 at 0700. Initial ABG on showed CO2 retention and elevated bicarb, repeat ABG on 10/28 showed worsening CO2 retention. He is very anxious and claustrophobic and does not tolerate BiPAP well. Initial chest x-ray showed mild degree of increased markings at the lung bases suggestive of mild basilar atelectasis. Repeat chest x-ray in 10/27 showed bilateral infiltrates/edema, worse in the right lower lung. There was borderline cardiomegaly. No demonstrated pleural abnormality. Echocardiogram on 10/24 showed mild concentric LVH, estimated EF of 65%, moderately dilated right ventricle, moderately enlarged left atrium, mild mitral valve stenosis, trivial TVI, RVSP was estimated at 45 mmHg. There is also mild restriction of aortic valve with mild aortic stenosis. Patient had an initial leukocytosis of 16,000. He was mildly anemic at 11.6. Chemistry was remarkable for glucose of 55, A1c of 8.4, calcium of 8.0. Total creatinine kinase was mildly elevated at 634 and CRP elevated at 88.9. MRSA PCR was positive. Patient was initiated on antibiotics. Wound cultures showed Klebsiella oxytoca, Proteus species, and MRSA. Blood cultures showed no growth. White count has now normalized and patient remains hemodynamically stable. He has had some intermittent tachycardia and his blood pressure is elevated today. The patient denies any previous lung problems. He is a former smoker of 2 pack a day for 20 years ([id number] history). He has never seen a commissary clerk. He does have issues with anxiety and depression. 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 He denies any known exposure to tuberculosis, asbestos, or other toxins. He currently complains of being uncomfortable, not necessarily pain. He is very anxious and wants to get up out of bed. He does complain of shortness of breath and has been on nasal cannula at 6 L for the last 20 minutes to eat his lunch. He denies any hemoptysis. No history of cancer. He is a poor historian. Patient has remained afebrile. Podiatry and infectious disease are following and guiding antibiotics and wound care. Past Medical History Past Medical History (Chronic Problems): Chronic Problems Diabetes (Chronic) HTN (hypertension) (Chronic) Super obesity (Chronic) Lymphedema of both lower extremities (Chronic) Dyslipidemia (Chronic) GERD (gastroesophageal reflux disease) (Chronic) H/O poor personal hygiene (Chronic) Type 2 diabetes mellitus with diabetic polyneuropathy (Chronic) Ulcer of right lower extremity with fat layer exposed (Chronic) Ulcer of left lower extremity with fat layer exposed (Chronic) Infection of left foot (Chronic) Allergies JOSHUA Inhibitors Allergy (Verified 08/31/14 16:29) Swelling cephalexin monohydrate [From Keflex] Allergy (Verified 08/31/14 16:29) Other Penicillins Allergy (Verified 08/31/14 16:29) Rash ibuprofen Adverse Reaction (Verified 08/31/14 16:29) Other naproxen Adverse Reaction (Verified 08/31/14 16:29) Upset Stomach Home Medications: Ambulatory Orders Medication Instructions Recorded Atenolol 50 mg PO DAILY 08/31/14 Calcitriol 0.5 mcg PO DAILY 08/31/14 Escitalopram Oxalate [Lexapro] 10 mg PO DAILY 08/31/14 Furosemide 40 mg PO BID 08/31/14 Pravastatin [Pravachol] 20 mg PO QHS 08/31/14 Acetaminophen [Tylenol Tablet] 650 mg PO Q6H PRN PRN #30 tablet 09/03/14 Aspirin [Aspirin, Baby] 81 mg PO DAILY@0800 10/23/17 Famotidine [Pepcid] 40 mg PO DAILY 10/23/17 Insulin NPH Human Isophane 90 unit SQ BID 10/23/17 [Novolin N] Surgical History: cholecystectomy Psychiatric History: Depression Lives: Alone Smoking Status: Former smoker - 72-[id number]-history Tobacco Use: Non-smoker Alcohol: None Drugs: None - *Family History Maternal History Items: No pertinent history, - - No heart disease Review of Systems Constitutional: Reports: Weakness, Fatigue. Denies: Anorexia, Chills, Fever, Night Sweats, Malaise, Weight Change Eyes: Denies: Vision Change HEENT: Reports: Post Nasal Drip. Denies: Difficulty Swallowing, Nasal bleeding , Nasal Congestion, Sinus Congestion, Sinus Drainage, Sore Throat Cardiovascular: Reports: Edema, Orthopnea. Denies: Chest Pain, Chest Tightness , Light Headedness, Palpitations, Paroxysmal Noc. Dyspnea, Syncope Respiratory: Reports: Cough - Productive yellow sputum, Shortness of breath at rest, Shortness of breath upon exertion, Sputum production. Denies: Hemoptysis , Wheezing Gastrointestinal: Denies: Abdominal Pain, Constipation, Diarrhea, Dyspepsia, Hematemesis, Hematochezia, Nausea, Melena, Vomiting Genitourinary: Reports: Frequency. Denies: Dysuria, Hematuria, Nocturia Musculoskeletal: Reports: - - uncomfortable. Denies: Back Pain, Muscle pain Skin: Reports: Wounds - Bilateral lower extremities--see wound pictures on medical record Neurological: Reports: Balance problems, - - Chronic peripheral neuropathy. Denies: Slurred speech, Confusion, Focal weakness, Tremor, Seizures Endocrine: Denies: Change in Body Habitus, Polydipsia, Polyuria Hematologic/ Lymphatic: Denies: Adenopathy, Anemia, Easy Bruising, Easy Bleeding , Hx of blood clot Patient Problems: Active and Suspected Problems Diabetic foot infection (Acute) Failure to thrive (Acute) Acute respiratory failure with hypoxia and hypercapnia (Acute) Subjective: Patient was seen and examined. Reports he is uncomfortable and wants to get out of here. States that nothing is helping. Complains of shortness of breath , currently on 6 L of oxygen as he is on a break from BiPAP to eat his lunch. Denies any fever or chills. Has a productive cough of yellow sputum, which he showed me. Objective: Clinical Impression(s) from Imaging Studies Chest X-Ray 10/23/17 13:57 IMPRESSION: Mild degree of increased markings at the lung bases suggestive of mild basilar atelectasis. Electronically Signed: Tab Blanco MD at 14:40 EST Tel [phone], Service support , Foot X-Ray 10/23/17 16:49 IMPRESSION: Negative for a definitive acute bone or joint findings noting that the metatarsophalangeal joints and many of the phalanges are not adequately visualized as outlined above. Marked soft tissue swelling. Electronically Signed: Consuelo Thomas MD at 19:04 EST , Service support , Foot X-Ray 10/23/17 16:55 IMPRESSION: Marked soft tissue swelling without a definite underlying bone or joint abnormality. The phalanges and particularly are poorly visualized in area secondary to flexion, foreshortening and overlapping. The proximal phalanges of the second, third, fourth and especially the fifth toes are very poorly visualized and cannot be described as normal. The middle phalanges are grossly normal. The distal phalanges are all normal. Electronically Signed: Consuelo Thomas MD at 17:35 EST , Service support , Lower Extremity CT 10/23/17 18:36 IMPRESSION: Severe diffuse skin thickening and subcutaneous edema as detailed above. No evidence of drainable abscess. at 0035 Reported and signed by: Cynthia Phillips MD Electronically Signed: Cynthia Phillips MD at 23:34 EST Tel , Service support , Tibia/Fibula X-Ray 10/23/17 23:30 IMPRESSION: Degenerative changes and diffuse soft tissue swelling. No evidence of fracture or erosion. at 0028 Reported and signed by: Cynthia Phillips MD Electronically Signed: Cynthia Phillips MD at 23:26 EST Tel , Service support , Shoulder X-Ray 10/26/17 13:44 IMPRESSION: Degenerative changes of the left shoulder as described above. Electronically Signed: Denis Silav MD at 15:47 EST Tel , Service support , Shoulder X-Ray 10/26/17 13:50 IMPRESSION: Degenerative changes of the right shoulder as described above. Electronically Signed: Denis Silva MD at 15:46 EST Tel , Service support , Chest X-Ray 10/27/17 06:42 IMPRESSION: Bilateral infiltrates/edema worse in the right lower lung. 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 edema Skin: Ulcer/ Wound - bilat LEs and feet, covered with dressings, wound care following Musculoskeletal: Tenderness - legs Lymphatic: No Cervical, Supraclavicular, or Inguinal Adenopathy Neurological: Cranial nerves II-XII grossly intact, Neuro grossly intact, - - strength decreased, uniform Psych/Mental Status: Anxious, Depressed, Restless Vital Signs Temp Pulse Resp BP Pulse Ox 96.7 F L 70 20 H 123/70 H 100 10/28/17 11:00 10/28/17 11:00 10/28/17 11:00 10/28/17 11:00 10/28/17 11:00 Oxygen Flow Rate 6 Oxygen Delivery Method Bi-pap Weight: 382 lb 0.977 oz Body Mass Index (BMI) 57.4 Intake and Output for Last 24 Hours 10/26/17 10/27/17 10/28/17 23:59 23:59 23:59 Intake Total 3358 / 3358 1421 / 1421 877 / 877 Output Total 5405 / 5405 5450 / 5450 2049 / 2049 Balance -2047 / -2047 -4029 / -4029 -1173 / -1173 Microbiology Past 72 Hours 10/23/17 18:30 Gram Stain - Final Tissue Ulcer - Leg Wound Culture - Final Klebsiella oxytoca Proteus sp. Meth. resistant Staph. aureus Anaerobic Culture - Preliminary Checking for anaerobes, further studies to follow. Laboratory Tests Past 24 Hrs 10/27/17 10/27/17 10/28/17 11:41 11:45 07:05 WBC RBC Hgb Hct MCV MCH MCHC RDW RDW Differential Plt Count MPV Immature Gran % (Auto) Neut % (Auto) Lymph % (Auto) [place] % (Auto) Eos % (Auto) Baso % (Auto) Absolute Neuts (auto) Absolute Lymphs (auto) Total Counted Specimen Type ART Cancelled ART Sample Site R Radial Cancelled R BRACHIAL pH 7.40 Cancelled 7.40 Bicarbonate Actual 48.1 H Cancelled 52.7 H POC Total CO2 > 50 Cancelled > 50 Base Excess 23 H Cancelled 28 H O2 Saturation 97 Cancelled 97 O2 % 50 Cancelled 50 ABG pCO2 78.1 H* Cancelled 85.1 H* ABG pO2 93 Cancelled 104 H Min Test POS Cancelled POS Respiration Rate 12 Cancelled O2 Delivery Device Bi / C PAP Cancelled Bi Pap Liter Flow Cancelled Minute Volume Cancelled Vent Mode Cancelled Tidal Volume Cancelled POC PEEP Cancelled POC Pressure Suppt Cancelled Pressure High Cancelled Pressure Low Cancelled Time High Cancelled Time Low Cancelled EPAP 10 Cancelled 10 IPAP 16 Cancelled 20 Blood Gas Notified Whom HOSP Cancelled HOSP Blood Gas Notified Time 1145 Cancelled 710 Sodium Potassium Chloride Carbon Dioxide Anion Gap BUN Creatinine Est GFR (MDRD) Af Amer Est GFR (MDRD) Non-Af BUN/Creatinine Ratio Glucose Calcium 10/28/17 10/28/17 11:05 11:05 WBC 8.6 RBC 3.67 L Hgb 11.0 L Hct 37.2 L MCV 101.4 H MCH 30.0 MCHC 29.6 L RDW 14.7 H RDW Differential 53.1 H Plt Count 186 MPV 9.9 Immature Gran % (Auto) 0.200 Neut % (Auto) 76.0 H Lymph % (Auto) 9.6 L [place] % (Auto) 13.5 H Eos % (Auto) 0.5 Baso % (Auto) 0.2 Absolute Neuts (auto) 6.5 Absolute Lymphs (auto) 0.83 Total Counted Not Reportable Specimen Type Sample Site pH Bicarbonate Actual POC Total CO2 Base Excess O2 Saturation O2 % ABG pCO2 ABG pO2 Min Test Respiration Rate O2 Delivery Device Liter Flow Minute Volume Vent Mode Tidal Volume POC PEEP POC Pressure Suppt Pressure High Pressure Low Time High Time Low EPAP IPAP Blood Gas Notified Whom Blood Gas Notified Time Sodium Pending Potassium Pending Chloride Pending Carbon Dioxide Pending Anion Gap Pending BUN Pending Creatinine Pending Est GFR (MDRD) Af Amer Pending Est GFR (MDRD) Non-Af Pending BUN/Creatinine Ratio Pending Glucose Pending Calcium Pending POC Glucose 10/28/17 10/28/17 10/27/17 06:55 03:20 22:36 POC Glucose 120 H 146 H 170 H 10/27/17 16:00 POC Glucose 223 H Assessment/Plan Active and Suspected Problems Diabetic foot infection (Acute) Failure to thrive (Acute) Acute respiratory failure with hypoxia and hypercapnia (Acute) RECOMMENDATIONS 1. Continue BiPAP with breaks as tolerated, wean FiO2 2. Increase activity as tolerated 3. Continue aerosols on as needed basis 4. De-escalate diuretic therapy 5. Antibiotic therapy per ID recommendations 6. Continue DVT prophylaxis 7. Ambulatory pulse ox prior to discharge, if able 8. Wound care per podiatry recommendations IMPRESSIONS 1. Acute respiratory failure with hypoxia and hypercapnia Patient does not have a home oxygen requirement. Presented with tachycardia in the 140s, was maintaining saturations on room air at 99%. Eventually became hypoxic with escalating daily oxygen requirements from 2 L to BiPAP. ABG obtained on 10/27 and showed a pH 7.4, bicarb 48, PCO2 78 with normal oxygen saturation. Initial BiPAP settings 16/10 with a rate of 12 and 60% FiO2. Has been weaned to 40% FiO2 20/10. Repeat ABG today showed again pH is 7.4, bicarb 52.7, increased CO2 at 85, and PO2 of 104. Patient has been diuresed with IV Lasix and his serum bicarb has steadily increased to 43, likely leading to metabolic derangements. Would continue BiPAP for now and wean FiO2 as tolerated. Patient may have breaks from BiPAP. May require de-escalation of his diuretics. Patient seems very anxious and uncomfortable, would likely benefit from antianxiety medication, however would put at risk for oversedation and worsening of respiratory status. Will need to have BiPAP on if he receives any sedating medications. 2. Suspected sleep apnea Patient with multiple comorbidities, admits to daytime somnolence, snoring, and has been told in the past he has quit breathing in his sleep. He is not interested in pursuing any workup as an outpatient as he is claustrophobic and does not like to wear noninvasive positive pressure therapy. He can be offered follow-up appointment if he is in agreement for outpatient testing. 3. Type II DM/diabetic foot infection/GERD/chronic lymphedema/superobesity/ hypertension/poor hygiene Complicates care, management, recovery, and prognosis. Management per hospitalist. Wound showing Klebsiella, MRSA, Proteus. Blood cultures were negative. ID is following, as well as podiatry. Plan is for patient to go to [facility] on discharge when stable. Thank you for the opportunity to participate in this patient's care, please do not hesitate to contact us with any further questions or concerns. This note was generated with [employer] dictation software. It may contain incorrect words, spelling, and punctuation that were not noted in checking the note before signing.
--- NOTE | 2017-10-28 12:24 | CASEMGMT ---
ROSLYN called Kale at [facility] and let her know patient is not ready today. ROSLYN also faxed her updates. She is aware he is on contact precautions and ROSLYN also faxed her the microbiology results. Plan[facility] when ready. Eunice KITCHEN MSW
[2017-10-28] MEDS: Albuterol 2.5 MG/3 ML VIAL.NEB. INHALATION ×2 (15:20→17:51)
[2017-10-28 16:11] LABS: Bedside Glucose 171 mg/dL (70-110)
[2017-10-28 22:16] LABS: Bedside Glucose 128 mg/dL (70-110)
[2017-10-29] VITALS (20 sets, daily range): BP systolic 123–160; BP diastolic 54–82; PULSE 66–144; RESP 12–28; TEMP 36.3–36.8; O2SAT 91–99
[2017-10-29] MEDS: Albuterol 2.5 MG/3 ML VIAL.NEB. INHALATION ×2 (00:10→13:22)
[2017-10-29 01:47] LABS: Bedside Glucose 121 mg/dL (70-110)
[2017-10-29 06:10] LABS: Hematocrit 35.4 % (40-54); Hemoglobin 10.2 g/dl (13.0-16.5); Mean Corp Hgb Conc 28.8 g/gl (32-36); Mean Corpuscular Volume 100.6 fL (80-94); Mean Platelet Vol. 9.7 fl (6.2-12.0); Platelet Count 191 K/mm3 (150-450); RBC Distribution Width CV 14.9 % (11.6-14.6); RBC Distribution Width SD 54.5 fl (35.1-43.9); Red Blood Count 3.52 M/mm3 (4.6-6.2); White Blood Count 9.9 K/mm3 (4.4-11.0)
[2017-10-29 06:11] LABS: Scan Indicated on CBC? Y/N NO
[2017-10-29 06:38] LABS: Anion Gap 4 (5-15); BUN 21 mg/dL (7-18); BUN/Creat Ratio 31.2 RATIO (10-20); Calcium,Total 7.9 mg/dL (8.5-10.1); Chloride 90 mmol/L (98-107); Creatinine, Serum 0.67 mg/dL (0.70-1.30); EST Glomerular Filtration Rate 126 mL/min (>60); Est Glom Filt Rate - Afr Amer 152 mL/min (>60); Estimated Creatinine Clearance 72.66 ml/min; Glucose 103 mg/dL (70-110); Magnesium 2.3 mg/dL (1.6-2.6); Potassium 3.4 mmol/L (3.5-5.1); Sodium Level 137 mmol/L (136-145)
[2017-10-29 06:50] LABS: Bedside Glucose 101 mg/dL (70-110)
[2017-10-29] MEDS: Aspirin 325 MG Tablet PO (08:45)
[2017-10-29] MEDS: Enoxaparin 40 MG/0.4 ML Syringe SC ×2 (10:14→22:29)
[2017-10-29] MEDS: Calcitriol 0.25 MCG Capsule 0.5 MCG PO (10:15)
[2017-10-29] MEDS: Atenolol 100 MG Tablet PO (10:15)
[2017-10-29] MEDS: Escitalopram Oxalate 10 MG Tablet PO (10:15)
--- NOTE | 2017-10-29 10:37 | PN.ID_ITS ---
Patient Problems: Active and Suspected Problems Diabetic foot infection (Acute) Failure to thrive (Acute) Acute respiratory failure with hypoxia and hypercapnia (Acute) Subjective: Feeling better, breathing easier, still on NIPPV. No fever. - Physical Exam General: Alert, Cooperative, No apparent distress Lungs: Clear to auscultation, Normal air movement Cardiovascular: Regular rate, Regular Rhythm Abdomen: Soft, Non Tender, Non-Distended, Obese Extremities: Edema Skin: - - BLE less red. Ulcerations improved. Vital Signs Temp Pulse Resp BP Pulse Ox 98.1 F 85 28 H 149/54 H 93 10/29/17 04:53 10/29/17 08:16 10/29/17 08:16 10/29/17 04:53 10/29/17 08:16 Oxygen Flow Rate 5 Oxygen Delivery Method Bi-pap Weight: 174.2 kg Body Mass Index (BMI) 57.4 Intake and Output for Last 24 Hours 10/27/17 10/28/17 10/29/17 23:59 23:59 23:59 Intake Total 1421 / 1421 1407 / 1407 400 / 400 Output Total 5450 / 5450 3200 / 3200 450 / 450 Balance -4029 / -4029 -1793 / -1793 -50 / -50 Microbiology Past 72 Hours 10/23/17 18:30 Gram Stain - Final Tissue Ulcer - Leg Wound Culture - Final Klebsiella oxytoca Proteus sp. Meth. resistant Staph. aureus Anaerobic Culture - Final Anaerobic cocci Bacteroides sp Laboratory Tests Past 24 Hrs 10/28/17 10/28/17 10/29/17 11:05 11:05 06:00 WBC 8.6 9.9 RBC 3.67 L 3.52 L Hgb 11.0 L 10.2 L Hct 37.2 L 35.4 L MCV 101.4 H 100.6 H MCH 30.0 29.0 MCHC 29.6 L 28.8 L RDW 14.7 H 14.9 H RDW Differential 53.1 H 54.5 H Plt Count 186 191 MPV 9.9 9.7 Immature Gran % (Auto) 0.200 Neut % (Auto) 76.0 H Lymph % (Auto) 9.6 L [place] % (Auto) 13.5 H Eos % (Auto) 0.5 Baso % (Auto) 0.2 Absolute Neuts (auto) 6.5 Absolute Lymphs (auto) 0.83 Total Counted Not Reportable Sodium 135 L Potassium 3.5 Chloride 87 L Carbon Dioxide 43.0 H Anion Gap 5 BUN 20 H Creatinine 0.69 L Estim Creat Clear Calc 72.66 Est GFR (MDRD) Af Amer 147 Est GFR (MDRD) Non-Af 122 BUN/Creatinine Ratio 28.9 H Glucose 240 H Calcium 7.7 L Magnesium 10/29/17 06:00 WBC RBC Hgb Hct MCV MCH MCHC RDW RDW Differential Plt Count MPV Immature Gran % (Auto) Neut % (Auto) Lymph % (Auto) [place] % (Auto) Eos % (Auto) Baso % (Auto) Absolute Neuts (auto) Absolute Lymphs (auto) Total Counted Sodium 137 Potassium 3.4 L Chloride 90 L Carbon Dioxide 43.0 H Anion Gap 4 L BUN 21 H Creatinine 0.67 L Estim Creat Clear Calc 72.66 Est GFR (MDRD) Af Amer 152 Est GFR (MDRD) Non-Af 126 BUN/Creatinine Ratio 31.2 H Glucose 103 Calcium 7.9 L Magnesium 2.3 POC Glucose 10/29/17 10/29/17 10/28/17 06:46 01:38 21:56 POC Glucose 101 121 H 128 H 10/28/17 10/28/17 16:04 11:31 POC Glucose 171 H 227 H Route of nutrition/ use of supplements: [] Nutritional Intake: [] IV Site: [] Mendez Catheter: [] - Assessment/Plan Antibiotics: [] Assessment/Plan: [] Active and Suspected Problems Diabetic foot infection (Acute) Failure to thrive (Acute) BLE DM infection with chronic lymphedema - wound pcr (+) MRSA. H/o rash with PCN and reports reaction to keflex that caused his lymphedema. On vanc and meropenem. CT showed no abscess. Legs much improved. Wound cx with klebs, proteus, and mrsa. Will change iv abx to po levaquin and bactrim. Day 7 of abx , plan on stop date 11/06/17. Will follow.
--- NOTE | 2017-10-29 10:41 | PCM.PROGNOTE ---
Patient Problems: Active and Suspected Problems Diabetic foot infection (Acute) Failure to thrive (Acute) Acute respiratory failure with hypoxia and hypercapnia (Acute) Subjective: Patient was seen and examined. He is wearing BiPAP and tolerating fairly well. Reports he remains uncomfortable. Somewhat tachypneic. Remains afebrile and hemodynamically stable. Objective: Potassium slightly low at 3.4. Serum bicarb remains at 43. Chloride 90. Wound culture with multiple organisms, antibiotics being guided by ID. - Physical Exam General: Alert, Cooperative, - - wearing BiPAP HEENT: Atraumatic, Normocephalic Oral: Dry Mucosa, - - removed BiPAP for brief exam Neck: No JVD, No Nodes, Trachea Midline Lungs: - - scattered rales, poor inspiratory effort. No appreciable wheezes Cardiovascular: Regular rate, Regular Rhythm, Normal S1, Normal S2, No murmurs, - - distant sounds secondary to body habitus Abdomen: Bowel Sounds Present, Soft, Non Tender, Obese Extremities: No clubbing, No cyanosis, - - significant lymphedema Skin: - - unchanged, leg/foot wounds are dressed. Toes pink Musculoskeletal: No Tenderness to Palpation of Joints or Extremities Lymphatic: - - no adenopathy Neurological: - - no changes Psych/Mental Status: - - less restless today. alert to self and place. Vital Signs Temp Pulse Resp BP Pulse Ox 98.1 F 85 28 H 149/54 H 93 10/29/17 04:53 10/29/17 08:16 10/29/17 08:16 10/29/17 04:53 10/29/17 08:16 Oxygen Flow Rate 5 Oxygen Delivery Method Bi-pap Weight: 384 lb 0.724 oz Body Mass Index (BMI) 57.4 Intake and Output for Last 24 Hours 10/27/17 10/28/17 10/29/17 23:59 23:59 23:59 Intake Total 1421 / 1421 1407 / 1407 400 / 400 Output Total 5450 / 5450 3200 / 3200 450 / 450 Balance -4029 / -4029 -1793 / -1793 -50 / -50 Microbiology Past 72 Hours 10/23/17 18:30 Gram Stain - Final Tissue Ulcer - Leg Wound Culture - Final Klebsiella oxytoca Proteus sp. Meth. resistant Staph. aureus Anaerobic Culture - Final Anaerobic cocci Bacteroides sp Laboratory Tests Past 24 Hrs 10/28/17 10/28/17 10/29/17 11:05 11:05 06:00 WBC 8.6 9.9 RBC 3.67 L 3.52 L Hgb 11.0 L 10.2 L Hct 37.2 L 35.4 L MCV 101.4 H 100.6 H MCH 30.0 29.0 MCHC 29.6 L 28.8 L RDW 14.7 H 14.9 H RDW Differential 53.1 H 54.5 H Plt Count 186 191 MPV 9.9 9.7 Immature Gran % (Auto) 0.200 Neut % (Auto) 76.0 H Lymph % (Auto) 9.6 L Story % (Auto) 13.5 H Eos % (Auto) 0.5 Baso % (Auto) 0.2 Absolute Neuts (auto) 6.5 Absolute Lymphs (auto) 0.83 Total Counted Not Reportable Sodium 135 L Potassium 3.5 Chloride 87 L Carbon Dioxide 43.0 H Anion Gap 5 BUN 20 H Creatinine 0.69 L Estim Creat Clear Calc 72.66 Est GFR (MDRD) Af Amer 147 Est GFR (MDRD) Non-Af 122 BUN/Creatinine Ratio 28.9 H Glucose 240 H Calcium 7.7 L Magnesium 10/29/17 06:00 WBC RBC Hgb Hct MCV MCH MCHC RDW RDW Differential Plt Count MPV Immature Gran % (Auto) Neut % (Auto) Lymph % (Auto) Story % (Auto) Eos % (Auto) Baso % (Auto) Absolute Neuts (auto) Absolute Lymphs (auto) Total Counted Sodium 137 Potassium 3.4 L Chloride 90 L Carbon Dioxide 43.0 H Anion Gap 4 L BUN 21 H Creatinine 0.67 L Estim Creat Clear Calc 72.66 Est GFR (MDRD) Af Amer 152 Est GFR (MDRD) Non-Af 126 BUN/Creatinine Ratio 31.2 H Glucose 103 Calcium 7.9 L Magnesium 2.3 POC Glucose 10/29/17 10/29/17 10/28/17 06:46 01:38 21:56 POC Glucose 101 121 H 128 H 10/28/17 10/28/17 16:04 11:31 POC Glucose 171 H 227 H Assessment/Plan Active and Suspected Problems Diabetic foot infection (Acute) Failure to thrive (Acute) Acute respiratory failure with hypoxia and hypercapnia (Acute) RECOMMENDATIONS 1. Continue BiPAP with breaks as tolerated, wean FiO2 2. Increase activity as tolerated 3. Continue aerosols on as needed basis 4. Encourage incentive spirometer 5. Antibiotic therapy per ID recommendations 6. Continue DVT prophylaxis 7. Ambulatory pulse ox prior to discharge, if able 8. Wound care per podiatry recommendations 9. Follow up in pulmonary clinic in 2 weeks, if agreeable, will need outpatient PSG IMPRESSIONS 1. Acute respiratory failure with hypoxia and hypercapnia Patient does not have a home oxygen requirement. Presented with tachycardia in the 140s, was maintaining saturations on room air at 99%. Eventually became hypoxic with escalating oxygen requirements from 2 L to BiPAP. Patient has not been using his incentive spirometer and is essentially immobile. PT eval completed and pt unable to tolerate even sitting up at the bedside, he was a max assist x4. Patient has been diuresed with IV Lasix with subsequent contraction alkalosis. CO2 has risen to 43. Cumulative fluid balance -9100. Diuretics were discontinued 10/28. He is no longer on any opiates or benzodiazepines. Would continue BiPAP for now and wean FiO2 as tolerated and breaks as tolerated. Encourage incentive spirometer and increase activity as tolerated. 2. Suspected sleep apnea Patient with multiple comorbidities, admits to daytime somnolence, snoring, and has been told in the past he has quit breathing in his sleep. He is not interested in pursuing any workup as an outpatient as he is claustrophobic with significant anxiety issues and does not like to wear noninvasive positive pressure therapy. However, he may not be able to tolerate being off of positive pressure therapy for extended peroids of time. Plans [facility], patient should continue BiPAP there with current settings of 20/10, rate 12, FiO2 30%. He can be offered follow-up appointment if he is in agreement for outpatient PSG testing. 3. Type II DM/diabetic foot infection/GERD/chronic lymphedema/superobesity/hypertension/poor hygiene Complicates care, management, recovery, and prognosis. Management per hospitalist. Wound showing Klebsiella, MRSA, Proteus. Blood cultures were negative. ID is following, as well as podiatry. Plan is for patient to go to [facility] on discharge when stable. This note was generated with [employer] software. It may contain incorrect words, spelling, and punctuation that were not noted in checking the note before signing.
--- NOTE | 2017-10-29 10:47 | CASEMGMT ---
ROSLYN spoke with Kale at [facility]. SW let her know patient will need a bi-pap while there at [facility]. ROSLYN also told her he will likely be on PO ABX. SW will have to get back to her on when he is ready. ROSLYN faxed Pulmonary's RIPRAP MAN note as well as respiratory therapist's note with settings. Plan: d/c to [facility] when ready. Eunice KITCHEN MSW
[2017-10-29] MEDS: Smz/Tmp Ds Tablet 1 TABLET PO ×2 (11:56→17:55)
[2017-10-29] MEDS: levoFLOXacin 500 MG Tablet PO (11:56)
--- NOTE | 2017-10-29 12:06 | PCM.PN.HOSP ---
Patient Problems: Active and Suspected Problems Diabetic foot infection (Acute) Failure to thrive (Acute) Acute respiratory failure with hypoxia and hypercapnia (Acute) Subjective: Patient is seen still remains on BiPAP apparently becomes very tachycardic and hypoxic once BiPAP was weaned off. Consult placed to case management to assist with disposition Objective: GENERAL: Dyspneic at rest on BiPAP HEENT: Clear conjunctiva, NECK; supple, normal thyroid, CHEST: diminished to auscultation bilaterally, HEART: Regular S1 S2, no audible murmurs ABDOMEN: soft, normoactive bowel sounds, RECTAL: deferred EXTREMITIES: Bilateral lymphedema FERRYBOAT HELPER: Awake, no lateralizing signs. SKIN: jose wrap both lower extremities Vitals/I&O's: Vital Signs Temp Pulse Resp BP Pulse Ox 97.8 F 67 24 H 145/70 H 91 10/29/17 11:00 10/29/17 11:50 10/29/17 11:00 10/29/17 11:00 10/29/17 11:00 Oxygen Flow Rate 5 Oxygen Delivery Method Bi-pap Weight: 174.2 kg Body Mass Index (BMI) 57.4 Intake and Output for Last 24 Hours 10/27/17 10/28/17 10/29/17 23:59 23:59 23:59 Intake Total 1421 / 1421 1407 / 1407 600 / 600 Output Total 5450 / 5450 3200 / 3200 1225 / 1225 Balance -4029 / -4029 -1793 / -1793 -625 / -625 Microbiology Past 72 Hours 10/23/17 18:30 Tissue Ulcer - Leg Gram Stain - Final 10/23/17 18:30 Tissue Ulcer - Leg Wound Culture - Final Klebsiella oxytoca Proteus sp. Meth. resistant Staph. aureus 10/23/17 18:30 Tissue Ulcer - Leg Anaerobic Culture - Final Anaerobic cocci Bacteroides sp Laboratory Results 10/28/17 16:04: POC Glucose 171 H 10/28/17 21:56: POC Glucose 128 H 10/29/17 01:38: POC Glucose 121 H 10/29/17 06:00: WBC 9.9, RBC 3.52 L, Hgb 10.2 L, Hct 35.4 L, MCV 100.6 H, MCH 29.0, MCHC 28.8 L, RDW 14.9 H, RDW Differential 54.5 H, Plt Count 191, MPV 9.7 10/29/17 06:00: Sodium 137, Potassium 3.4 L, Chloride 90 L, Carbon Dioxide 43.0 H, Anion Gap 4 L, BUN 21 H, Creatinine 0.67 L, Estim Creat Clear Calc 72.66, Est GFR (MDRD) Af Amer 152, Est GFR (MDRD) Non-Af 126, BUN/Creatinine Ratio 31.2 H, Glucose 103, Calcium 7.9 L, Magnesium 2.3 10/29/17 06:46: POC Glucose 101 Current Medications Acetaminophen (Tylenol) 650 mg PO Q6H PRN PRN PRN Reason: Mild Pain (scale 0-3)/T>100.7 Last Admin: 10/27/17 18:23 Dose: 650 mg Albuterol Sulfate (Ventolin Aerosols) 2.5 mg INHALATION Q2H PRN PRN PRN Reason: SHORTNESS OF BREATH/ WHEEZING Last Admin: 10/29/17 00:10 Dose: 2.5 mg Aspirin (Aspirin) 325 mg PO DAILY@0800 [facility] Last Admin: 10/29/17 08:45 Dose: 325 mg Atenolol (Tenormin (Beta Patrick)) 100 mg PO DAILY [facility] Last Admin: 10/29/17 10:15 Dose: 100 mg Calcitriol (Rocaltrol) 0.5 mcg PO DAILY [facility] Last Admin: 10/29/17 10:15 Dose: 0.5 mcg Dextrose (D50w Syringe) 0 gm IV X1 PRN; Protocol PRN Reason: Hypoglycemia Last Admin: 10/23/17 21:56 Dose: 25 gm Enoxaparin Sodium (Lovenox) 40 mg SC Q12 [facility] Last Admin: 10/29/17 10:14 Dose: 40 mg Escitalopram Oxalate (Lexapro) 10 mg PO DAILY [facility] Last Admin: 10/29/17 10:15 Dose: 10 mg Glucagon () 1 mg IM .X1 PRN PRN Reason: Hypoglycemia Sodium Chloride () 250 mls @ 15 mls/hr IV .[id number] PRN PRN Reason: SALINE FLUSH Insulin Aspart (Novolog Flexpen (Bkc)) 0 units SC ACHS & 3AM KARLEE PRN Reason: Protocol Last Admin: 10/29/17 11:58 Dose: Not Given Insulin Aspart (Novolog Flexpen (Bkc)) 8 units SC TIDAC [facility] Last Admin: 10/29/17 11:57 Dose: 8 units Insulin Detemir (Levemir (Bkc)) 30 units SC BID [facility] Last Admin: 10/29/17 11:20 Dose: 30 units Levofloxacin (Levaquin) 500 mg PO DAILY@0600 [facility] Last Admin: 10/29/17 11:56 Dose: 500 mg Magnesium Hydroxide (Milk Of Magnesia) 30 ml PO DAILY PRN PRN PRN Reason: Constipation Last Admin: 10/26/17 05:03 Dose: 30 ml Nutritional Formula (Lactose Free) (Glucerna Shake) 120 ml PO 4X/DAY [facility] Last Admin: 10/29/17 10:16 Dose: Not Given Ondansetron HCl (Zofran) 4 mg IV Q8H PRN PRN PRN Reason: Nausea Pravastatin Sodium (Pravachol) 20 mg PO QHS [facility] Last Admin: 10/28/17 22:06 Dose: Not Given Sodium Chloride () 5 - 30 ml IV UD PRN PRN Reason: SALINE FLUSH Last Admin: 10/27/17 18:22 Dose: 10 ml Trimethoprim/Sulfamethoxazole (Bactrim Ds) 1 tablet PO BIDCM [facility] Last Admin: 10/29/17 11:56 Dose: 1 tablet Assessment/Plan Active and Suspected Problems Diabetic foot infection (Acute) Failure to thrive (Acute) Acute respiratory failure with hypoxia and hypercapnia (Acute) Patient is a 67-year-old gentleman with multiple comorbidities including morbid obesity with BMI of 55.6, bilateral lymphedema admitted with lower extremity wound infection. Cultures so far positive for MRSA, Klebsiella oxytoca and Proteus sp. 1. Bilateral lower extremity wound infection in the context of advanced lymphedema cultures positive forMRSA, Klebsiella oxytoca and Proteus sp. patient has been managed with vancomycin as well as meropenem. Patient has been seen in consultation by infectious disease PICC line was placed on 10/28/17. Consultation was also placed to podiatry medicine to assist with management 2. Acute hypercapnic respiratory failure secondary to patient's underlying obesity hypoventilation syndrome in addition to narcotics which patient was previously on. Patient was placed on noninvasive ventilation BiPAP with consultation placed a pulmonary medicine Patient was also deemed patient was also deemed to be a contraction alkalosis Lasix was therefore discontinued by pulmonary medicine 3. Metabolic encephalopathy secondary to #2 4. 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 Patient is on long-acting insulin dose did continue home dose with dose adjustment as needed in addition to Accu-Cheks before meals and at bedtime with sliding scale coverage 5. Hypertension-blood pressure controlled, home medications continued with dose adjustment as needed 6. Dyslipidemia-patient is on statin therapy, continued at home dose 7. Bilateral lower extremity lymphedema 8. Morbid obesity with BMI of 55.6 9. Obesity hypoventilation syndrome 10. Obstructive sleep apnea 11. Adult failure to thrive requested for PT OT eval as well as clinical social worker to assist with discharge planning 12. DVT prophylaxis patient is on Lovenox dose adjusted for BMI Code Visit Inpatient E&M: 15192 Subs Hosp L3
[2017-10-29 12:11] LABS: Bedside Glucose 140 mg/dL (70-110)
--- NOTE | 2017-10-29 12:53 | NURSING ---
patient was on nc 5l was anxious yelling out o2 sats decreased to 86% bipap placed nack on held patient hand until he calmed down will give xanax for anxiety
[2017-10-29] MEDS: ALPRAZolam 0.5 MG Tablet PO ×2 (13:00→22:29)
[2017-10-29] MEDS: Glucerna Shake 120 ML LIQUID PO ×2 (13:00→17:55)
--- NOTE | 2017-10-29 14:28 | CASEMGMT ---
Social Work Note Notified by staff that female visitor was in patient's room today requesting information on advanced directives. Presented to patient's room this afternoon and no visitors present. Attempted to speak with patient about this subject matter, but patient appearing sleepy as evidenced by opening eyes only briefly when oncology social worker directly spoke with patient and then falling back asleep, not responding to oncology social worker's voice. Unable to further discuss advanced directives at this time. kitchen and counter worker does remain available if needed. If not able to further discuss while at hospital, patient is going to SNF where oncology social worker there may also be able to assist. -FINA Chakraborty, AVIATION ELECTRICIAN
[2017-10-29 16:41] LABS: Bedside Glucose 153 mg/dL (70-110)
[2017-10-29 21:20] LABS: Bedside Glucose 207 mg/dL (70-110)
[2017-10-29] MEDS: Pravastatin 20 MG Tablet PO (22:29)
[2017-10-29] MEDS: Acetaminophen 325 MG Tablet 650 MG PO (22:29)
[2017-10-30] VITALS (19 sets, daily range): BP systolic 124–154; BP diastolic 68–75; PULSE 58–97; RESP 12–24; TEMP 36.2–36.9; O2SAT 90–97
[2017-10-30 03:51] LABS: Bedside Glucose 179 mg/dL (70-110)
[2017-10-30] MEDS: Acetaminophen 325 MG Tablet 650 MG PO (04:55)
[2017-10-30] MEDS: ALPRAZolam 0.5 MG Tablet PO ×2 (04:55→11:11)
[2017-10-30] MEDS: levoFLOXacin 500 MG Tablet PO (05:00)
[2017-10-30 06:43] LABS: Hematocrit 36.9 % (40-54); Hemoglobin 10.6 g/dl (13.0-16.5); Mean Corp Hgb Conc 28.7 g/gl (32-36); Mean Corpuscular Hgb 29.6 pg (27.0-32.0); Mean Corpuscular Volume 103.1 fL (80-94); Platelet Count 184 K/mm3 (150-450); RBC Distribution Width CV 14.8 % (11.6-14.6); RBC Distribution Width SD 54.5 fl (35.1-43.9); Red Blood Count 3.58 M/mm3 (4.6-6.2); White Blood Count 8.1 K/mm3 (4.4-11.0)
[2017-10-30 06:46] LABS: Scan Indicated on CBC? Y/N NO
[2017-10-30 06:55] LABS: Bedside Glucose 161 mg/dL (70-110)
[2017-10-30 06:58] LABS: Anion Gap 4 (5-15); BUN 21 mg/dL (7-18); BUN/Creat Ratio 35.6 RATIO (10-20); Calcium,Total 7.9 mg/dL (8.5-10.1); Chloride 92 mmol/L (98-107); Creatinine, Serum 0.59 mg/dL (0.70-1.30); EST Glomerular Filtration Rate 146 mL/min (>60); Est Glom Filt Rate - Afr Amer 177 mL/min (>60); Estimated Creatinine Clearance 72.66 ml/min; Glucose 161 mg/dL (70-110); Potassium 4.2 mmol/L (3.5-5.1); Sodium Level 139 mmol/L (136-145)
[2017-10-30] MEDS: Aspirin 325 MG Tablet PO (08:36)
[2017-10-30] MEDS: Enoxaparin 40 MG/0.4 ML Syringe SC ×2 (08:37→22:30)
[2017-10-30] MEDS: Calcitriol 0.25 MCG Capsule 0.5 MCG PO (08:37)
[2017-10-30] MEDS: Smz/Tmp Ds Tablet 1 TABLET PO ×2 (08:37→18:23)
[2017-10-30] MEDS: Escitalopram Oxalate 10 MG Tablet PO (08:37)
[2017-10-30] MEDS: Glucerna Shake 120 ML LIQUID PO ×2 (08:40→22:30)
--- NOTE | 2017-10-30 08:49 | PCM.PROGNOTE ---
Patient Problems: Active and Suspected Problems Diabetic foot infection (Acute) Failure to thrive (Acute) Acute respiratory failure with hypoxia and hypercapnia (Acute) Subjective: Patient was seen and examined. He is sitting up in bed, currently on BiPAP. He does not appear to be in any acute distress. - Physical Exam General: - - On BiPAP, appears somewhat lethargic but arousable by voice HEENT: Atraumatic, Normocephalic Neck: Supple, No Nodes, Trachea Midline Lungs: Diminished, - - No appreciable rhonchi or rales. Minimal expiratory wheeze Cardiovascular: Regular rate, Regular Rhythm Abdomen: Bowel Sounds Present, Soft, Non Tender, Obese Extremities: No clubbing, No cyanosis, - - lymphedema Skin: - - no changes from previous Musculoskeletal: No Tenderness to Palpation of Joints or Extremities Lymphatic: No Cervical, Supraclavicular, or Inguinal Adenopathy Neurological: Cranial nerves II-XII grossly intact Psych/Mental Status: - - semi-lethargic Vital Signs Temp Pulse Resp BP Pulse Ox 98.4 F 64 24 H 130/68 H 96 10/30/17 03:00 10/30/17 08:04 10/30/17 08:04 10/30/17 03:00 10/30/17 08:04 Oxygen Flow Rate 5 Oxygen Delivery Method Bi-pap Weight: 375 lb 14.21 oz Body Mass Index (BMI) 57.4 Intake and Output for Last 24 Hours 10/28/17 10/29/17 10/30/17 23:59 23:59 23:59 Intake Total 1407 / 1407 1669 / 1669 320 / 320 Output Total 3200 / 3200 1525 / 1525 1150 / 1150 Balance -1793 / -1793 144 / 144 -830 / -830 Microbiology Past 72 Hours 10/23/17 18:30 Gram Stain - Final Tissue Ulcer - Leg Wound Culture - Final Klebsiella oxytoca Proteus sp. Meth. resistant Staph. aureus Anaerobic Culture - Final Anaerobic cocci Bacteroides sp Laboratory Tests Past 24 Hrs 10/30/17 10/30/17 10/30/17 06:30 06:30 08:22 WBC 8.1 RBC 3.58 L Hgb 10.6 L Hct 36.9 L MCV 103.1 H MCH 29.6 MCHC 28.7 L RDW 14.8 H RDW Differential 54.5 H Plt Count 184 MPV 10.0 Sodium 139 Potassium 4.2 Chloride 92 L Carbon Dioxide 43.0 H Anion Gap 4 L BUN 21 H Creatinine 0.59 L Estim Creat Clear Calc 72.66 Est GFR (MDRD) Af Amer 177 Est GFR (MDRD) Non-Af 146 BUN/Creatinine Ratio 35.6 H Glucose 161 H Calcium 7.9 L Vancomycin Trough Pending POC Glucose 10/30/17 10/30/17 10/29/17 06:48 03:42 21:15 POC Glucose 161 H 179 H 207 H 10/29/17 10/29/17 16:06 11:52 POC Glucose 153 H 140 H Assessment/Plan Active and Suspected Problems Diabetic foot infection (Acute) Failure to thrive (Acute) Acute respiratory failure with hypoxia and hypercapnia (Acute) RECOMMENDATIONS 1. Continue BiPAP with breaks as tolerated, wean FiO2 to keep saturations >88% 2. Increase activity as tolerated, PT 3. Continue aerosols on as needed basis 4. Encourage incentive spirometer 5. Antibiotic therapy per ID recommendations 6. Ambulatory pulse ox prior to discharge, if able 7. Wound care per podiatry recommendations 8. Follow up in pulmonary clinic in 2 weeks, if agreeable, will need outpatient PSG 9. Would recommend Palliative care consult given multiple comorbidities IMPRESSIONS 1. Acute respiratory failure with hypoxia and hypercapnia Patient does not have a home oxygen requirement. Presented with tachycardia in the 140s, was maintaining saturations on room air at 99%. Eventually became hypoxic with escalating oxygen requirements from 2 L to BiPAP, having intermittent episodes tachycardia which likely are cause of increased hypoxia. Patient has not been using his incentive spirometer and is essentially immobile. PT eval completed and pt unable to tolerate even sitting up at the bedside, he was a max assist x4. Patient has been diuresed with IV Lasix with subsequent contraction alkalosis. CO2 has risen to 43. Cumulative fluid balance -9100. Diuretics were discontinued 10/28. He is no longer on any opiates, but PRN Xanax reordered yesterday. Would continue BiPAP for now and wean as tolerated to nasal cannula. Patient has not tolerated extensive breaks of BiPAP and becomes quite anxious without it. Would consider palliative care consult, given the fact that the patient has expressed he would not wear BiPAP out of the hospital setting.. Encourage incentive spirometer and increase activity as tolerated. 2. Suspected sleep apnea Patient with multiple comorbidities, admits to daytime somnolence, snoring, and has had witnessed apnea in the past. He is not interested in pursuing any workup as an outpatient as he is claustrophobic with significant anxiety issues and does not like to wear noninvasive positive pressure therapy. However, he may not be able to tolerate being off of positive pressure therapy for extended periods of time. Plans are for discharge to SNF, patient should continue BiPAP there with current settings of 20/10, rate 12, FiO2 30%. He can be offered follow-up appointment if he is in agreement for outpatient PSG testing. 3. Type II DM/diabetic foot infection/GERD/chronic lymphedema/superobesity/hypertension/poor hygiene Complicates care, management, recovery, and prognosis. Management per hospitalist. Wound showing Klebsiella, MRSA, Proteus. Blood cultures were negative. ID is following, as well as podiatry. He is now on oral antibiotics and PICC line can likely be discontinued. Plan is for patient to go to [facility] on discharge when stable. This note was generated with [employer] dictation software. It may contain incorrect words, spelling, and punctuation that were not noted in checking the note before signing.
[2017-10-30 09:00] LABS: Vancomycin, Trough Level 3.2 ug/mL (5.0-15.0)
--- NOTE | 2017-10-30 09:13 | PCM.PN.HOSP ---
Patient Problems: Active and Suspected Problems Diabetic foot infection (Acute) Failure to thrive (Acute) Acute respiratory failure with hypoxia and hypercapnia (Acute) Subjective: Patient seen still remains significantly dyspneic at rest and also has extreme anxiety was cautiously placed on Xanax 0.5 mg 3 times daily as needed. Patient was also noticed to have hematuria in his Mendez catheter attributed to irritation and order was given for the Mendez catheter to be discontinued Objective: GENERAL: He is extremely anxious HEENT: Clear conjunctiva, NECK; supple, normal thyroid, CHEST: diminished to auscultation bilaterally, HEART: Regular S1 S2, no audible murmurs ABDOMEN: soft, normoactive bowel sounds, RECTAL: deferred EXTREMITIES: Bilateral lymphedema [employer]AT[employer]ER: Awake, no lateralizing signs. SKIN: jose wrap both lower extremities Vitals/I&O's: Vital Signs Temp Pulse Resp BP Pulse Ox 97.6 F L 75 20 H 152/70 H 94 10/30/17 08:56 10/30/17 08:56 10/30/17 08:56 10/30/17 08:56 10/30/17 08:56 Oxygen Flow Rate 4 Oxygen Delivery Method Nasal Cannula Weight: 170.5 kg Body Mass Index (BMI) 57.4 Intake and Output for Last 24 Hours 10/28/17 10/29/17 10/30/17 23:59 23:59 23:59 Intake Total 1407 / 1407 1669 / 1669 320 / 320 Output Total 3200 / 3200 1525 / 1525 1150 / 1150 Balance -1793 / -1793 144 / 144 -830 / -830 Microbiology Past 72 Hours 10/23/17 18:30 Tissue Ulcer - Leg Gram Stain - Final 10/23/17 18:30 Tissue Ulcer - Leg Wound Culture - Final Klebsiella oxytoca Proteus sp. Meth. resistant Staph. aureus 10/23/17 18:30 Tissue Ulcer - Leg Anaerobic Culture - Final Anaerobic cocci Bacteroides sp Laboratory Results 10/29/17 11:52: POC Glucose 140 H 10/29/17 16:06: POC Glucose 153 H 10/29/17 21:15: POC Glucose 207 H 10/30/17 03:42: POC Glucose 179 H 10/30/17 06:30: WBC 8.1, RBC 3.58 L, Hgb 10.6 L, Hct 36.9 L, MCV 103.1 H, MCH 29.6, MCHC 28.7 L, RDW 14.8 H, RDW Differential 54.5 H, Plt Count 184, MPV 10.0 10/30/17 06:30: Sodium 139, Potassium 4.2, Chloride 92 L, Carbon Dioxide 43.0 H, Anion Gap 4 L, BUN 21 H, Creatinine 0.59 L, Estim Creat Clear Calc 72.66, Est GFR (MDRD) Af Amer 177, Est GFR (MDRD) Non-Af 146, BUN/Creatinine Ratio 35.6 H, Glucose 161 H, Calcium 7.9 L 10/30/17 06:48: POC Glucose 161 H 10/30/17 08:22: Vancomycin Trough 3.2 L Current Medications Acetaminophen (Tylenol) 650 mg PO Q6H PRN PRN PRN Reason: Mild Pain (scale 0-3)/T>100.7 Last Admin: 10/30/17 04:55 Dose: 650 mg Albuterol Sulfate (Ventolin Aerosols) 2.5 mg INHALATION Q2H PRN PRN PRN Reason: SHORTNESS OF BREATH/ WHEEZING Last Admin: 10/29/17 13:22 Dose: 2.5 mg Alprazolam (Xanax) 0.5 mg PO TID PRN PRN PRN Reason: ANXIETY/AGITATION Last Admin: 10/30/17 04:55 Dose: 0.5 mg Aspirin (Aspirin) 325 mg PO DAILY@0800 [facility] Last Admin: 10/30/17 08:36 Dose: 325 mg Atenolol (Tenormin (Beta Patrick)) 100 mg PO DAILY [facility] Last Admin: 10/29/17 10:15 Dose: 100 mg Calcitriol (Rocaltrol) 0.5 mcg PO DAILY [facility] Last Admin: 10/30/17 08:37 Dose: 0.5 mcg Dextrose (D50w Syringe) 0 gm IV X1 PRN; Protocol PRN Reason: Hypoglycemia Last Admin: 10/23/17 21:56 Dose: 25 gm Enoxaparin Sodium (Lovenox) 40 mg SC Q12 [facility] Last Admin: 10/30/17 08:37 Dose: 40 mg Escitalopram Oxalate (Lexapro) 10 mg PO DAILY [facility] Last Admin: 10/30/17 08:37 Dose: 10 mg Glucagon () 1 mg IM .X1 PRN PRN Reason: Hypoglycemia Sodium Chloride () 250 mls @ 15 mls/hr IV .[id number] PRN PRN Reason: SALINE FLUSH Insulin Aspart (Novolog Flexpen (Bkc)) 0 units SC ACHS & 3AM KARLEE PRN Reason: Protocol Last Admin: 10/30/17 08:36 Dose: 1 u Insulin Aspart (Novolog Flexpen (Bkc)) 8 units SC TIDAC [facility] Last Admin: 10/30/17 08:36 Dose: 8 units Insulin Detemir (Levemir (Bkc)) 30 units SC BID [facility] Last Admin: 10/30/17 08:41 Dose: 30 units Levofloxacin (Levaquin) 500 mg PO DAILY@0600 [facility] Last Admin: 10/30/17 05:00 Dose: 500 mg Magnesium Hydroxide (Milk Of Magnesia) 30 ml PO DAILY PRN PRN PRN Reason: Constipation Last Admin: 10/26/17 05:03 Dose: 30 ml Nutritional Formula (Lactose Free) (Glucerna Shake) 120 ml PO 4X/DAY [facility] Last Admin: 10/30/17 08:40 Dose: 120 ml Ondansetron HCl (Zofran) 4 mg IV Q8H PRN PRN PRN Reason: Nausea Pravastatin Sodium (Pravachol) 20 mg PO QHS [facility] Last Admin: 10/29/17 22:29 Dose: 20 mg Sodium Chloride () 5 - 30 ml IV UD PRN PRN Reason: SALINE FLUSH Last Admin: 10/27/17 18:22 Dose: 10 ml [facility]imethop[facility] Last Admin: 10/30/17 08:37 Dose: 1 tablet Assessment/Plan Active and Suspected Problems Diabetic foot infection (Acute) Failure to thrive (Acute) Acute respiratory failure with hypoxia and hypercapnia (Acute) Patient is a 67-year-old gentleman with multiple comorbidities including morbid obesity with BMI of 55.6, bilateral lymphedema admitted with lower extremity wound infection. Cultures so far positive for MRSA, Klebsiella oxytoca and Proteus sp. 1. Bilateral lower extremity wound infection in the context of advanced lymphedema cultures positive forMRSA, Klebsiella oxytoca and Proteus sp. patient has been managed with vancomycin as well as meropenem. Patient has been seen in consultation by infectious disease PICC line was placed on 10/28/17. Consultation was also placed to podiatry medicine to assist with management 2. Acute hypercapnic respiratory failure secondary to patient's underlying obesity hypoventilation syndrome in addition to narcotics which patient was previously on. Patient was placed on noninvasive ventilation BiPAP with consultation placed a pulmonary medicine Patient was also deemed patient was also deemed to be a contraction alkalosis Lasix was therefore discontinued by pulmonary medicine 3. Metabolic encephalopathy secondary to #2 4. 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 Patient is on long-acting insulin dose did continue home dose with dose adjustment as needed in addition to Accu-Cheks before meals and at bedtime with sliding scale coverage 5. Hypertension-blood pressure controlled, home medications continued with dose adjustment as needed 6. Dyslipidemia-patient is on statin therapy, continued at home dose 7. Bilateral lower extremity lymphedema 8. Morbid obesity with BMI of 55.6 9. Obesity hypoventilation syndrome 10. Obstructive sleep apnea 11. Adult failure to thrive requested for PT OT eval as well as social sciences chair to assist with discharge planning 12. DVT prophylaxis patient is on Lovenox dose adjusted for BMI 13. Anxiety disorder cautiously placed on Xanax Code Visit Inpatient E&M: 81398 Subs Hosp L2
--- NOTE | 2017-10-30 10:06 | CASEMGMT ---
Per physician patient is not ready today. ROSLYN called Kale at [facility] ([facility]) and let her know patient will not be coming today. ROSLYN also faxed her updates including wound care orders per her request. Plan: [facility] when ready. Eunice KITCHEN MSW
--- NOTE | 2017-10-30 10:30 | PCM.PN.ID ---
Patient Problems: Active and Suspected Problems Diabetic foot infection (Acute) Failure to thrive (Acute) Acute respiratory failure with hypoxia and hypercapnia (Acute) Subjective: No fever, breathing about the same. - Physical Exam General: Cooperative, No apparent distress Lungs: Clear to auscultation, Normal air movement Cardiovascular: Irregular Rate Abdomen: Soft, Non Tender, Obese Extremities: Edema Skin: Ulcer/ Wound - BLE less red and ulcerated. Vital Signs Temp Pulse Resp BP Pulse Ox 97.6 F L 75 20 H 152/70 H 94 10/30/17 08:56 10/30/17 08:56 10/30/17 08:56 10/30/17 08:56 10/30/17 08:56 Oxygen Flow Rate 4 Oxygen Delivery Method Nasal Cannula Weight: 170.5 kg Body Mass Index (BMI) 57.4 Intake and Output for Last 24 Hours 10/28/17 10/29/17 10/30/17 23:59 23:59 23:59 Intake Total 1407 / 1407 1669 / 1669 320 / 320 Output Total 3200 / 3200 1525 / 1525 1150 / 1150 Balance -1793 / -1793 144 / 144 -830 / -830 Microbiology Past 72 Hours 10/23/17 18:30 Gram Stain - Final Tissue Ulcer - Leg Wound Culture - Final Klebsiella oxytoca Proteus sp. Meth. resistant Staph. aureus Anaerobic Culture - Final Anaerobic cocci Bacteroides sp Laboratory Tests Past 24 Hrs 10/30/17 10/30/17 10/30/17 06:30 06:30 08:22 WBC 8.1 RBC 3.58 L Hgb 10.6 L Hct 36.9 L MCV 103.1 H MCH 29.6 MCHC 28.7 L RDW 14.8 H RDW Differential 54.5 H Plt Count 184 MPV 10.0 Sodium 139 Potassium 4.2 Chloride 92 L Carbon Dioxide 43.0 H Anion Gap 4 L BUN 21 H Creatinine 0.59 L Estim Creat Clear Calc 72.66 Est GFR (MDRD) Af Amer 177 Est GFR (MDRD) Non-Af 146 BUN/Creatinine Ratio 35.6 H Glucose 161 H Calcium 7.9 L Vancomycin Trough 3.2 L POC Glucose 10/30/17 10/30/17 10/29/17 06:48 03:42 21:15 POC Glucose 161 H 179 H 207 H 10/29/17 10/29/17 16:06 11:52 POC Glucose 153 H 140 H Route of nutrition/ use of supplements: [] Nutritional Intake: [] IV Site: [] Mendez Catheter: [] - Assessment/Plan Antibiotics: [] Assessment/Plan: [] Active and Suspected Problems Diabetic foot infection (Acute) Failure to thrive (Acute) BLE DM infection with chronic lymphedema - wound pcr (+) MRSA. H/o rash with PCN and reports reaction to keflex that caused his lymphedema. On vanc and meropenem. CT showed no abscess. Legs much improved. Wound cx with klebs, proteus, and mrsa. Continue po levaquin and bactrim, will add flagyl due to continued odor and (+) anaerobic cx. Day 8 of abx, plan on stop date 11/06/17. Will follow.
[2017-10-30] MEDS: Atenolol 100 MG Tablet PO (11:11)
[2017-10-30 11:21] LABS: Bedside Glucose 164 mg/dL (70-110)
--- NOTE | 2017-10-30 13:03 | RAD_ITS ---
STUDY: X-RAY CHEST REASON FOR EXAM: Male, 67 years old. Shortness of breath/dyspnea. TECHNIQUE: Single AP portable view of the chest. COMPARISON: Comparison is made with prior examination dated October 27, 2017. FINDINGS: EKG electrodes are seen. Impression congestion and increased markings in both lungs worse in the right perihilar region suggestive of a progressive CHF. There is no demonstrated pleural abnormality. There is mild cardiac enlargement. Normal mediastinum and osiel. Normal visualized pulmonary arteries. Normal visualized aortic arch and descending thoracic aorta. There are diffuse degenerative changes of the visualized thoracic spine. Normal visualized ribs, clavicles, and shoulders. There is no demonstrated abnormality of the visualized soft tissue structures of the upper abdomen. RAD/Chest 1 View (Portable) IMPRESSION: Findings suggestive of progressive CHF. Electronically Signed: Tab Blanco MD at 14:55 EST Tel [phone], Service support ,
--- NOTE | 2017-10-30 13:46 | CASEMGMT ---
SW was asked to talk with patient's sister regarding living will. SW spoke with Pat, patient's sister. Patient was sleeping. She asked if SW could complete a living will with patient as he keeps saying he would never want put on a vent. SW told her SW could check back with patient once he is awake and we could discuss living will. Eunice KITCHEN MSW
[2017-10-30] MEDS: Albuterol 2.5 MG/3 ML VIAL.NEB. INHALATION (13:54)
[2017-10-30] MEDS: metroNIDAZOLE 500 MG Tablet PO ×2 (15:38→22:30)
[2017-10-30 15:51] LABS: Bedside Glucose 175 mg/dL (70-110)
--- NOTE | 2017-10-30 16:04 | CPS ---
Bipap changes per telephone order with Dr Luong...21/05 40%
[2017-10-30] MEDS: Pravastatin 20 MG Tablet PO (22:30)
[2017-10-30 23:05] LABS: Bedside Glucose 136 mg/dL (70-110)
[2017-10-31] VITALS (21 sets, daily range): BP systolic 120–165; BP diastolic 54–82; PULSE 61–83; RESP 12–24; TEMP 35.9–36.3; O2SAT 94–100
[2017-10-31] MEDS: Albuterol 2.5 MG/3 ML VIAL.NEB. INHALATION ×4 (00:43→22:05)
[2017-10-31 03:25] LABS: Bedside Glucose 99 mg/dL (70-110)
[2017-10-31] MEDS: 0.9% NaCl Peripheral Flush Adult/Peds IV ×2 (06:19→08:33)
[2017-10-31] MEDS: metroNIDAZOLE 500 MG Tablet PO ×3 (06:20→21:01)
[2017-10-31] MEDS: levoFLOXacin 500 MG Tablet PO (06:20)
[2017-10-31 06:55] LABS: Bedside Glucose 66 mg/dL (70-110)
[2017-10-31 07:11] LABS: Bedside Glucose 74 mg/dL (70-110)
[2017-10-31 07:50] LABS: Anion Gap 5 (5-15); BUN 19 mg/dL (7-18); BUN/Creat Ratio 41.5 RATIO (10-20); Calcium,Total 7.7 mg/dL (8.5-10.1); Chloride 96 mmol/L (98-107); Creatinine, Serum 0.46 mg/dL (0.70-1.30); EST Glomerular Filtration Rate 196 mL/min (>60); Est Glom Filt Rate - Afr Amer 237 mL/min (>60); Estimated Creatinine Clearance 72.66 ml/min; Glucose 96 mg/dL (70-110); Potassium 4.7 mmol/L (3.5-5.1); Sodium Level 141 mmol/L (136-145)
[2017-10-31] MEDS: ALPRAZolam 0.5 MG Tablet PO ×2 (08:33→17:32)
[2017-10-31] MEDS: Smz/Tmp Ds Tablet 1 TABLET PO ×2 (08:33→17:32)
[2017-10-31] MEDS: Aspirin 325 MG Tablet PO (08:33)
[2017-10-31] MEDS: Enoxaparin 40 MG/0.4 ML Syringe SC ×2 (09:01→21:02)
[2017-10-31] MEDS: Escitalopram Oxalate 10 MG Tablet PO (09:01)
[2017-10-31] MEDS: Atenolol 100 MG Tablet PO (09:01)
[2017-10-31] MEDS: Calcitriol 0.25 MCG Capsule 0.5 MCG PO (09:02)
[2017-10-31] MEDS: Glucerna Shake 120 ML LIQUID PO ×3 (09:02→17:33)
--- NOTE | 2017-10-31 09:30 | CASEMGMT ---
ROSLYN received a call from Ebonie at [facility] as Hallee is off today. She asked if ROSLYN could send therapy notes as the notes they received last indicated he is an assist of 4. ROSLYN faxed PT/OT and a nursing note indicating patient does not get out of bed and has a pad under him for bathroom purposes. ROSLYN concerned that [facility] may changed their mind due to his physical inabilities. Eunice KITCHEN MSW
--- NOTE | 2017-10-31 10:15 | CASEMGMT ---
Addendum entered by Eunice Vo 10/31/17 10:19: Received call from Jacklyn, and she said she could be here in 45 minutes. SW notified physician and RN. Eunice CORONEL Original Note: Physician would like to talk with patient and his sister. SW called patient's sister, Jacklyn and left her a voice mail asking if she could call SW back to schedule a meeting with Dr Cisneros. Eunice KITCHEN MSW
--- NOTE | 2017-10-31 11:00 | NURSING ---
wound photo: left leg
--- NOTE | 2017-10-31 11:01 | NURSING ---
wound photo: left lateral lower leg
--- NOTE | 2017-10-31 11:01 | NURSING ---
wound photo: left lateral heel
--- NOTE | 2017-10-31 11:02 | NURSING ---
wound photo: left medial lower leg
--- NOTE | 2017-10-31 11:02 | NURSING ---
wound photo: right leg
--- NOTE | 2017-10-31 11:03 | NURSING ---
wound photo: right lateral lower leg
--- NOTE | 2017-10-31 11:08 | PN_ITS ---
Patient Problems: Active and Suspected Problems Diabetic foot infection (Acute) Failure to thrive (Acute) Acute respiratory failure with hypoxia and hypercapnia (Acute) Subjective: Seen remains significantly dependent on the BiPAP patient screams whenever the BiPAP was discontinued had an extensive discussion with patient as well as the sister did discuss patient prognosis and CODE STATUS. CODE STATUS changed from full code to DNR CC case was also discussed with social work specialist plan will be to obtain hospice/palliative care consult Objective: GENERAL: Dyspneic at rest on BiPAP HEENT: Clear conjunctiva, NECK; supple, normal thyroid, CHEST: diminished to auscultation bilaterally, HEART: Regular S1 S2, no audible murmurs ABDOMEN: soft, normoactive bowel sounds, RECTAL: deferred EXTREMITIES: Bilateral lymphedema [employer]PER[employer]: Awake, no lateralizing signs. SKIN: jose wrap both lower extremities Vitals/I&O's: Vital Signs Temp Pulse Resp BP Pulse Ox 97.3 F L 83 20 H 165/82 H 95 10/31/17 09:00 10/31/17 09:00 10/31/17 09:00 10/31/17 09:00 10/31/17 09:01 Oxygen Flow Rate 5 Oxygen Delivery Method Nasal Cannula Weight: 169.5 kg Body Mass Index (BMI) 57.4 Intake and Output for Last 24 Hours 10/29/17 10/30/17 10/31/17 23:59 23:59 23:59 Intake Total 1669 / 1669 820 / 820 240 / 240 Output Total 1525 / 1525 2300 / 2300 Balance 144 / 144 -1480 / -1480 240 / 240 Microbiology Past 72 Hours 10/23/17 18:30 Tissue Ulcer - Leg Gram Stain - Final 10/23/17 18:30 Tissue Ulcer - Leg Wound Culture - Final Klebsiella oxytoca Proteus sp. Meth. resistant Staph. aureus 10/23/17 18:30 Tissue Ulcer - Leg Anaerobic Culture - Final Anaerobic cocci Bacteroides sp Laboratory Results 10/30/17 11:09: POC Glucose 164 H 10/30/17 15:35: POC Glucose 175 H 10/30/17 22:25: POC Glucose 136 H 10/31/17 03:13: POC Glucose 99 10/31/17 06:44: POC Glucose 66 L 10/31/17 07:04: POC Glucose 74 10/31/17 07:05: Sodium 141, Potassium 4.7, Chloride 96 L, Carbon Dioxide 40.0 H , Anion Gap 5, BUN 19 H, Creatinine 0.46 L, Estim Creat Clear Calc 72.66, Est GFR (MDRD) Af Amer 237, Est GFR (MDRD) Non-Af 196, BUN/Creatinine Ratio 41.5 H, Glucose 96, Calcium 7.7 L Current Medications Acetaminophen (Tylenol) 650 mg PO Q6H PRN PRN PRN Reason: Mild Pain (scale 0-3)/T>100.7 Last Admin: 10/30/17 04:55 Dose: 650 mg Albuterol Sulfate (Ventolin Aerosols) 2.5 mg INHALATION Q2H PRN PRN PRN Reason: SHORTNESS OF BREATH/ WHEEZING Last Admin: 10/31/17 02:55 Dose: 2.5 mg Alprazolam (Xanax) 0.5 mg PO TID PRN PRN PRN Reason: ANXIETY/AGITATION Last Admin: 10/31/17 08:33 Dose: 0.5 mg Aspirin (Aspirin) 325 mg PO DAILY@0800 [facility] Last Admin: 10/31/17 08:33 Dose: 325 mg Atenolol (Tenormin (Beta Patrick)) 100 mg PO DAILY [facility] Last Admin: 10/31/17 09:01 Dose: 100 mg Calcitriol (Rocaltrol) 0.5 mcg PO DAILY [facility] Last Admin: 10/31/17 09:02 Dose: 0.5 mcg Dextrose (D50w Syringe) 0 gm IV X1 PRN; Protocol PRN Reason: Hypoglycemia Last Admin: 10/23/17 21:56 Dose: 25 gm Enoxaparin Sodium (Lovenox) 40 mg SC Q12 [facility] Last Admin: 10/31/17 09:01 Dose: 40 mg Escitalopram Oxalate (Lexapro) 10 mg PO DAILY [facility] Last Admin: 10/31/17 09:01 Dose: 10 mg Glucagon () 1 mg IM .X1 PRN PRN Reason: Hypoglycemia Sodium Chloride () 250 mls @ 15 mls/hr IV .[id number] PRN PRN Reason: SALINE FLUSH Insulin Aspart (Novolog Flexpen (Bkc)) 0 units SC ACHS & 3AM KARLEE PRN Reason: Protocol Last Admin: 10/31/17 06:58 Dose: Not Given Insulin Aspart (Novolog Flexpen (Bkc)) 8 units SC TIDAC [facility] Last Admin: 10/31/17 08:34 Dose: 8 units Insulin Detemir (Levemir (Bkc)) 30 units SC BID [facility] Last Admin: 10/31/17 09:02 Dose: 30 units Levofloxacin (Levaquin) 500 mg PO DAILY@0600 [facility] Last Admin: 10/31/17 06:20 Dose: 500 mg Magnesium Hydroxide (Milk Of Magnesia) 30 ml PO DAILY PRN PRN PRN Reason: Constipation Last Admin: 10/26/17 05:03 Dose: 30 ml Metronidazole (Flagyl) 500 mg PO TID [facility] Last Admin: 10/31/17 06:20 Dose: 500 mg Nutritional Formula (Lactose Free) (Glucerna Shake) 120 ml PO 4X/DAY [facility] Last Admin: 10/31/17 09:02 Dose: 120 ml Ondansetron HCl (Zofran) 4 mg IV Q8H PRN PRN PRN Reason: Nausea Pravastatin Sodium (Pravachol) 20 mg PO QHS [facility] Last Admin: 10/30/17 22:30 Dose: 20 mg Sodium Chloride () 5 - 30 ml IV UD PRN PRN Reason: SALINE FLUSH Last Admin: 10/31/17 08:33 Dose: 10 ml Trimethoprim/Sulfamethoxazole (Bactrim Ds) 1 tablet PO BIDCM [facility] Last Admin: 10/31/17 08:33 Dose: 1 tablet Assessment/Plan Active and Suspected Problems Diabetic foot infection (Acute) Failure to thrive (Acute) Acute respiratory failure with hypoxia and hypercapnia (Acute) Patient is a 67-year-old gentleman with multiple comorbidities including morbid obesity with BMI of 55.6, bilateral lymphedema admitted with lower extremity wound infection. Cultures so far positive for MRSA, Klebsiella oxytoca and Proteus sp. 1. Bilateral lower extremity wound infection secondary to MRSA, Klebsiella oxytoca and Proteus sp. ( in the context of advanced lymphedema). Patient has been managed with vancomycin as well as meropenem. Patient has been seen in consultation by infectious disease PICC line was placed on 10/28/17. Consultation was also placed to podiatry medicine to assist with management 2. Acute hypercapnic respiratory failure secondary to patient's underlying obesity hypoventilation syndrome in addition to narcotics which patient was previously on. Patient was placed on noninvasive ventilation BiPAP with consultation placed a pulmonary medicine Patient was also deemed patient was also deemed to be a contraction alkalosis Lasix was therefore discontinued by pulmonary medicine 3. Metabolic encephalopathy secondary to #2 4. 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 Patient is on long-acting insulin dose did continue home dose with dose adjustment as needed in addition to Accu-Cheks before meals and at bedtime with sliding scale coverage 5. Hypertension-blood pressure controlled, home medications continued with dose adjustment as needed 6. Dyslipidemia-patient is on statin therapy, continued at home dose 7. Bilateral lower extremity lymphedema 8. Morbid obesity with BMI of 55.6 9. Obesity hypoventilation syndrome 10. Obstructive sleep apnea 11. Adult failure to thrive requested for PT OT eval as well as social work specialist to assist with discharge planning 12. DVT prophylaxis patient is on Lovenox dose adjusted for BMI 13. Anxiety disorder cautiously placed on Xanax ADVANCE PLANNING : had an extensive discussion with patient as well as the sister did discuss patient prognosis and CODE STATUS. CODE STATUS changed from full code to DNR CC case was also discussed with social work specialist plan will be to obtain hospice/palliative care consult ; Time spent 18 minutes Code Visit Inpatient E&M: 53595 Subs Hosp L3 Procedures: 98980 Advncd Care Plan 30 Min
--- NOTE | 2017-10-31 11:15 | PCM.PROGNOTE ---
Patient Problems: Active and Suspected Problems Diabetic foot infection (Acute) Failure to thrive (Acute) Acute respiratory failure with hypoxia and hypercapnia (Acute) Subjective: This 67 year old male was seen bedside for bilateral lower extremity infected ulcers with lymphedema. His pain has decreased. He is receiving a breathing treatment at this time. He was seen bedside with wound nurse, Amna. - Physical Exam General: Alert, Cooperative, Lethargic HEENT: Atraumatic Extremities: No cyanosis, Capillary Refill Less than 3 Seconds, Diminished Peripheral Pulses, Edema - bilateral lower extremity edema decreased significantly from last week, Tenderness - posterior leg wound manipulation Skin: Ulcer/ Wound - no purulence, no erythema, no odor, no streaking, no infection bilateral. the wound beds are now subhemmhoragic and granular. There is no longer liquified tissue. There is less skin peeling and lichenification noted. No interdigital maceration seen bilateral. Musculoskeletal: No Tenderness to Palpation of Joints or Extremities, Muscle Wasting Psych/Mental Status: Normal Affect, Appropriate Vital Signs Temp Pulse Resp BP Pulse Ox 97.3 F L 83 20 H 165/82 H 95 10/31/17 09:00 10/31/17 09:00 10/31/17 09:00 10/31/17 09:00 10/31/17 09:01 Oxygen Flow Rate 5 Oxygen Delivery Method Nasal Cannula Weight: 169.5 kg Body Mass Index (BMI) 57.4 Intake and Output for Last 24 Hours 10/29/17 10/30/17 10/31/17 23:59 23:59 23:59 Intake Total 1669 / 1669 820 / 820 240 / 240 Output Total 1525 / 1525 2300 / 2300 Balance 144 / 144 -1480 / -1480 240 / 240 Microbiology Past 72 Hours 10/23/17 18:30 Gram Stain - Final Tissue Ulcer - Leg Wound Culture - Final Klebsiella oxytoca Proteus sp. Meth. resistant Staph. aureus Anaerobic Culture - Final Anaerobic cocci Bacteroides sp Laboratory Tests Past 24 Hrs 10/31/17 07:05 Sodium 141 Potassium 4.7 Chloride 96 L Carbon Dioxide 40.0 H Anion Gap 5 BUN 19 H Creatinine 0.46 L Estim Creat Clear Calc 72.66 Est GFR (MDRD) Af Amer 237 Est GFR (MDRD) Non-Af 196 BUN/Creatinine Ratio 41.5 H Glucose 96 Calcium 7.7 L POC Glucose 10/31/17 10/31/17 10/31/17 07:04 06:44 03:13 POC Glucose 74 66 L 99 10/30/17 10/30/17 10/30/17 22:25 15:35 11:09 POC Glucose 136 H 175 H 164 H Assessment/Plan Active and Suspected Problems Diabetic foot infection (Acute) Failure to thrive (Acute) Acute respiratory failure with hypoxia and hypercapnia (Acute) Left leg ulcers with fat layer exposed, resolving infection Left lower extremity pain resolving Right leg ulcer with fat layer exposed Diabetes with neuropathy Superobesity Bilateral chronic lower extremity lymphedema and edema Other comorbidities being worked up/managed Wounds/feet/legs bilateral continue to improve clinically. Previous left foot and left leg x-ray and CT scan are negative for soft tissue emphysema or foreign body, acute fracture dislocation, or obvious Charcot changes or fluid abscess. Wound culture results reviewed; patient is on antibiotic therapy per Infectious Disease, and input is appreciated. To continue on IV antibiotics (vanco and meropenem) transitioned to oral antibiotics at this time including levaquin, bactrim, and flagyl with a planned stop date of 11/06/17. Continue with local wound care and dressing changes. Dressings were changed today with the assistance of nursing, cleansed feet/legs with soap and normal saline solution. Applied adaptic to the wound sites, with overlying gauze, abd pad, kerlix and jose bandages. Change daily. Continue with offloading heels at all times. DVT prophylaxis, pain management, and medical management per primary team. Podiatry will continue to follow weekly while in house. Ok to d/c from a podiatry standpoing. To [facility] one week after discharge. Corazon De La Cruz DPM [facility] [phone]
[2017-10-31 11:25] LABS: Bedside Glucose 167 mg/dL (70-110)
--- NOTE | 2017-10-31 12:13 | PCM.PROGNOTE ---
Patient Problems: Active and Suspected Problems Diabetic foot infection (Acute) Failure to thrive (Acute) Acute respiratory failure with hypoxia and hypercapnia (Acute) Subjective: Patient was seen and examined. He remains on BiPAP and is not tolerating weaning of oxygen to nasal cannula. Wound care nurse dressing wounds at this time. Patient expressing wishes to take noninvasive positive pressure therapy off. No family is at the bedside at this time. Objective: Patient remains afebrile and hemodynamically stable. Renal function stable. Microbiology showing wound culture of Klebsiella oxytoca, Proteus species, and MRSA. Chest x-ray 10/30 indicated progressive heart failure. Patient is retaining CO2, last blood gas 10/28. - Physical Exam General: Lethargic, - - answering yes/no questions but on BiPAP HEENT: Atraumatic, Normocephalic Neck: Supple, No Nodes, Trachea Midline Lungs: - - Diminished throughout with rhonchi and some wheezing Cardiovascular: Regular rate, Regular Rhythm, Normal S1, Normal S2 Abdomen: Bowel Sounds Present, Soft, Non Tender, Obese Extremities: No clubbing, No cyanosis, Edema Skin: - - Lichenification to abdomen, legs Musculoskeletal: No Tenderness to Palpation of Joints or Extremities Lymphatic: No Cervical, Supraclavicular, or Inguinal Adenopathy Neurological: Cranial nerves II-XII grossly intact, Neuro grossly intact Psych/Mental Status: Flat Affect, Restless, - - semi-lethargic Vital Signs Temp Pulse Resp BP Pulse Ox 97.3 F L 62 21 H 165/82 H 97 10/31/17 09:00 10/31/17 11:25 10/31/17 11:25 10/31/17 09:00 10/31/17 11:25 Oxygen Flow Rate 5 Oxygen Delivery Method Nasal Cannula Weight: 373 lb 10.936 oz Body Mass Index (BMI) 57.4 Intake and Output for Last 24 Hours 10/29/17 10/30/17 10/31/17 23:59 23:59 23:59 Intake Total 1669 / 1669 820 / 820 480 / 480 Output Total 1525 / 1525 2300 / 2300 Balance 144 / 144 -1480 / -1480 480 / 480 Microbiology Past 72 Hours 10/23/17 18:30 Gram Stain - Final Tissue Ulcer - Leg Wound Culture - Final Klebsiella oxytoca Proteus sp. Meth. resistant Staph. aureus Anaerobic Culture - Final Anaerobic cocci Bacteroides sp Laboratory Tests Past 24 Hrs 10/31/17 07:05 Sodium 141 Potassium 4.7 Chloride 96 L Carbon Dioxide 40.0 H Anion Gap 5 BUN 19 H Creatinine 0.46 L Estim Creat Clear Calc 72.66 Est GFR (MDRD) Af Amer 237 Est GFR (MDRD) Non-Af 196 BUN/Creatinine Ratio 41.5 H Glucose 96 Calcium 7.7 L POC Glucose 10/31/17 10/31/17 10/31/17 11:20 07:04 06:44 POC Glucose 167 H 74 66 L 10/31/17 10/30/17 10/30/17 03:13 22:25 15:35 POC Glucose 99 136 H 175 H Assessment/Plan Active and Suspected Problems Diabetic foot infection (Acute) Failure to thrive (Acute) Acute respiratory failure with hypoxia and hypercapnia (Acute) RECOMMENDATIONS 1. Continue BiPAP with breaks as tolerated, wean FiO2 to keep saturations >88% 2. Increase activity as tolerated, PT 3. Continue aerosols on as needed basis 4. Encourage incentive spirometer 5. Antibiotic therapy per ID recommendations 6. Ambulatory pulse ox prior to discharge, if able 7. Wound care per podiatry recommendations 8. Follow up in pulmonary clinic in 2 weeks, if agreeable, will need outpatient PSG 9. Would recommend Hospice/Palliative care consult given multiple comorbidities and poor prognosis IMPRESSIONS 1. Acute respiratory failure with hypoxia and hypercapnia Patient does not have a home oxygen requirement. Presented with tachycardia in the 140s, was maintaining saturations on room air at 99%. Eventually became hypoxic with escalating oxygen requirements from 2 L to BiPAP, having intermittent episodes tachycardia which likely are cause of increased hypoxia. Patient has not been using his incentive spirometer and is essentially immobile. PT eval completed and pt unable to tolerate even sitting up at the bedside, he was a max assist x4. Patient has been diuresed with IV Lasix with subsequent contraction alkalosis. Serum CO2 remains elevated. Cumulative fluid balance -9100. Diuretics were discontinued 10/28. He is no longer on any opiates, but PRN Xanax reordered yesterday. Would continue BiPAP for now and wean as tolerated to nasal cannula. Patient has not tolerated extensive breaks of BiPAP and becomes quite anxious without it. Would consider palliative care consult, given the fact that the patient has expressed he would not wear BiPAP out of the hospital setting. Discussed with Dr. Cisneros. 2. Suspected sleep apnea Patient with multiple comorbidities, admits to daytime somnolence, snoring, and has had witnessed apnea in the past. He is not interested in pursuing any workup as an outpatient as he is claustrophobic with significant anxiety issues and does not like to wear noninvasive positive pressure therapy. However, he may not be able to tolerate being off of positive pressure therapy for extended periods of time. Plans are for discharge to SNF, patient should continue BiPAP there with current settings of 20/10, rate 12, FiO2 30%. He can be offered follow-up appointment if he is in agreement for outpatient PSG testing. 3. Type II DM/diabetic foot infection/GERD/chronic lymphedema/superobesity/hypertension/poor hygiene Complicates care, management, recovery, and prognosis. Management per hospitalist. Wound showing Klebsiella, MRSA, Proteus. Blood cultures were negative. ID is following, as well as podiatry. He is now on oral antibiotics and PICC line can likely be discontinued. Plan is for patient to go to [facility] on discharge when stable. This note was generated with [employer] dictation software. It may contain incorrect words, spelling, and punctuation that were not noted in checking the note before signing.
--- NOTE | 2017-10-31 13:19 | CASEMGMT ---
Addendum entered by Eunice Vo 10/31/17 13:26: ROSLYN called Hallee at [facility] and let her know this information. Eunice CORONEL Original Note: Physician spoke with patient and his sister and they agreed to talk with Hospice. SW asked patient if he would like his sister present when Hospice talked with him and he said he would if she wants to. Pat said she would be there for him. ROSLYN called Hospice and made a referral as well as faxed over information. ROSLYN received a noted from Adelina at [facility] and she said she is meeting with patient and his sister tomorrow at 9am. Eunice CORONEL
--- NOTE | 2017-10-31 13:33 | CPS ---
pt on 6 lpm nasal cannula sat....84%. Pt placed back on Bipap. Sat up to 94%. Aerosol rx given for wheezes.
[2017-10-31 16:26] LABS: Bedside Glucose 164 mg/dL (70-110)
[2017-10-31] MEDS: Pravastatin 20 MG Tablet PO (21:01)
[2017-11-01] VITALS (8 sets, daily range): BP systolic 115–116; BP diastolic 60–68; PULSE 67–78; RESP 12–21; TEMP 36.7–36.9; O2SAT 40–100
[2017-11-01 01:01] LABS: Bedside Glucose 183 mg/dL (70-110)
[2017-11-01 03:31] LABS: Bedside Glucose 84 mg/dL (70-110)
--- NOTE | 2017-11-01 04:46 | CPS ---
decreased fio2 to 35%
[2017-11-01] MEDS: metroNIDAZOLE 500 MG Tablet PO (05:00)
[2017-11-01] MEDS: levoFLOXacin 500 MG Tablet PO (05:00)
[2017-11-01 07:00] LABS: Bedside Glucose 80 mg/dL (70-110)
[2017-11-01] MEDS: Aspirin 325 MG Tablet PO (08:15)
[2017-11-01] MEDS: Escitalopram Oxalate 10 MG Tablet PO (08:15)
[2017-11-01] MEDS: Smz/Tmp Ds Tablet 1 TABLET PO (08:15)
[2017-11-01] MEDS: Enoxaparin 40 MG/0.4 ML Syringe SC (08:16)
[2017-11-01] MEDS: Calcitriol 0.25 MCG Capsule 0.5 MCG PO (08:16)
[2017-11-01] MEDS: Glucerna Shake 120 ML LIQUID PO (08:25)
[2017-11-01] MEDS: Atenolol 100 MG Tablet PO (08:26)
[2017-11-01] MEDS: ALPRAZolam 0.5 MG Tablet PO (08:44)
[2017-11-01] MEDS: Acetaminophen 325 MG Tablet 650 MG PO (08:44)
[2017-11-01] MEDS: Ondansetron 4 MG/2 ML Vial IV (09:10)
--- NOTE | 2017-11-01 09:52 | DCINST_ITS ---
- Discharge Diagnoses Current Active Problems: Current Active and Chronic Problems Diabetic foot infection (Acute) Failure to thrive (Acute) Type 2 diabetes mellitus with diabetic polyneuropathy (Chronic) Ulcer of right lower extremity with fat layer exposed (Chronic) Ulcer of left lower extremity with fat layer exposed (Chronic) Infection of left foot (Chronic) Acute respiratory failure with hypoxia and hypercapnia (Acute) You will use the following diet at home:: Calorie/Carbohydrate Controlled ( specify 1200, 1400, etc) - 1800 Discharge Activity: Return to Normal Activity Allergies/Adverse Reactions: Allergies JOSHUA Inhibitors Allergy (Verified 08/31/14 16:29) Swelling cephalexin monohydrate [From Keflex] Allergy (Verified 08/31/14 16:29) Other Penicillins Allergy (Verified 08/31/14 16:29) Rash ibuprofen Adverse Reaction (Verified 08/31/14 16:29) Other naproxen Adverse Reaction (Verified 08/31/14 16:29) Upset Stomach Medications to take at Discharge Atenolol 50 mg PO DAILY 08/31/14 Calcitriol 0.5 mcg PO DAILY 08/31/14 Escitalopram Oxalate [Lexapro] 10 mg PO DAILY 08/31/14 Furosemide 40 mg PO BID 08/31/14 Pravastatin [Pravachol] 20 mg PO QHS 08/31/14 Acetaminophen [Tylenol Tablet] 650 mg PO Q6H PRN PRN #30 tablet 09/03/14 Aspirin [Aspirin, Baby] 81 mg PO DAILY@0800 10/23/17 Famotidine [Pepcid] 40 mg PO DAILY 10/23/17 ALPRAZolam [Xanax] 0.5 mg PO TID PRN PRN tablet 11/01/17 Albuterol Aerosols [Ventolin Aerosols] 2.5 mg INHALATION Q2H PRN PRN vial.neb. 11/01/17 Glucerna Shake 120 ml PO 4X/DAY liquid 11/01/17 Insulin Aspart [Novolog Flexpen] 8 units SC TIDAC flexpen 11/01/17 Insulin Aspart [Novolog Flexpen] See Protocol SC ACHS & 3AM flexpen 11/01/17 Insulin Detemir [Levemir FlexPen] 30 units SC BID insuln.pen 11/01/17 Levofloxacin [Levaquin] 500 mg PO DAILY@0600 #7 tab 11/01/17 Magnesium Hydroxide [Milk Of Magnesia] 30 ml PO DAILY PRN PRN udc 11/01/17 Metronidazole [Flagyl] 500 mg PO TID #21 tab 11/01/17 Smz/Tmp Ds [Bactrim Ds] 1 tab PO BIDCM #14 tab 11/01/17 The following prescriptions were given: Levofloxacin [Levaquin] 500 mg PO DAILY@0600 #7 tab Metronidazole [Flagyl] 500 mg PO TID #21 tab Smz/Tmp Ds [Bactrim Ds] 1 tab PO BIDCM #14 tab Primary Care Physician: NOT,DEFINED [NON-STAFF] - Proposed Discharge Date: 11/01/17
--- NOTE | 2017-11-01 09:53 | PCM.DC.SUM ---
Discharge Date and Diagnosis - Problem List Patient Problems: Active and Suspected Problems Diabetic foot infection (Acute) Failure to thrive (Acute) Acute respiratory failure with hypoxia and hypercapnia (Acute) Date of Admission: 10/24/17 Date of Discharge: 11/01/17 - Primary Discharge Diagnosis Active and Suspected Problems Diabetic foot infection (Acute) Failure to thrive (Acute) Acute respiratory failure with hypoxia and hypercapnia (Acute) - Secondary Discharge Diagnosis Chronic Problems Diabetes (Chronic) HTN (hypertension) (Chronic) Super obesity (Chronic) Lymphedema of both lower extremities (Chronic) Dyslipidemia (Chronic) GERD (gastroesophageal reflux disease) (Chronic) H/O poor personal hygiene (Chronic) Type 2 diabetes mellitus with diabetic polyneuropathy (Chronic) Ulcer of right lower extremity with fat layer exposed (Chronic) Ulcer of left lower extremity with fat layer exposed (Chronic) Infection of left foot (Chronic) Hospital Course and Treatment Imaging Results: Clinical Impression(s) from Imaging Studies Chest X-Ray 10/23/17 13:57 IMPRESSION: Mild degree of increased markings at the lung bases suggestive of mild basilar atelectasis. Electronically Signed: Tab Blanco MD at 14:40 EST Tel [phone], Service support , Foot X-Ray 10/23/17 16:49 IMPRESSION: Negative for a definitive acute bone or joint findings noting that the metatarsophalangeal joints and many of the phalanges are not adequately visualized as outlined above. Marked soft tissue swelling. Electronically Signed: Consuelo Thomas MD at 19:04 EST , Service support , Foot X-Ray 10/23/17 16:55 IMPRESSION: Marked soft tissue swelling without a definite underlying bone or joint abnormality. The phalanges and particularly are poorly visualized in area secondary to flexion, foreshortening and overlapping. The proximal phalanges of the second, third, fourth and especially the fifth toes are very poorly visualized and cannot be described as normal. The middle phalanges are grossly normal. The distal phalanges are all normal. Electronically Signed: Consuelo Thomas MD at 17:35 EST , Service support , Lower Extremity CT 10/23/17 18:36 IMPRESSION: Severe diffuse skin thickening and subcutaneous edema as detailed above. No evidence of drainable abscess. at 0035 Reported and signed by: Cynthia Phlilips MD Electronically Signed: Cynthia Phillips MD at 23:34 EST Tel , Service support , Tibia/Fibula X-Ray 10/23/17 23:30 IMPRESSION: Degenerative changes and diffuse soft tissue swelling. No evidence of fracture or erosion. at 0028 Reported and signed by: Cynthia Phillips MD Electronically Signed: Cynthia Phillips MD at 23:26 EST Tel , Service support , Shoulder X-Ray 10/26/17 13:44 IMPRESSION: Degenerative changes of the left shoulder as described above. Electronically Signed: Denis Silva MD at 15:47 EST Tel , Service support , Shoulder X-Ray 10/26/17 13:50 IMPRESSION: Degenerative changes of the right shoulder as described above. Electronically Signed: Denis Silva MD at 15:46 EST Tel , Service support , Chest X-Ray 10/27/17 06:42 IMPRESSION: Bilateral infiltrates/edema worse in the right lower lung. Electronically Signed: Denis Silva MD at 9:08 EST Tel , Service support , Chest X-Ray 10/30/17 13:03 IMPRESSION: Findings suggestive of progressive CHF. Electronically Signed: Tab Blanco MD at 14:55 EST Tel [phone], Service support , Consultations 10/23/17 16:46 Consult: Onc/Wound/hospice plan administrator Routine Comment: Summary of Care Provided: Patient is a 67-year-old gentleman with multiple comorbidities including morbid obesity with BMI of 55.6, bilateral lymphedema admitted with lower extremity wound infection. Cultures so far positive for MRSA, Klebsiella oxytoca and Proteus sp. Patient was managed per protocol however in view of worsening respiratory status consultation was placed to the hospitalist service patient was evaluated and felt to be a candidate for inpatient hospice. Was therefore transferred 1. Bilateral lower extremity wound infection secondary to MRSA, Klebsiella oxytoca and Proteus sp. ( in the context of advanced lymphedema). Patient has been managed with vancomycin as well as meropenem. Patient has been seen in consultation by infectious disease PICC line was placed on 10/28/17. Consultation was also placed to podiatry medicine to assist with management 2. Acute hypercapnic respiratory failure secondary to patient's underlying obesity hypoventilation syndrome in addition to narcotics which patient was previously on. Patient was placed on noninvasive ventilation BiPAP with consultation placed a pulmonary medicine Patient was also deemed patient was also deemed to be a contraction alkalosis Lasix was therefore discontinued by pulmonary medicine 3. Metabolic encephalopathy secondary to #2 4. 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 Patient is on long-acting insulin dose did continue home dose with dose adjustment as needed in addition to Accu-Cheks before meals and at bedtime with sliding scale coverage 5. Hypertension-blood pressure controlled, home medications continued with dose adjustment as needed 6. Dyslipidemia-patient is on statin therapy, continued at home dose 7. Bilateral lower extremity lymphedema 8. Morbid obesity with BMI of 55.6 9. Obesity hypoventilation syndrome 10. Obstructive sleep apnea 11. Adult failure to thrive requested for PT OT eval as well as social work specialist to assist with discharge planning 12. DVT prophylaxis patient is on Lovenox dose adjusted for BMI 13. Anxiety disorder cautiously placed on Xanax Discharge Diet: No Restrictions Discharge Activity: Return to Normal Activity Home Medications: Medications to take at Discharge Atenolol 50 mg PO DAILY 08/31/14 Calcitriol 0.5 mcg PO DAILY 08/31/14 Escitalopram Oxalate [Lexapro] 10 mg PO DAILY 08/31/14 Furosemide 40 mg PO BID 08/31/14 Pravastatin [Pravachol] 20 mg PO QHS 08/31/14 Acetaminophen [Tylenol Tablet] 650 mg PO Q6H PRN PRN #30 tablet 09/03/14 Aspirin [Aspirin, Baby] 81 mg PO DAILY@0800 10/23/17 Famotidine [Pepcid] 40 mg PO DAILY 10/23/17 ALPRAZolam [Xanax] 0.5 mg PO TID PRN PRN tablet 11/01/17 Albuterol Aerosols [Ventolin Aerosols] 2.5 mg INHALATION Q2H PRN PRN vial.neb. 11/01/17 Glucerna Shake 120 ml PO 4X/DAY liquid 11/01/17 Insulin Aspart [Novolog Flexpen] 8 units SC TIDAC flexpen 11/01/17 Insulin Aspart [Novolog Flexpen] See Protocol SC ACHS & 3AM flexpen 11/01/17 Insulin Detemir [Levemir FlexPen] 30 units SC BID insuln.pen 11/01/17 Levofloxacin [Levaquin] 500 mg PO DAILY@0600 #7 tab 11/01/17 Magnesium Hydroxide [Milk Of Magnesia] 30 ml PO DAILY PRN PRN udc 11/01/17 Metronidazole [Flagyl] 500 mg PO TID #21 tab 11/01/17 Smz/Tmp Ds [Bactrim Ds] 1 tab PO BIDCM #14 tab 11/01/17 Following Prescrptions Were Given to Patient: Levofloxacin [Levaquin] 500 mg PO DAILY@0600 #7 tab Metronidazole [Flagyl] 500 mg PO TID #21 tab Smz/Tmp Ds [Bactrim Ds] 1 tab PO BIDCM #14 tab Primary Care Physician: NOT,DEFINED [NON-STAFF] - Disposition: Hospice Medical Facility Minutes spent on discharge:: 35 Patient Condition:: Stable Meaningful Use Info Meaningful Use Diagnoses (Choose all that apply): None applicable Code Visit Inpatient E&M: 08292 Disch Hosp
--- NOTE | 2017-11-01 09:58 | CASEMGMT ---
Marybeth from Hospice came to [facility] to talk with patient and his sister. He signed papers and would like to go to the Hospice Inpatient Unit. SW called Johnsyed at [facility] and left her a message with this information. Plan: Hospice Inpatient Unit pending the cvicu nurse evaluation. Eunice KITCHEN MSW
--- NOTE | 2017-11-01 10:41 | NURSING ---
Patient was accepted into Hospice and will be transported to the inpatient unit today. Talked with the Hospice nurse who states they will be assessing the leg wounds when he gets there so there is no need for the dressings to be completed here. In to talk with patient and let him know. Pt appears very anxious and SOB this morning. pt is currently on 5L O2 per N/C. pt has been on and off of bipap. JASON Rascon had recently given patient some Xanax. Sister present in room at this time. dressings are D&I.
--- NOTE | 2017-11-01 11:08 | PN_ITS ---
Patient Problems: Active and Suspected Problems Diabetic foot infection (Acute) Failure to thrive (Acute) Acute respiratory failure with hypoxia and hypercapnia (Acute) Subjective: Patient was seen and examined. He is currently on 6 L of oxygen supplementation and is unable to wear the BiPAP secondary to nausea and potential emesis, despite his dyspnea. His sister, Jacklyn is at the bedside and hospice/palliative care have spoken with the patient and her. They have agreed to inpatient hospice. The patient appears very anxious, this is been his baseline since he has been here when he is off of BiPAP. - Physical Exam General: Alert, Oriented x3, - - obese, anxious, tachypneic, dyspneic HEENT: Atraumatic, Normocephalic Oral: Dry Mucosa Neck: Supple, No Nodes, Trachea Midline Lungs: Diminished, Rhonchi, Wheezes Cardiovascular: Normal S1, Normal S2, Murmur Abdomen: Bowel Sounds Present, Soft, Non Tender, Obese Extremities: No cyanosis, - - lymphedema Skin: - - unchanged Musculoskeletal: Tenderness - all over Lymphatic: - - no adenopathy Neurological: Neuro grossly intact Psych/Mental Status: Anxious, Restless Vital Signs Temp Pulse Resp BP Pulse Ox 98.1 F 67 15 116/68 99 11/01/17 09:10 11/01/17 09:10 11/01/17 09:10 11/01/17 09:10 11/01/17 09:10 Oxygen Flow Rate 6 Oxygen Delivery Method Bi-pap Weight: 374 lb 1.991 oz Body Mass Index (BMI) 57.4 Intake and Output for Last 24 Hours 10/30/17 10/31/17 11/01/17 23:59 23:59 23:59 Intake Total 820 / 820 720 / 720 120 / 120 Output Total 2300 / 2300 Balance -1480 / -1480 720 / 720 120 / 120 Microbiology Past 72 Hours 10/23/17 18:30 Gram Stain - Final Tissue Ulcer - Leg Wound Culture - Final Klebsiella oxytoca Proteus sp. Meth. resistant Staph. aureus Anaerobic Culture - Final Anaerobic cocci Bacteroides sp POC Glucose 11/01/17 11/01/17 10/31/17 06:52 02:59 21:01 POC Glucose 80 84 183 H 10/31/17 10/31/17 16:12 11:20 POC Glucose 164 H 167 H Assessment/Plan Active and Suspected Problems Diabetic foot infection (Acute) Failure to thrive (Acute) Acute respiratory failure with hypoxia and hypercapnia (Acute) RECOMMENDATIONS 1. Continue BiPAP with breaks as tolerated, wean FiO2 to keep saturations >88% 2. Continue aerosols on as needed basis 3. Encourage incentive spirometer 4. Wound care per podiatry recommendations 5. Transfer to inpatient Hospice facility IMPRESSIONS 1. Acute respiratory failure with hypoxia and hypercapnia Patient remains anxious with high flow oxygen requirements. Utilize BiPAP and patient will be transferred today to the inpatient Hospice facility. Patient has not tolerated extensive breaks of BiPAP and becomes quite anxious without it. 2. Suspected sleep apnea Patient with multiple comorbidities, admits to daytime somnolence, snoring, and has had witnessed apnea in the past. He is not interested in pursuing any workup as an outpatient as he is claustrophobic with significant anxiety issues and does not like to wear noninvasive positive pressure therapy. Continue BiPAP for comfort at Hospice facility PRN. 3. Type II DM/diabetic foot infection/GERD/chronic lymphedema/superobesity/ hypertension/poor hygiene Complicates care, management, recovery, and prognosis. Management per hospitalist. Wound showing Klebsiella, MRSA, Proteus. Blood cultures were negative. ID is following, as well as podiatry. PICC line can be discontinued. This note was generated with [employer] dictation software. It may contain incorrect words, spelling, and punctuation that were not noted in checking the note before signing.
[2017-11-01 12:11] LABS: Bedside Glucose 175 mg/dL (70-110)
== END 2017-11-01 13:55 | disposition hospice, inpatient (51) | DRG 622 ==
LOC: ED 15:55 → ICU 16:31 → MS3 10-28 07:07 → PCU 10-28 07:07
PROVIDERS: Internal Medicine; Podiatrist; Emergency Provider Emergency Medicine; Visit Provider Internal Medicine
DX: E11.628 Type 2 diabetes mellitus with other skin complications (principal); J96.01 Acute respiratory failure with hypoxia; L97.922 Non-pressure chronic ulcer of unspecified part of left lower leg with fat layer exposed; L97.912 Non-pressure chronic ulcer of unspecified part of right lower leg with fat layer exposed; J96.02 Acute respiratory failure with hypercapnia; G93.41 Metabolic encephalopathy; L03.115 Cellulitis of right lower limb; Z68.43 Body mass index [BMI] 50.0-59.9, adult; E66.2 Morbid (severe) obesity with alveolar hypoventilation; L03.116 Cellulitis of left lower limb; B95.62 Methicillin resistant Staphylococcus aureus infection as the cause of diseases classified elsewhere; B96.4 Proteus (mirabilis) (morganii) as the cause of diseases classified elsewhere; W19.XXXA Unspecified fall, initial encounter; R62.7 Adult failure to thrive; I89.0 Lymphedema, not elsewhere classified; E11.42 Type 2 diabetes mellitus with diabetic polyneuropathy; E78.5 Hyperlipidemia, unspecified; K21.9 Gastro-esophageal reflux disease without esophagitis; B96.89 Other specified bacterial agents as the cause of diseases classified elsewhere; Z87.891 Personal history of nicotine dependence; Z79.4 Long term (current) use of insulin; Z23 Encounter for immunization; F41.9 Anxiety disorder, unspecified; Y92.009 Unspecified place in unspecified non-institutional (private) residence as the place of occurrence of the external cause; I10 Essential (primary) hypertension; Z66 Do not resuscitate; Z51.5 Encounter for palliative care; L28.0 Lichen simplex chronicus
CPT/HCPCS: 36415; 36569; 36600; 71045; 73030; 73590; 73620; 73700; 80048; 80053; 80202; 82550; 82803; 82947; 82962; 83036; 83605; 83735; 84443; 84484; 85025; 85027; 85652; 86140; 87070; 87075; 87077; 87186; 87205; 87640; 93005; 93306; 94002; 94003; 94640; 97110; 97166; 97530; 97535; 97802; 99285; J2185; J7040; J7050; Q9957; 90686; A4216; C8929; J1940; J2405